=== PATIENT | female | born 1935 | race Caucasian/White ===

== ENCOUNTER → 2016-07-01 | Outpatient (CLI) | payer BC ==
[~2016-07-01] MED LIST: AMIT25TA19 PO; ASPI-232 PO; BIOTCAP2 PO; BNC20 PO; BUDESUS NAE; CLBCRM30 EXT; CYAN3INJ IM; DIAZ-165 PO; DPH/ PO; ERGO1CAP35 PO; HYDR1LIQ8 PO; MULT-614 PO; NITR1CAP32 PO
[2016-07-01 16:47] LABS: BASO % 0.4 %; BASO ABS # 0.03 K/uL (0-0.2); COMPLETE YES; EOS % 1.6 %; HEMATOCRIT 36.5 % (37-47); IG% 0.1 %; LYMPH % 22.1 %; LYMPH ABS # 1.49 K/uL (1.2-3.4); MEAN CELL VOLUME 95.1 fL (80-100); MEAN CORPUSCULAR HEMOGLOBIN 31.5 pg (25-34); MEAN CORPUSCULAR HGB CONC 33.2 g/dl (32-36); MEAN PLATELET VOLUME 10.3 fL (7.4-10.4); NEUT % 67.8 %; PLATELET COUNT 300 K/uL (130-400); RED BLOOD COUNT 3.84 M/uL (4.2-5.4); WHITE BLOOD COUNT 6.75 K/uL (4.8-10.8)
[2016-07-01 17:03] LABS: ALT/SGPT 23 U/L (12-78); AST/SGOT 13 U/L (15-37); BLOOD UREA NITROGEN 19 mg/dl (7-18); BUN/CREATININE RATIO 19.4 (10-20); CALCIUM 9.2 mg/dl (8.5-10.1); CARBON DIOXIDE 27 mmol/L (21-32); CHLORIDE 104 mmol/L (98-107); CHOLESTEROL 258 mg/dl (0-200); CREATININE 0.99 mg/dl (0.60-1.20); GLUCOSE 103 mg/dl (70-99); POTASSIUM 4.1 mmol/L (3.5-5.1); SODIUM 141 mmol/L (136-145)
[2016-07-01 17:14] LABS: ALB/GLOB RATIO 1.1 (0.9-2); ALKALINE PHOSPHATASE 89 U/L (45-117); CHOLESTEROL/HDL RATIO 2.4; HDL CHOLESTEROL 109 mg/dl; LDL CHOLESTEROL CALCULATED 131 mg/dl; TRIGLYCERIDES 91 mg/dl (0-150); VERY LOW DENSITY LIPOPROT CALC 18 mg/dl
[2016-07-02 06:14] LABS: ESTIMATED AVERAGE GLUCOSE 108 mg/dl; HA1C FLAG Normal (Normal)
== END | disposition home or self-care (01) ==
LOC: C.LABBC 15:16
PROVIDERS: ATTEND Internal Medicine
DX: E55.9 Vitamin D deficiency, unspecified (principal)

== ENCOUNTER → 2016-12-03 | Outpatient (CLI) | payer BC ==
--- NOTE | 2016-12-03 11:34 | DIAGNOSTIC IMAGING REPORT ---
DOUBLE CONTRAST UPPER GI SERIES CLINICAL HISTORY: Abdominal fullness. Upper abdominal pain. COMPARISON STUDY: No priors. TECHNIQUE: A standard air contrast upper GI series was performed. Spot images of the esophagus and stomach were obtained in multiple obliquities both upright and prone. FINDINGS: The patient swallowed barium without difficulty. The esophagus is structurally normal without evidence of intrinsic or extrinsic mass. The esophageal mucosal pattern is normal. No gastroesophageal reflux was elicited by having the patient perform the Valsalva maneuver. The gastroesophageal junction distends normally. The stomach is normal in configuration and demonstrates normal distensibility. No mass or ulceration is identified. There was no evidence of gastritis. The duodenal bulb and sweep are unremarkable. Fluoroscopy time: 1.8 minutes. Fluoroscopic images: 21 IMPRESSION: Unremarkable fluoroscopic upper GI assessment. Electronically signed by: Gunnar Parker M.D. 12/03/2016 11:33 AM Dictated Date/Time: 12/03/2016 11:32 AM
== END | disposition home or self-care (01) ==
LOC: C.RAD 10:19
PROVIDERS: ATTEND Internal Medicine
DX: R10.13 Epigastric pain (principal)

== ENCOUNTER → 2017-06-07 | Outpatient (CLI) | payer BC ==
[2017-06-07 16:49] LABS: BASO % 0.5 %; BASO ABS # 0.03 K/uL (0-0.2); EOS ABS # 0.06 K/uL (0-0.5); IG# 0.01 K/uL (0.00-0.02); LYMPH % 20.6 %; LYMPH ABS # 1.28 K/uL (1.2-3.4); MEAN CELL VOLUME 98.6 fL (80-100); MEAN CORPUSCULAR HEMOGLOBIN 32.9 pg (25-34); MEAN CORPUSCULAR HGB CONC 33.3 g/dl (32-36); MEAN PLATELET VOLUME 10.6 fL (7.4-10.4); MONO % 7.9 %; MONO ABS # 0.49 K/uL (0.11-0.59); NEUT % 69.8 %; NEUT ABS # 4.35 K/uL (1.4-6.5); PLATELET COUNT 290 K/uL (130-400); RED CELL DISTRIBUTION WIDTH CV 12.9 % (11.5-14.5); RED CELL DISTRIBUTION WIDTH SD 46.8 fL (36.4-46.3); WHITE BLOOD COUNT 6.22 K/uL (4.8-10.8)
[2017-06-07 17:20] LABS: ALBUMIN 4.1 gm/dl (3.4-5.0); ALT/SGPT 27 U/L (12-78); AST/SGOT 19 U/L (15-37); BLOOD UREA NITROGEN 22 mg/dl (7-18); CALCIUM 9.5 mg/dl (8.5-10.1); CARBON DIOXIDE 30 mmol/L (21-32); CHOLESTEROL 258 mg/dl (0-200); CREATININE 0.94 mg/dl (0.60-1.20); GLUCOSE 89 mg/dl (70-99); POTASSIUM 3.9 mmol/L (3.5-5.1); SODIUM 136 mmol/L (136-145)
[2017-06-07 17:30] LABS: ALKALINE PHOSPHATASE 80 U/L (45-117); LDL CHOLESTEROL CALCULATED 121 mg/dl; TOTAL PROTEIN 7.7 gm/dl (6.4-8.2)
[2017-06-08 07:09] LABS: HEMOGLOBIN A1C 5.3 % (4.5-5.6)
== END | disposition home or self-care (01) ==
LOC: C.LABBC 15:13
PROVIDERS: ATTEND Internal Medicine
DX: I10 Essential (primary) hypertension (principal); K58.9 Irritable bowel syndrome, unspecified; E78.5 Hyperlipidemia, unspecified; I65.29 Occlusion and stenosis of unspecified carotid artery; F41.9 Anxiety disorder, unspecified; R73.01 Impaired fasting glucose

== ENCOUNTER → 2017-12-16 | Outpatient (CLI) | payer BC | END | disposition home or self-care (01) | LOC: C.LABBC 15:13 | PROVIDERS: ATTEND Family Medicine Adult Medicine | DX: D51.0 Vitamin B12 deficiency anemia due to intrinsic factor deficiency (principal); E53.8 Deficiency of other specified B group vitamins ==

== ENCOUNTER 2019-04-09 10:48 | Inpatient (IN) ==
[2019-04-09] MEDS ORDERED: SODIUM CHLORIDE 0.9% 1000ML 500 ML IV ONE (11:40)
[2019-04-09] MEDS ORDERED: OLMESARTAN MEDOXOMIL 20 MG TAB PO SCH (11:45)
[2019-04-09] MEDS ORDERED: SODIUM CHLORIDE 0.9% 500 ML IV SCH (11:45)
[2019-04-09 12:02] LABS: Basophils # (auto) 0.02 K/uL (0-0.2); Basophils % (auto) 0.3 %; Eosinophils # (auto) 0.01 K/uL (0-0.5); Eosinophils % (auto) 0.2 %; Hematocrit (blood only) 39.4 % (37-47); Hemoglobin 14.1 g/dL (12.0-16.0); Immature Granulocytes # (auto) 0.01 K/uL (0.00-0.02); Immature Granulocytes % (auto) 0.2 %; Lymphocytes # (auto) 0.64 K/uL (1.2-3.4); Lymphocytes % (auto) 11.1 %; Mean Corpuscular Hemoglobin 33.1 pg (25-34); Mean Corpuscular Hgb Conc 35.8 g/dL (32-36); Mean Corpuscular Volume 92.5 fL (80-100); Mean Platelet Volume 10.4 fL (7.4-10.4); Monocytes # (auto) 0.53 K/uL (0.11-0.59); Monocytes % (auto) 9.2 %; Neutrophils # (auto) 4.56 K/uL (1.4-6.5); Platelet Count 390 K/uL (130-400); RDW Coefficient of Variation 11.8 % (11.5-14.5); RDW Standard Deviation 39.5 fL (36.4-46.3); Red Blood Count 4.26 M/uL (4.2-5.4); White Blood Count 5.77 K/uL (4.8-10.8)
[2019-04-09 12:16] LABS: Albumin Level 4.2 gm/dl (3.4-5.0); BUN Creatinine Ratio 18.9 (10-20); Calcium 9.4 mg/dl (8.5-10.1); Creatinine Clr Calc Pharmacy 30.9 ml/min; Est GFR (African American) 76.1; Est GFR (Non-African American) 65.7; Potassium 3.8 mmol/L (3.5-5.1)
[2019-04-09 12:18] LABS: Albumin Globulin Ratio 1.1 (0.9-2); Bilirubin,Total 0.9 mg/dl (0.2-1); Globulin 3.7 gm/dl (2.5-4.0); Total Protein 7.9 gm/dl (6.4-8.2)
--- NOTE | 2019-04-09 12:24 | XRay Report ---
XR chest 2V PA/lateral CLINICAL HISTORY: 83 years-old Female presenting with shortness of breath recent PNA. TECHNIQUE: PA and lateral views of the chest were obtained. COMPARISON: 04/05/2019. FINDINGS: Atherosclerosis of the aortic arch. Cardiac silhouette normal in size. Calcified bilateral breast imp lants noted. Lungs are hyperinflated. Minimal bibasilar opacity on lateral projection, stable to slig htly less prominent on the current exam. No new focal opacity. No pleural effusion or pneumothorax. D egenerative changes of the thoracic spine. Upper abdomen normal. IMPRESSION: 1. Minimal bibasilar opacity on lateral projection is stable to decreased from prior exam and may re present minimal scarring or atelectasis. 2. Emphysema. No focal infiltrate to suggest pneumonia. Electronically signed by: Cali Espinoaz M.D. 04/09/2019 12:22 PM
--- NOTE | 2019-04-09 15:46 | Emergency Department Note ---
Entered by Monica Ochoa acting as a scribe for History of Present Illness General Chief complaint: Diarrhea Time Seen by Provider: 04/09/19 11:07 Source: patient History of Present Illness Onset (ago): day(s) 4 Location: abdomen Pain Consistency: + constant Maximum Pain Intensity: 9 Quality: + other (diarrhea) Associated symptoms: + cough (with white sputum), + fever/chills, + headaches, + nausea/vomiting (-vomiting), + shortness of breath and + other (+fatigued) The patient is an 83 year old female, with past medical history of hypertension and anxiety, who presents to the Emergency Room with complaints of constant diarrhea over the past 4 days. The patient states she was seen in the ED 4 days ago when she was diagnosed with pneumonia and prescribed cefdinir. She states her diarrhea started after starting cefdinir. She also notes she has felt fatigued, increased shortness of breath, cough with white sputum, headache, and nausea. The patient reports she has been able to drink fine, but she states anything that she eats goes "right through" her. The patient notes her PCP referred her to the ED. She also reports of a fever that she states started once she started the antibiotics. She states her temperature has reached 103 over the past few days, and she states her temperature was just over 100 prior to arrival. Home Medications Home Medications Medication Instructions Recorded Confirmed Type acetaminophen 325 mg capsule 325 mg PO Q6H PRN 10/17/18 04/09/19 History aspirin 81 mg tablet,delayed 81 mg PO QAM tab 10/17/18 04/09/19 History release biotin 5 mg capsule 5 mg PO QAM cap 10/17/18 04/09/19 History diphenhydramine HCl 25 mg capsule 25 mg PO DAILY PRN cap 10/17/18 04/09/19 History diphenoxylate-atropine 2.5 2 tab PO QID PRN #180 tab 10/17/18 04/09/19 History mg-0.025 mg tablet ergocalciferol (vitamin D2) 50,000 50,000 units PO MONTHLY #3 cap 10/17/18 04/09/19 History unit capsule nitrofurantoin 100 mg PO UD #30 cap 12/05/18 04/09/19 History monohydrate/macrocrystals 100 mg capsule multivit with 1 tab PO QAM 11/03/19 12/09/19 History tjldlfve-eyfw-KM-lutein 8 mg iron-400 mcg-300 mcg tablet syringe with needle 3 mL 25 x 5/8" #6 ea 03/05/19 03/06/19 Rx amitriptyline 25 mg tablet 50 mg PO HS #60 tab 03/09/19 04/09/19 Rx diazepam 5 mg tablet 10 mg PO AC PRN #180 tab 03/12/19 04/09/19 Rx benzonatate 200 mg capsule 200 mg PO TID PRN #30 cap 04/02/19 04/09/19 Rx albuterol sulfate [Ventolin HFA] 1 puffs INH Q6H PRN #8 gm 04/05/19 04/09/19 Rx benzonatate [Tessalon Perles] 100 mg PO TID PRN #30 cap 04/05/19 04/09/19 Rx budesonide [Rhinocort Allergy] 2 spray INTRANASAL DAILY 04/05/19 04/09/19 History cefdinir 300 mg PO BID #28 cap 04/05/19 04/09/19 Rx cyanocobalamin (vitamin B-12) 1,000 mcg IM .EVERY 2 WEEKS 04/05/19 04/09/19 History olmesartan [Benicar] 20 mg PO QAM 04/09/19 04/09/19 History Allergies Allergy/AdvReac Type Severity Reaction Status Date / Time Penicillins Allergy Mild Verified 04/09/19 13:39 acetaminophen Allergy Verified 04/09/19 13:39 [From Tylenol-Codeine] aloe vera Allergy Verified 04/09/19 13:39 amlodipine [From Norvasc] Allergy Verified 04/09/19 13:39 ciprofloxacin Allergy Anaphylaxis Verified 04/09/19 13:39 codeine Allergy Verified 04/09/19 13:39 [From Tylenol-Codeine] meloxicam Allergy Verified 04/09/19 13:39 pseudoephedrine Allergy Verified 04/09/19 13:39 [From Sudafed] pantoprazole AdvReac Intermediate Gastrointestinal Verified 04/09/19 13:39 Upset Past Med/Surg History Medical History Anemia Anxiety disorder Generalized osteoarthritis of multiple sites (Acute) HTN (hypertension) (Acute) Hyperlipidemia (Acute) Impaired fasting glucose Irritable bowel syndrome Knee pain, bilateral Osteopenia Pernicious anemia Vitamin B12 deficiency Vitamin D deficiency Family History Father Congestive heart failure Aunt Breast cancer Atrial fibrillation Social History Preferred Language: Kazakh Communication Ability: Effective Visual Impairment: No Limitations Hearing Ability: Normal Machine Clipper Required: No Beliefs That Will Affect Care: None marital status: Current Living Situation: Spouse current occupational status: retired Other Information That Helps Us Care for You: No Feels Safe at Home: Yes Safety Concerns: Feels Safe At This Time Smoking Status: Former smoker Do You Dip or Chew Tobacco: No ; Second Hand Exposure: No ; Tobacco Cessation Education Requested by Patient: No Hx Alcohol Use: Yes Alcohol type: wine Alcohol Intake Frequency: Daily Hx Substance Use: No Childhood Exposure to Second-Hand Smoke: Yes Dental Care, Regularly: Yes Physical Activity Frequency: Does not Exercise Seatbelt Use: always Sunscreen Use: Yes Review of Systems See HPI for pertinent positives & negatives. and A total of 10 systems reviewed and were otherwise negative Physical Exam Vital Signs Vital Signs - 24 hr 04/09/19 10:57 04/09/19 10:59 04/09/19 11:00 Temperature Temperature Source Pulse Rate 101 H 96 H 99 H Pulse Rate [Apical] Pulse Rate from SpO2 Sensor 97 H 98 H Pulse Rhythm Pulse Strength Respiratory Rate 24 24 21 Respiratory Effort / Characteristics Respiratory Depth Respiratory Pattern Blood Pressure 198/110 H 190/106 H Blood Pressure [Left Arm] Blood Pressure Mean 144 126 Blood Pressure Mean [Left Arm] Blood Pressure Position Pulse Oximetry 98 98 Oxygen Delivery Method Sepsis Recent Fever Within 48 Hours Sepsis New/Unexplained Change in Mental Status Sepsis Action Taken by Nursing 04/09/19 11:01 04/09/19 11:10 04/09/19 11:20 Temperature 36.7 C Temperature Source Oral Pulse Rate 96 H 97 H 92 H Pulse Rate [Apical] Pulse Rate from SpO2 Sensor 97 H 91 H Pulse Rhythm Regular Pulse Strength Normal Respiratory Rate 22 19 23 Respiratory Effort / Characteristics Non-Labored Spontaneous Respiratory Depth Normal Respiratory Pattern Regular Blood Pressure 198/110 H Blood Pressure [Left Arm] Blood Pressure Mean 139 Blood Pressure Mean [Left Arm] Blood Pressure Position Sitting Pulse Oximetry 97 98 98 Oxygen Delivery Method Room Air Sepsis Recent Fever Within 48 Hours No Sepsis New/Unexplained Change in Mental Status No Sepsis Action Taken by Nursing No Action Required 04/09/19 11:30 04/09/19 11:31 04/09/19 11:40 Temperature Temperature Source Pulse Rate 101 H 98 H 87 Pulse Rate [Apical] Pulse Rate from SpO2 Sensor 101 H 98 H 89 Pulse Rhythm Pulse Strength Respiratory Rate 19 21 20 Respiratory Effort / Characteristics Respiratory Depth Respiratory Pattern Blood Pressure 168/101 H Blood Pressure [Left Arm] Blood Pressure Mean 120 Blood Pressure Mean [Left Arm] Blood Pressure Position Pulse Oximetry 98 97 97 Oxygen Delivery Method Sepsis Recent Fever Within 48 Hours Sepsis New/Unexplained Change in Mental Status Sepsis Action Taken by Nursing 04/09/19 11:50 04/09/19 12:00 04/09/19 12:10 Temperature Temperature Source Pulse Rate 102 H 94 H Pulse Rate [Apical] Pulse Rate from SpO2 Sensor 101 H 94 H Pulse Rhythm Pulse Strength Respiratory Rate 16 24 Respiratory Effort / Characteristics Respiratory Depth Respiratory Pattern Blood Pressure 181/94 H Blood Pressure [Left Arm] Blood Pressure Mean 113 Blood Pressure Mean [Left Arm] Blood Pressure Position Pulse Oximetry 98 93 Oxygen Delivery Method Sepsis Recent Fever Within 48 Hours Sepsis New/Unexplained Change in Mental Status Sepsis Action Taken by Nursing 04/09/19 12:20 04/09/19 12:21 04/09/19 12:30 Temperature Temperature Source Pulse Rate 92 H 92 H Pulse Rate [Apical] 96 H Pulse Rate from SpO2 Sensor 91 H 93 H Pulse Rhythm Pulse Strength Respiratory Rate 16 20 18 Respiratory Effort / Characteristics Respiratory Depth Respiratory Pattern Blood Pressure 189/105 H Blood Pressure [Left Arm] 181/94 H Blood Pressure Mean 150 Blood Pressure Mean [Left Arm] 123 Blood Pressure Position Pulse Oximetry 98 96 100 Oxygen Delivery Method Room Air Sepsis Recent Fever Within 48 Hours Sepsis New/Unexplained Change in Mental Status Sepsis Action Taken by Nursing 04/09/19 12:31 04/09/19 12:40 04/09/19 12:50 Temperature Temperature Source Pulse Rate 90 94 H 96 H Pulse Rate [Apical] Pulse Rate from SpO2 Sensor 90 94 H 94 H Pulse Rhythm Pulse Strength Respiratory Rate 19 17 18 Respiratory Effort / Characteristics Respiratory Depth Respiratory Pattern Blood Pressure Blood Pressure [Left Arm] Blood Pressure Mean Blood Pressure Mean [Left Arm] Blood Pressure Position Pulse Oximetry 98 98 98 Oxygen Delivery Method Sepsis Recent Fever Within 48 Hours Sepsis New/Unexplained Change in Mental Status Sepsis Action Taken by Nursing 04/09/19 13:02 04/09/19 13:04 04/09/19 13:10 Temperature Temperature Source Pulse Rate 120 H 108 H 98 H Pulse Rate [Apical] Pulse Rate from SpO2 Sensor 106 H 98 H Pulse Rhythm Pulse Strength Respiratory Rate 23 22 19 Respiratory Effort / Characteristics Respiratory Depth Respiratory Pattern Blood Pressure 202/130 H Blood Pressure [Left Arm] Blood Pressure Mean 142 Blood Pressure Mean [Left Arm] Blood Pressure Position Pulse Oximetry 96 97 Oxygen Delivery Method Sepsis Recent Fever Within 48 Hours Sepsis New/Unexplained Change in Mental Status Sepsis Action Taken by Nursing 04/09/19 13:20 04/09/19 13:30 04/09/19 13:31 Temperature Temperature Source Pulse Rate 97 H 101 H 101 H Pulse Rate [Apical] Pulse Rate from SpO2 Sensor 98 H 99 H 100 H Pulse Rhythm Pulse Strength Respiratory Rate 18 18 21 Respiratory Effort / Characteristics Respiratory Depth Respiratory Pattern Blood Pressure 185/112 H Blood Pressure [Left Arm] Blood Pressure Mean 157 Blood Pressure Mean [Left Arm] Blood Pressure Position Pulse Oximetry 98 97 97 Oxygen Delivery Method Sepsis Recent Fever Within 48 Hours Sepsis New/Unexplained Change in Mental Status Sepsis Action Taken by Nursing 04/09/19 13:40 04/09/19 13:50 04/09/19 14:00 Temperature Temperature Source Pulse Rate 98 H 89 95 H Pulse Rate [Apical] Pulse Rate from SpO2 Sensor 99 H 91 H 96 H Pulse Rhythm Pulse Strength Respiratory Rate 17 20 17 Respiratory Effort / Characteristics Respiratory Depth Respiratory Pattern Blood Pressure 183/113 H Blood Pressure [Left Arm] Blood Pressure Mean 155 Blood Pressure Mean [Left Arm] Blood Pressure Position Pulse Oximetry 97 97 97 Oxygen Delivery Method Sepsis Recent Fever Within 48 Hours Sepsis New/Unexplained Change in Mental Status Sepsis Action Taken by Nursing 04/09/19 14:01 04/09/19 14:10 04/09/19 14:31 Temperature Temperature Source Pulse Rate 95 H 90 103 H Pulse Rate [Apical] Pulse Rate from SpO2 Sensor 97 H 89 Pulse Rhythm Pulse Strength Respiratory Rate 19 29 H 18 Respiratory Effort / Characteristics Respiratory Depth Respiratory Pattern Blood Pressure Blood Pressure [Left Arm] Blood Pressure Mean Blood Pressure Mean [Left Arm] Blood Pressure Position Pulse Oximetry 97 97 Oxygen Delivery Method Sepsis Recent Fever Within 48 Hours Sepsis New/Unexplained Change in Mental Status Sepsis Action Taken by Nursing 04/09/19 14:33 04/09/19 14:40 04/09/19 14:50 Temperature Temperature Source Pulse Rate 100 H 101 H Pulse Rate [Apical] 100 H Pulse Rate from SpO2 Sensor 99 H 95 H Pulse Rhythm Pulse Strength Respiratory Rate 20 19 18 Respiratory Effort / Characteristics Respiratory Depth Respiratory Pattern Blood Pressure Blood Pressure [Left Arm] 179/89 H Blood Pressure Mean Blood Pressure Mean [Left Arm] 119 Blood Pressure Position Pulse Oximetry 99 98 98 Oxygen Delivery Method Room Air Sepsis Recent Fever Within 48 Hours Sepsis New/Unexplained Change in Mental Status Sepsis Action Taken by Nursing 04/09/19 15:00 04/09/19 15:01 04/09/19 15:20 Temperature Temperature Source Pulse Rate 101 H 103 H 113 H Pulse Rate [Apical] Pulse Rate from SpO2 Sensor 105 H 104 H Pulse Rhythm Pulse Strength Respiratory Rate 18 20 26 H Respiratory Effort / Characteristics Respiratory Depth Respiratory Pattern Blood Pressure 181/113 H Blood Pressure [Left Arm] Blood Pressure Mean 159 Blood Pressure Mean [Left Arm] Blood Pressure Position Pulse Oximetry 98 95 Oxygen Delivery Method Sepsis Recent Fever Within 48 Hours Sepsis New/Unexplained Change in Mental Status Sepsis Action Taken by Nursing 04/09/19 15:30 04/09/19 15:31 Temperature Temperature Source Pulse Rate 95 H 99 H Pulse Rate [Apical] Pulse Rate from SpO2 Sensor Pulse Rhythm Pulse Strength Respiratory Rate 24 21 Respiratory Effort / Characteristics Respiratory Depth Respiratory Pattern Blood Pressure 164/122 H Blood Pressure [Left Arm] Blood Pressure Mean 135 Blood Pressure Mean [Left Arm] Blood Pressure Position Pulse Oximetry Oxygen Delivery Method Sepsis Recent Fever Within 48 Hours Sepsis New/Unexplained Change in Mental Status Sepsis Action Taken by Nursing Vital signs reviewed. General: Well-appearing, elderly, in no significant distress. HEENT: No scleral icterus, PERRLA, neck supple. Dry mucus membranes. Atraumatic. Cardiovascular: Regular rate and rhythm, no extra sounds. Pulmonary: Clear to auscultation bilaterally, normal work of breathing. Abdomen: Soft, mild lower abdomen tenderness, nondistended, positive bowel sounds. Musculoskeletal: Atraumatic, no peripheral edema. Neurologic: Patient awake alert and oriented x 3. Skin: Warm, dry, no rash. Somewhat pale in appearance. Course Course 1115: Past medical records reviewed. The patient was evaluated in room C4 by Resident-Barry Betancur. A complete history and physical exam was performed. 1149: I evaluated the patient. A complete history and physical exam was performed. 1400: I reviewed the [facility]'s [facility] He will evaluate the patient for further management. Consultations Consultation #1: I reviewed the patient's [facility] He will evaluate the patient for further management. Time: 14:00 Administered Medications Al Hydrox/Mg Hydrox/Simethicone (Maalox) 15 ml PO Q4H PRN PRN Reason: Dyspepsia Stop: 05/09/19 17:01 Last Admin: 04/11/19 08:19 Dose: 15 ml Documented by: [id number] Admin: 04/10/19 21:25 Dose: 15 ml Documented by: [id number] Amitriptyline HCl (Elavil) 50 mg PO HS [facility] Stop: 05/09/19 20:59 Last Admin: 04/10/19 21:25 Dose: 50 mg Documented by: [id number] Admin: 04/09/19 20:17 Dose: 50 mg Documented by: [id number] Aspirin (Ecotrin Ectab) 81 mg PO QAM [facility] Stop: 05/10/19 08:59 Last Admin: 04/11/19 08:59 Dose: 81 mg Documented by: [id number] Admin: 04/10/19 08:26 Dose: 81 mg Documented by: [id number] Budesonide (Rhinocort Aq) 2 sprays NA DAILY [facility] Stop: 05/10/19 08:59 Last Admin: 04/11/19 09:00 Dose: 2 sprays Documented by: [id number] Admin: 04/10/19 08:26 Dose: 2 sprays Documented by: [id number] Diphenhydramine HCl (Benadryl Capsule) 25 mg PO DAILY PRN PRN Reason: PRN Stop: 05/09/19 16:58 Last Admin: 04/10/19 22:01 Dose: 25 mg Documented by: [id number] Heparin Sodium (Porcine) (Heparin Sodium (Porcine)) 5,000 units SQ Q12 [facility] Stop: 05/09/19 20:59 Last Admin: 04/11/19 09:01 Dose: 5,000 units Documented by: [id number] Cosigned by: [id number] Admin: 04/10/19 22:21 Dose: Not Given Documented by: [id number] Admin: 04/10/19 08:25 Dose: 5,000 units Documented by: [id number] Cosigned by: [id number] Admin: 04/09/19 20:17 Dose: 5,000 units Documented by: [id number] Cosigned by: [id number] Hydralazine HCl (Hydralazine Hcl) 10 mg IV Q4H PRN PRN Reason: Hypertension Stop: 05/10/19 04:09 Last Admin: 04/10/19 04:41 Dose: 10 mg Documented by: [id number] Sodium Chloride (Nss 1000ml) 1,000 mls @ 100 mls/hr IV .Q10H PRATEEK Stop: 05/09/19 19:29 Last Admin: 04/11/19 10:08 Dose: 100 mls/hr Documented by: [id number] Infusion: 04/11/19 10:08 Dose: 100 mls/hr Documented by: [id number] Admin: 04/10/19 23:32 Dose: 60 mls/hr Documented by: [id number] Infusion: 04/10/19 23:32 Dose: 60 mls/hr Documented by: [id number] Admin: 04/10/19 12:28 Dose: 60 mls/hr Documented by: [id number] Infusion: 04/10/19 12:28 Dose: 60 mls/hr Documented by: [id number] Admin: 04/09/19 20:13 Dose: 60 mls/hr Documented by: [id number] Ceftriaxone Sodium 1,000 mg/ (Dextrose) 60 mls @ 100 mls/hr IV Q24H PRATEEK; Protocol Stop: 04/11/19 19:59 Last Infusion: 04/10/19 22:03 Dose: 0 mls/hr Documented by: [id number] Admin: 04/10/19 21:25 Dose: 100 mls/hr Documented by: [id number] Infusion: 04/09/19 20:58 Dose: 0 mls/hr Documented by: [id number] Admin: 04/09/19 20:16 Dose: 100 mls/hr Documented by: [id number] Lactobacillus Acidophilus (Floranex Granules/Powder Packet) 1 gm PO TIDM [facility] Stop: 05/10/19 07:59 Last Admin: 04/11/19 13:20 Dose: 1 gm Documented by: [id number] Admin: 04/11/19 09:00 Dose: 1 gm Documented by: [id number] Admin: 04/10/19 17:39 Dose: 1 gm Documented by: [id number] Admin: 04/10/19 12:28 Dose: 1 gm Documented by: [id number] Admin: 04/10/19 08:25 Dose: 1 gm Documented by: [id number] Metoprolol Tartrate (Lopressor) 25 mg PO BID [facility] Stop: 05/09/19 20:59 Last Admin: 04/11/19 08:59 Dose: 25 mg Documented by: [id number] Admin: 04/10/19 21:25 Dose: 25 mg Documented by: [id number] Admin: 04/10/19 08:25 Dose: 25 mg Documented by: [id number] Admin: 04/09/19 21:05 Dose: 25 mg Documented by: [id number] Olmesartan (Benicar) 20 mg PO QAM [facility] Stop: 05/10/19 08:59 Last Admin: 04/11/19 09:00 Dose: 20 mg Documented by: [id number] Admin: 04/10/19 08:24 Dose: 20 mg Documented by: [id number] Sodium Chloride (Sodium Chloride) 1 gm PO DAILY [facility] Stop: 05/10/19 08:59 Last Admin: 04/11/19 08:59 Dose: 1 gm Documented by: [id number] Admin: 04/10/19 08:31 Dose: 1 gm Documented by: [id number] Zolpidem Tartrate (Ambien) 5 mg PO HS PRN PRN Reason: Sleep Stop: 05/09/19 17:01 Last Admin: 04/10/19 23:32 Dose: 5 mg Documented by: [id number] Discontinued Medications Acetaminophen (Tylenol) 325 mg PO Q6H PRN PRN Reason: pain/fever Stop: 05/07/19 16:58 Last Admin: 04/10/19 04:45 Dose: 325 mg Documented by: [id number] Acetaminophen (Tylenol) 1,000 mg PO ONE ONE Stop: 04/10/19 17:23 Last Admin: 04/10/19 17:40 Dose: 1,000 mg Documented by: [id number] Sodium Chloride (Nss 1000ml) 500 mls @ 999 mls/hr IV .Q31M ONE Stop: 04/09/19 12:10 Last Infusion: 04/09/19 12:56 Dose: 0 mls/hr Documented by: [id number] Admin: 04/09/19 11:43 Dose: 999 mls/hr Documented by: [id number] Sodium Chloride (Nss) 500 mls @ 80 mls/hr IV .Q6H15M [facility]EK Stop: 04/09/19 17:59 Last Infusion: 04/09/19 19:04 Dose: 0 mls/hr Documented by: [id number] Admin: 04/09/19 11:43 Dose: 80 mls/hr Documented by: [id number] Lidocaine/Epinephrine (Xylocaine/Epine 2% 1:100,000) 20 ml INFIL ONE ONE Stop: 04/10/19 16:45 Last Admin: 04/10/19 23:57 Dose: Not Given Documented by: [id number] Olmesartan (Benicar) 20 mg PO QAM [facility] Stop: 05/09/19 11:44 Last Admin: 04/09/19 12:20 Dose: 20 mg Documented by: [id number] Raspberry (Raspberry) 5 ml PO Q6 [facility] Stop: 04/23/19 19:59 Last Admin: 04/10/19 00:15 Dose: Not Given Documented by: [id number] Admin: 04/09/19 20:17 Dose: 5 ml Documented by: [id number] Vancomycin HCl (Vancomycin Hcl) 250 mg PO Q6 [facility] Stop: 04/19/19 19:59 Last Admin: 04/10/19 00:15 Dose: Not Given Documented by: [id number] Admin: 04/09/19 20:17 Dose: 250 mg Documented by: [id number] Medical Decision Making Differential Diagnosis Differential diagnoses include C. Diff colitis, GI bleed, viral illness, ischemic colitis, food borne pathogen, amongst others that were considered. Medical Records Attestation: I reviewed the patient's medical records. Home Medications Current Medication List: was personally reviewed by me Laboratory Data Attestation: I reviewed the patient's lab results. Result diagrams: 04/11/19 05:51 04/11/19 05:51 Lab Results 04/09/19 04/09/19 Range/Units 11:15 11:15 WBC 5.77 (4.8-10.8) K/uL RBC 4.26 (4.2-5.4) M/uL Hgb 14.1 (12.0-16.0) g/dL Hct 39.4 (37-47) % MCV 92.5 (80-100) fL MCH 33.1 (25-34) pg MCHC 35.8 (32-36) g/dL RDW Std Deviation 39.5 (36.4-46.3) fL RDW Coeff of Ramone 11.8 (11.5-14.5) % Plt Count 390 (130-400) K/uL MPV 10.4 (7.4-10.4) fL Immature Gran % (Auto) 0.2 % Neut % (Auto) 79.0 % Lymph % (Auto) 11.1 % Wilcox % (Auto) 9.2 % Eos % (Auto) 0.2 % Baso % (Auto) 0.3 % Immature Gran # (Auto) 0.01 (0.00-0.02) K/uL Neut # (Auto) 4.56 (1.4-6.5) K/uL Lymph # (Auto) 0.64 L (1.2-3.4) K/uL Wilcox # (Auto) 0.53 (0.11-0.59) K/uL Eos # (Auto) 0.01 (0-0.5) K/uL Baso # (Auto) 0.02 (0-0.2) K/uL Sodium 125 L (136-145) mmol/L Potassium 3.8 (3.5-5.1) mmol/L Chloride 87 L (98-107) mmol/L Carbon Dioxide 23 (21-32) mmol/L Anion Gap 15.0 H (3-11) BUN 16 (7-18) mg/dl Creatinine 0.83 (0.6-1.2) mg/dl Est Cr Clr Drug Dosing 30.9 ml/min Est GFR ( Amer) 76.1 Est GFR (Non-Af Amer) 65.7 BUN/Creatinine Ratio 18.9 (10-20) Glucose 80 (70-99) mg/dl Calcium 9.4 (8.5-10.1) mg/dl Total Bilirubin 0.9 (0.2-1) mg/dl AST 26 (15-37) U/L ALT 32 (12-78) U/L Alkaline Phosphatase 82 (45-117) U/L Total Protein 7.9 (6.4-8.2) gm/dl Albumin 4.2 (3.4-5.0) gm/dl Globulin 3.7 (2.5-4.0) gm/dl Albumin/Globulin Ratio 1.1 (0.9-2) Imaging Data Radiologist's Impression: Radiology results as stated below per my review and the radiologist's interpretation: XR chest 2V PA/lateral CLINICAL HISTORY: 83 years-old Female presenting with shortness of breath recent PNA. TECHNIQUE: PA and lateral views of the chest were obtained. COMPARISON: 04/05/2019. FINDINGS: Atherosclerosis of the aortic arch. Cardiac silhouette normal in size. Calcified bilateral breast implants noted. Lungs are hyperinflated. Minimal bibasilar opacity on lateral projection, stable to slightly less prominent on the current exam. No new focal opacity. No pleural effusion or pneumothorax. Degenerative changes of the thoracic spine. Upper abdomen normal. IMPRESSION: 1. Minimal bibasilar opacity on lateral projection is stable to decreased from prior exam and may represent minimal scarring or atelectasis. 2. Emphysema. No focal infiltrate to suggest pneumonia. Electronically signed by: Cali Espinoza M.D. 04/09/2019 12:22 PM ECG Data Attestation: I personally reviewed and interpreted this ECG as follows: Indication: + SOB/dyspnea Rate (beats per minute): 95 Rhythm: + normal sinus ECG Intervals/blocks: + Normal QT-c ECG ST segments: no ST depression and no ST elevation ECG Findings: no PACs and no PVCs Blood Pressure Blood Pressure Findings: Elevated blood pressure Blood Pressure Disposition: further management by hospitalist MDM Narrative This pt was evaluated and appeared to be in no distress. IV access was obtained and lab work was drawn. IVF were initiated. Pt is noted to be hyponatremic at 129. Pt was unable to provide a stool sample in the ED. Pt is feeling weak and will require IV fluid and sodium repletion. Pt was d/w the hospitalist service for further management. Impression & Plan Acute hyponatremia, Diarrhea Discharge Plan Visit Data *Final* Discharge Date/Time: 04/09/19 17:56 Chief Complaint: Diarrhea ED Provider: Chantelle Jackson Discharge Problem: Acute hyponatremia, Diarrhea Patient Disposition: Admitted As Inpatient Discharge Instructions Interventions: ED Discharge Assessment Last Done: 04/09/19 17:56 Discharge Problem: Diarrhea Qualifiers: Diarrhea type: presumed infectious Qualified Code(s): R19.7 - Diarrhea, unspecified The scribe's documentation has been prepared under my direction and personally reviewed by me in its entirety. I confirm that the note above accurately reflects all work, treatment, procedures, and medical decision making performed by me.
[2019-04-09] MEDS ORDERED: ALBUTEROL HFA 8 GM INHALER INH PRN (16:59)
[2019-04-09] MEDS ORDERED: diazePAM 5 MG TABLET PO PRN (16:59)
[2019-04-09] MEDS ORDERED: BENZONATATE 100 MG CAPSULE PO PRN ×2 (16:59)
[2019-04-09] MEDS ORDERED: ACETAMINOPHEN 325 MG TAB PO PRN (16:59)
[2019-04-09] MEDS ORDERED: MAGNESIUM HYDROXIDE SUSP 30 ML UDC PO PRN (17:02)
[2019-04-09] MEDS: SODIUM CHLORIDE 0.9% 1000ML 1,000 ML IV SCH (20:13)
[2019-04-09] MEDS: cefTRIAXone SODIUM 1,000 MG in DEXTROSE 5% 50 ML IV SCH (20:16)
[2019-04-09] MEDS: RASPBERRY SYRUP 5 ML UDP PO SCH (20:17)
[2019-04-09] MEDS: HEPARIN SOD 5,000 UNIT/0.5 ML VIAL SQ SCH (20:17)
[2019-04-09] MEDS: AMITRIPTYLINE HCL 25 MG TAB PO SCH (20:17)
[2019-04-09] MEDS: VANCOMYCIN HCL 250 MG/5 ML SOLN PO SCH (20:17)
--- NOTE | 2019-04-09 20:25 | History & Physical Report ---
Date of Service April 09, 2019 Assessment & Plan (1) Diarrhea associated with pseudomembranous colitis: In the setting of recent use of antibiotics, will order C. difficile Treat empirically for C. difficile with vancomycin 250 mg p.o. every 6 hours Ordered also stool culture Lactobacillus every 8 hours Further recommendation will follow (2) Pneumonia: Currently has been on cefdinir with improvement in her cough as per patient Continue ceftriaxone x3 more days with lactobacillus Then stop after 3 days all antibiotics for fear of C. difficile (3) Acute hyponatremia: Hypovolemic hyponatremia Continue normal saline infusion sodium level in a.m. (4) Vitamin B12 deficiency: On B12 injections every 2 weeks last was 2 days ago (5) HTN (hypertension): Currently elevated blood pressure with tachycardia Continue Benicar, add metoprolol 25 mg p.o. twice daily first dose now History of Present Illness Chief Complaint: Severe diarrhea Primary Care Provider: Cali Zuleta MD 83 years old female with past medical history of anxiety, osteoarthritis, essential hypertension, dyslipidemia, irritable bowel syndrome, pernicious anemia/B12 deficiency on B12 intramuscular injection every 2 weeks presented to the hospital on 04/05/2019 she was found to have suspected airspace consolidation in the posterior lung bases, she was giving cefdinir. Patient reported that her cough improved but 2 days ago she developed explosive diarrhea more than 12 times a day with severe decreased oral intake, presented to the hospital again and found to have acute hyponatremia and severe dehydration. Patient will be admitted for further evaluation and management. Allergies Allergy/AdvReac Type Severity Reaction Status Date / Time Penicillins Allergy Mild Verified 04/09/19 13:39 acetaminophen Allergy Verified 04/09/19 13:39 [From Tylenol-Codeine] aloe vera Allergy Verified 04/09/19 13:39 amlodipine [From Norvasc] Allergy Verified 04/09/19 13:39 ciprofloxacin Allergy Anaphylaxis Verified 04/09/19 13:39 codeine Allergy Verified 04/09/19 13:39 [From Tylenol-Codeine] meloxicam Allergy Verified 04/09/19 13:39 pseudoephedrine Allergy Verified 04/09/19 13:39 [From Sudafed] pantoprazole AdvReac Intermediate Gastrointestinal Verified 04/09/19 13:39 Upset Home Medications Home Medications Medication Instructions Recorded Confirmed Type acetaminophen 325 mg capsule 325 mg PO Q6H PRN 10/17/18 04/09/19 History aspirin 81 mg tablet,delayed 81 mg PO QAM tab 10/17/18 04/09/19 History release biotin 5 mg capsule 5 mg PO QAM cap 10/17/18 04/09/19 History diphenhydramine HCl 25 mg capsule 25 mg PO DAILY PRN cap 10/17/18 04/09/19 History diphenoxylate-atropine 2.5 2 tab PO QID PRN #180 tab 10/17/18 04/09/19 History mg-0.025 mg tablet ergocalciferol (vitamin D2) 50,000 50,000 units PO MONTHLY #3 cap 10/17/18 04/09/19 History unit capsule nitrofurantoin 100 mg PO UD #30 cap 12/05/18 04/09/19 History monohydrate/macrocrystals 100 mg capsule multivit with 1 tab PO QAM 03/04/19 04/09/19 History gpfoejbh-diog-OG-lutein 8 mg iron-400 mcg-300 mcg tablet syringe with needle 3 mL 25 x 5/8" #6 ea 03/05/19 03/06/19 Rx amitriptyline 25 mg tablet 50 mg PO HS #60 tab 03/09/19 04/09/19 Rx diazepam 5 mg tablet 10 mg PO AC PRN #180 tab 03/12/19 04/09/19 Rx benzonatate 200 mg capsule 200 mg PO TID PRN #30 cap 04/02/19 04/09/19 Rx albuterol sulfate [Ventolin HFA] 1 puffs INH Q6H PRN #8 gm 04/05/19 04/09/19 Rx benzonatate [Tessalon Perles] 100 mg PO TID PRN #30 cap 04/05/19 04/09/19 Rx budesonide [Rhinocort Allergy] 2 spray INTRANASAL DAILY 04/05/19 04/09/19 History cefdinir 300 mg PO BID #28 cap 04/05/19 04/09/19 Rx cyanocobalamin (vitamin B-12) 1,000 mcg IM .EVERY 2 WEEKS 04/05/19 04/09/19 History olmesartan [Benicar] 20 mg PO QAM 04/09/19 04/09/19 History Past Med/Surg History Medical History Anemia Anxiety disorder Generalized osteoarthritis of multiple sites (Acute) HTN (hypertension) (Acute) Hyperlipidemia (Acute) Impaired fasting glucose Irritable bowel syndrome Knee pain, bilateral Osteopenia Pernicious anemia Vitamin B12 deficiency Vitamin D deficiency Family History Father Congestive heart failure Aunt Breast cancer Atrial fibrillation Social History Preferred Language: [place] Communication Ability: Effective Visual Impairment: No Limitations Hearing Ability: Normal Wagon Driller Required: No Beliefs That Will Affect Care: None marital status: Current Living Situation: Spouse current occupational status: retired Other Information That Helps Us Care for You: No Feels Safe at Home: Yes Safety Concerns: Feels Safe At This Time Smoking Status: Former smoker Do You Dip or Chew Tobacco: No ; Second Hand Exposure: No ; Tobacco Cessation Education Requested by Patient: No Hx Alcohol Use: Yes Alcohol type: wine Alcohol Intake Frequency: Daily Hx Substance Use: No Childhood Exposure to Second-Hand Smoke: Yes Dental Care, Regularly: Yes Physical Activity Frequency: Does not Exercise Seatbelt Use: always Sunscreen Use: Yes Review of Systems Review of Systems: Review of system Constitutional: No fever /positive chills, generalized weakness and fatigue Eyes: no blurring of vision / no eye pain / no discharge / no redness ENT: no hearing loss / no epistaxis /no swallowing problems Respiratory: Mild cough / no wheezing / no SOB / no hemoptysis Cardiovascular: no Chest pain / no lower extremity edema / no palpitation Abdomen: Positive generalized pain and severe diarrhea/ no nausea / no vomiting / no constipation Musculoskeletal: no joint pain / no muscle pain / no joint swelling Genitourinary: no dysuria / no incontinence / no urinary retention Neurologic: no focal weakness / no numbness/tingling / no ataxia Psychiatric: no depression symptoms / no anxiety / no insomnia Endocrine: no excessive thirst / no excessive urination Hematologic: no abnormal bleeding / no bruising / no LN swelling Skin: No rash / no pallor Physical Exam Physical Exam: \\Physical examination General frail elderly female appears to be in moderate acute distress HEENT: Atraumatic , normocephalic /no jaundice /no pallor /anicteric /no dry mucous membrane /normal external ear inspection Neck: Supple /no swelling /central trach Heart: Tachycardia S1/S2 normal/regular rate and rhythm/no gallop /no rub /no murmur Lungs: Clear to auscultation bilaterally/normal chest with expansion/no rhonchi/no rales/no wheezing/no use of accessory muscles of respiration Abdomen: Soft/nontender/no guarding/no rebound/no organomegaly/no pulsatile mass Musculoskeletal: No swelling/no edema/no tenderness/normal range of motion Neuro exam: Awake alert oriented 3/cranial nerves II through XII appear to be intact/sensation intact/moves all extremities/no abnormal movements Psychiatric evaluation: No depressed mood/normal affect Skin: No rash on exposed skin area/no erythema Extremity: Normal pulse/no pitting edema/no clubbing or cyanosis Endocrine/lymphatic: No obvious lymphadenopathy /no lymphedema Results & Data Vital Signs (Past 12 Hours) Vital Signs Temp Pulse Pulse Resp BP BP Pulse Ox 04/09/19 19:19 36.6 C 120 H 18 164/105 H 96 04/09/19 17:49 90 18 178/91 H 95 04/09/19 15:31 99 H 21 04/09/19 15:30 95 H 24 164/122 H 04/09/19 15:20 113 H 26 H 04/09/19 15:01 103 H 20 95 04/09/19 15:00 101 H 18 181/113 H 98 04/09/19 14:50 101 H 18 98 04/09/19 14:40 100 H 19 98 04/09/19 14:33 100 H 20 179/89 H 99 04/09/19 14:31 103 H 18 04/09/19 14:10 90 29 H 97 04/09/19 14:01 95 H 19 97 04/09/19 14:00 95 H 17 183/113 H 97 04/09/19 13:50 89 20 97 04/09/19 13:40 98 H 17 97 04/09/19 13:31 101 H 21 97 04/09/19 13:30 101 H 18 185/112 H 97 04/09/19 13:20 97 H 18 98 04/09/19 13:10 98 H 19 97 04/09/19 13:04 108 H 22 202/130 H 96 04/09/19 13:02 120 H 23 04/09/19 12:50 96 H 18 98 04/09/19 12:40 94 H 17 98 04/09/19 12:31 90 19 98 04/09/19 12:30 92 H 18 189/105 H 100 04/09/19 12:21 96 H 20 181/94 H 96 04/09/19 12:20 92 H 16 98 04/09/19 12:10 94 H 24 93 04/09/19 12:00 181/94 H 04/09/19 11:50 102 H 16 98 04/09/19 11:40 87 20 97 04/09/19 11:31 98 H 21 97 04/09/19 11:30 101 H 19 168/101 H 98 04/09/19 11:20 92 H 23 98 04/09/19 11:10 36.7 C 97 H 19 198/110 H 98 04/09/19 11:01 96 H 22 97 04/09/19 11:00 99 H 21 190/106 H 98 04/09/19 10:59 96 H 24 98 04/09/19 10:57 101 H 24 198/110 H Code Status & VTE Plan VTE Prophylaxis Plan VTE Prophylaxis will be ordered: Yes PG Care Time/CCT Total # of Minutes Spent Total Time Spent with Patient: 35 minutes total time spent is greater than 50% in coordination of care (as documented) at patient's floor/unit and/or counseling patient/family discussion of care with nursing staff (1) Pneumonia Laterality: unspecified laterality Lung location: lower lobe of lung Pneumonia type: due to unspecified organism Qualified Code(s): J18.9 - Pneumonia, unspecified organism (2) HTN (hypertension) Hypertension type: essential hypertension Qualified Code(s): I10 - Essential (primary) hypertension
[2019-04-09] MEDS: METOPROLOL TARTRATE 25 MG TAB PO SCH (21:05)
[2019-04-10] MEDS: RASPBERRY SYRUP 5 ML UDP PO SCH (00:15)
[2019-04-10] MEDS: VANCOMYCIN HCL 250 MG/5 ML SOLN PO SCH (00:15)
[2019-04-10] MEDS ORDERED: HydrALAZINE HCL 20 MG/ML VIAL IV PRN (04:10)
[2019-04-10 06:05] LABS: Hematocrit (blood only) 35.3 % (37-47); Hemoglobin 12.5 g/dL (12.0-16.0); Mean Corpuscular Hemoglobin 32.6 pg (25-34); Mean Corpuscular Hgb Conc 35.4 g/dL (32-36); Mean Corpuscular Volume 91.9 fL (80-100); Mean Platelet Volume 9.6 fL (7.4-10.4); Platelet Count 357 K/uL (130-400); RDW Coefficient of Variation 11.9 % (11.5-14.5); RDW Standard Deviation 40.3 fL (36.4-46.3); Red Blood Count 3.84 M/uL (4.2-5.4); White Blood Count 5.72 K/uL (4.8-10.8)
[2019-04-10 06:40] LABS: Albumin Globulin Ratio 1.1 (0.9-2); Albumin Level 3.6 gm/dl (3.4-5.0); BUN Creatinine Ratio 19.6 (10-20); Bilirubin,Total 0.6 mg/dl (0.2-1); Calcium 8.8 mg/dl (8.5-10.1); Creatinine Clr Calc Pharmacy 39.3 ml/min; Est GFR (African American) 95.3; Est GFR (Non-African American) 82.3; Globulin 3.2 gm/dl (2.5-4.0); Magnesium 1.8 mg/dl (1.8-2.4); Potassium 3.6 mmol/L (3.5-5.1); Total Protein 6.8 gm/dl (6.4-8.2)
[2019-04-10] MEDS: OLMESARTAN MEDOXOMIL 20 MG TAB PO SCH (08:24)
[2019-04-10] MEDS: METOPROLOL TARTRATE 25 MG TAB PO SCH ×2 (08:25→21:25)
[2019-04-10] MEDS: HEPARIN SOD 5,000 UNIT/0.5 ML VIAL SQ SCH ×2 (08:25→22:21)
[2019-04-10] MEDS: LACTOBACILLUS ACIDOPHILUS 1 GM PACK PO SCH ×3 (08:25→17:39)
[2019-04-10] MEDS: ASPIRIN 81 MG ECTAB PO SCH (08:26)
[2019-04-10] MEDS: BUDESONIDE AQ (RHINOCORT AQ) NASAL SPRAY 32 MCG SCH (08:26)
[2019-04-10] MEDS: SODIUM CHLORIDE 1 GM TABLET PO SCH (08:31)
[2019-04-10] MEDS: SODIUM CHLORIDE 0.9% 1000ML 1,000 ML IV SCH ×2 (12:28→23:32)
--- NOTE | 2019-04-10 14:26 | Hospitalist Progress Note ---
Date of Service April 10, 2019 Assessment & Plan (1) Diarrhea associated with pseudomembranous colitis: C diff negative, will stop Vanco PO use Imodium, probiotics she says she gets diarrhea with antibiotic use increase IV fluids to 100cc/hr since she is not drinking enough (2) Pneumonia: was on cefdinir with improvement in her cough as per patient complete two more days of Rocephin WBC normal, no fever, lungs clear on exam (3) Acute hyponatremia: Hypovolemic hyponatremia continue NSS at 100cc/hr added sodium chloride 1gm daily Na up to 127, repeat in the AM (4) Vitamin B12 deficiency: On B12 injections every 2 weeks last was 3 days ago (5) HTN (hypertension): Continue Benicar and metoprolol 25 mg p.o. twice daily Subjective patient admits to feeling a little better, still with cough and some loose stools stools are slowing down, less volume discussed with her that C diff testing was negative she denies abdominal pain, vomiting, blood in stools her appetite is not great but she is trying to eat more cough is less productive, feels like she is breathing easier reviewed labs, Na up to 127, Cr and BUN stable, CBC stable HR 90-100s on monitor, sinus, will downgrade to medical floor Review of Systems Review of Systems: All systems reviewed & are unremarkable except as noted in HPI & below Constitutional: + fatigue and + weakness; no fever Respiratory: + cough and + dyspnea on exertion; no dyspnea and no wheezing Cardiovascular: no chest pain Gastrointestinal: + diarrhea/loose stools; no abdominal pain, no nausea, no vomiting, no constipation and no blood in stools Physical Exam Constitutional: WD/WN, vitals as above + thin Eyes: PERRL, conjunctivae normal, anicteric sclerae ENMT: external ear and nose normal, oropharynx normal Neck: trachea midline, no thyromegaly Respiratory: normal respiratory effort, lungs clear to auscultation Cardiovascular: Rate/Rhythm: regular rhythm and + tachycardic Heart Sounds: normal S1 and normal S2; no murmur Vessels: no JVD Extremities: normal capillary refill; no edema Gastrointestinal (Abdomen): Inspection/Auscultation: abdomen normal to inspection and normal bowel sounds; abdomen not distended Percussion/Palpation: abdomen soft; abdomen nontender, no guarding, abdomen not rigid, no hepatosplenomegaly and no ascites Musculoskeletal: no cyanosis or clubbing, extremities motor strength 5/5 Skin: no rashes, warm and dry Neurologic: patellar DTR's 2+ bilat, sensation intact and PERRL, EOMI, accommodation nl, no face palsy, no dysarthria Psychiatric: A+Ox3, euthymic affect Lymphatic: no cervical or axillary lymphadenopathy Results & Data Vital Signs (Past 12 Hours) Vital Signs Temp Pulse Pulse Resp BP Pulse Ox 04/10/19 11:03 37.0 C 93 H 18 148/80 H 96 04/10/19 07:08 36.9 C 104 H 17 161/80 H 97 04/10/19 05:45 152/83 H 04/10/19 04:08 75 190/92 H 04/10/19 03:57 36.5 C 86 19 181/95 H 96 Laboratory Results Laboratory Results - last 24 hr 04/09/19 04/10/19 04/10/19 18:17 05:51 05:51 WBC 5.72 RBC 3.84 L Hgb 12.5 Hct 35.3 L MCV 91.9 MCH 32.6 MCHC 35.4 RDW Std Deviation 40.3 RDW Coeff of Ramone 11.9 Plt Count 357 MPV 9.6 Sodium 127 L Potassium 3.6 Chloride 94 L Carbon Dioxide 19 L Anion Gap 14.0 H BUN 13 Creatinine 0.66 Est Cr Clr Drug Dosing 39.3 Est GFR ( Amer) 95.3 Est GFR (Non-Af Amer) 82.3 BUN/Creatinine Ratio 19.6 Glucose 77 Calcium 8.8 Magnesium 1.8 Total Bilirubin 0.6 AST 25 ALT 30 Alkaline Phosphatase 71 Total Protein 6.8 Albumin 3.6 Globulin 3.2 Albumin/Globulin Ratio 1.1 Stl C. diff Tox B Gene Negative Cdiff Gene Medications Administered Current Inpatient Medications Acetaminophen (Tylenol) 325 mg PO Q6H PRN PRN Reason: pain/fever Stop: 05/07/19 16:58 Last Admin: 04/10/19 04:45 Dose: 325 mg Documented by: Al Hydrox/Mg Hydrox/Simethicone (Maalox) 15 ml PO Q4H PRN PRN Reason: Dyspepsia Stop: 05/09/19 17:01 Albuterol (Ventolin Hfa) 1 puffs INH Q6H PRN PRN Reason: shortness of breath or wheezing Stop: 05/09/19 16:58 Amitriptyline HCl (Elavil) 50 mg PO HS [facility] Stop: 05/09/19 20:59 Last Admin: 04/09/19 20:17 Dose: 50 mg Documented by: Aspirin (Ecotrin Ectab) 81 mg PO QAM [facility] Stop: 05/10/19 08:59 Last Admin: 04/10/19 08:26 Dose: 81 mg Documented by: Benzonatate (Tessalon Perle) 100 mg PO TID PRN PRN Reason: cough Stop: 05/09/19 16:58 Budesonide (Rhinocort Aq) 2 sprays NA DAILY [facility] Stop: 05/10/19 08:59 Last Admin: 04/10/19 08:26 Dose: 2 sprays Documented by: Diazepam (Valium) 10 mg PO AC PRN PRN Reason: muscle spasm Stop: 05/09/19 16:58 Diphenhydramine HCl (Benadryl Capsule) 25 mg PO DAILY PRN PRN Reason: PRN Stop: 05/09/19 16:58 Heparin Sodium (Porcine) (Heparin Sodium (Porcine)) 5,000 units SQ Q12 [facility] Stop: 05/09/19 20:59 Last Admin: 04/10/19 08:25 Dose: 5,000 units Documented by: Hydralazine HCl (Hydralazine Hcl) 10 mg IV Q4H PRN PRN Reason: Hypertension Stop: 05/10/19 04:09 Last Admin: 04/10/19 04:41 Dose: 10 mg Documented by: Sodium Chloride (Nss 1000ml) 1,000 mls @ 100 mls/hr IV .Q10H [facility] Stop: 05/09/19 19:29 Last Admin: 04/10/19 12:28 Dose: 60 mls/hr Documented by: Ceftriaxone Sodium 1,000 mg/ (Dextrose) 60 mls @ 100 mls/hr IV Q24H [facility]; Protocol Stop: 04/11/19 19:59 Last Infusion: 04/09/19 20:58 Dose: Infused Documented by: Lactobacillus Acidophilus (Floranex Granules/Powder Packet) 1 gm PO TIDM [facility] Stop: 05/10/19 07:59 Last Admin: 04/10/19 12:28 Dose: 1 gm Documented by: Magnesium Hydroxide (Milk Of Magnesia) 30 ml PO Q12H PRN PRN Reason: Constipation Stop: 05/09/19 17:01 Metoprolol Tartrate (Lopressor) 25 mg PO BID [facility] Stop: 05/09/19 20:59 Last Admin: 04/10/19 08:25 Dose: 25 mg Documented by: Olmesartan (Benicar) 20 mg PO QAM [facility] Stop: 05/10/19 08:59 Last Admin: 04/10/19 08:24 Dose: 20 mg Documented by: Sodium Chloride (Sodium Chloride) 1 gm PO DAILY [facility] Stop: 05/10/19 08:59 Last Admin: 04/10/19 08:31 Dose: 1 gm Documented by: Zolpidem Tartrate (Ambien) 5 mg PO HS PRN PRN Reason: Sleep Stop: 05/09/19 17:01 PG Care Time/CCT Total # of Minutes Spent Total Time Spent with Patient: Total time spent is greater than 50% in coordination of care (as documented) at patient's floor/unit and/or counseling patient: (1) Pneumonia Laterality: unspecified laterality Lung location: lower lobe of lung Pneumonia type: due to unspecified organism Qualified Code(s): J18.9 - Pneumonia, unspecified organism (2) HTN (hypertension) Hypertension type: essential hypertension Qualified Code(s): I10 - Essential (primary) hypertension
[2019-04-10] MEDS ORDERED: LIDOCAINE/EPINE 2% 1:100,000 20ML INFIL ONE (16:44)
[2019-04-10] MEDS ORDERED: ACETAMINOPHEN 500 MG TAB PO ONE (17:22)
[2019-04-10] MEDS: ACETAMINOPHEN 325 MG TAB PO PRN (17:39)
--- NOTE | 2019-04-10 19:18 | Hospitalist Progress Note ---
Date of Service April 10, 2019 Subjective procedure note: contacted by dr camarillo in regards to repair of laceration above L eye. Dr Mccullough and myself inspected laceration - above L eye approx 2cm long, easily approximates; discussed risks/benefits of closure, offered consult for plastic surgery if desired since facial laceration, discussed scarring risks/spectrum of scarring/probabilities - pt consents to have Dr Mccullough repair laceration with my supervision -Dr Mccullough performed the procedure, I was present in the room the entire time until suturing complete -area cleaned with sterile irrigation -anesthesia achieved with approx 2cc total lidocaine with epi -wound approximated with 4 simple interrupted sutures of 5.0 vicryl -wound cleaned again, appeared well approximated -pt tolerated well Results & Data Vital Signs (Past 12 Hours) Vital Signs Temp Pulse Resp BP Pulse Ox 04/10/19 15:46 98.8 F 101 H 20 175/99 H 92 04/10/19 15:42 98.6 F 99 H 16 151/73 H 99 04/10/19 11:03 98.6 F 93 H 18 148/80 H 96 PG Care Time/CCT Total # of Minutes Spent Total Time Spent with Patient: Total time spent is greater than 50% in coordination of care (as documented) at patient's floor/unit and/or counseling patient:
[2019-04-10] MEDS: AMITRIPTYLINE HCL 25 MG TAB PO SCH (21:25)
[2019-04-10] MEDS: cefTRIAXone SODIUM 1,000 MG in DEXTROSE 5% 50 ML IV SCH (21:25)
[2019-04-10] MEDS: ALUMINUM/MAGNESIUM SUSP 30 ML UDC PO PRN (21:25)
[2019-04-10] MEDS: ZOLPIDEM TARTRATE 5 MG TAB PO PRN (23:32)
[2019-04-11 06:08] LABS: Hematocrit (blood only) 33.8 % (37-47); Mean Corpuscular Hemoglobin 32.7 pg (25-34); Mean Corpuscular Hgb Conc 35.5 g/dL (32-36); Mean Corpuscular Volume 92.1 fL (80-100); Mean Platelet Volume 9.5 fL (7.4-10.4); Platelet Count 325 K/uL (130-400); RDW Coefficient of Variation 11.9 % (11.5-14.5); RDW Standard Deviation 40.5 fL (36.4-46.3); Red Blood Count 3.67 M/uL (4.2-5.4); White Blood Count 6.79 K/uL (4.8-10.8)
[2019-04-11 06:40] LABS: BUN Creatinine Ratio 11.9 (10-20); Calcium 8.4 mg/dl (8.5-10.1); Creatinine Clr Calc Pharmacy 45.5 ml/min; Est GFR (African American) 100.1; Est GFR (Non-African American) 86.3; Potassium 3.5 mmol/L (3.5-5.1)
[2019-04-11] MEDS: ALUMINUM/MAGNESIUM SUSP 30 ML UDC PO PRN ×2 (08:19→15:33)
[2019-04-11] MEDS: METOPROLOL TARTRATE 25 MG TAB PO SCH ×2 (08:59→21:34)
[2019-04-11] MEDS: ASPIRIN 81 MG ECTAB PO SCH (08:59)
[2019-04-11] MEDS: SODIUM CHLORIDE 1 GM TABLET PO SCH (08:59)
[2019-04-11] MEDS: OLMESARTAN MEDOXOMIL 20 MG TAB PO SCH (09:00)
[2019-04-11] MEDS: BUDESONIDE AQ (RHINOCORT AQ) NASAL SPRAY 32 MCG SCH (09:00)
[2019-04-11] MEDS: LACTOBACILLUS ACIDOPHILUS 1 GM PACK PO SCH ×3 (09:00→17:06)
[2019-04-11] MEDS: HEPARIN SOD 5,000 UNIT/0.5 ML VIAL SQ SCH ×2 (09:01→21:34)
[2019-04-11] MEDS: SODIUM CHLORIDE 0.9% 1000ML 1,000 ML IV SCH (10:08)
--- NOTE | 2019-04-11 16:25 | Hospitalist Progress Note ---
Date of Service April 11, 2019 Assessment & Plan (1) Diarrhea associated with pseudomembranous colitis: C diff negative, will stop Vanco PO use Imodium, probiotics she says she gets diarrhea with antibiotic use stop fluids today as she is drinking more (2) Pneumonia: was on cefdinir with improvement in her cough as per patient complete one more dose of Rocephin this evening WBC normal, no fever, lungs clear on exam CXR on admission already showed some improvement in the infiltrate in left base (3) Acute hyponatremia: Hypovolemic hyponatremia stop fluids today continue sodium chloride 1gm daily Na up to 129, repeat in the AM (4) Vitamin B12 deficiency: On B12 injections every 2 weeks last was 4 days ago (5) HTN (hypertension): Continue Benicar and metoprolol 25 mg p.o. twice daily (6) Fall: patient lost her balance evening of 04/10, suffered laceration above left eye will consult PT/OT to evaluate her strength fall precautions (7) Laceration: sutured by resident on 04/10, well approximated, 4 sutures placed can be removed by PCP in 7-10 days Subjective patient feeling well this AM sutures placed in laceration over left eye, wound is well approximated some bruising over left eye this morning patient is trying to eat more, drinking a lot of water scant amount of diarrhea, no abdominal pain no cough, no dyspnea long discussed with her and her about plans for therapy, likely home on Tuesday if strong enough labs show Cr is stable, Na up to 129, can stop fluids today Review of Systems Review of Systems: All systems reviewed & are unremarkable except as noted in HPI & below Respiratory: no cough and no dyspnea Cardiovascular: no chest pain Gastrointestinal: + diarrhea/loose stools; no abdominal pain, no nausea, no vomiting and no constipation Physical Exam Constitutional: WD/WN, vitals as above + thin Eyes: PERRL, conjunctivae normal, anicteric sclerae (bruising around left eye) ENMT: external ear and nose normal, oropharynx normal Neck: trachea midline, no thyromegaly Respiratory: normal respiratory effort, lungs clear to auscultation Cardiovascular: Rate/Rhythm: regular rhythm and + tachycardic Heart Sounds: normal S1 and normal S2; no murmur Vessels: no JVD Extremities: normal capillary refill; no edema Gastrointestinal (Abdomen): Inspection/Auscultation: abdomen normal to inspection and normal bowel sounds; abdomen not distended Percussion/P alpation: abdomen soft; abdomen nontender, no guarding, abdomen not rigid, no hepatosplenomegaly and no ascites Musculoskeletal: no cyanosis or clubbing, extremities motor strength 5/5 Skin: no rashes, warm and dry + wound (laceration above left eye, well approximated with 4 sutures) Neurologic: patellar DTR's 2+ bilat, sensation intact and PERRL, EOMI, accommodation nl, no face palsy, no dysarthria Psychiatric: A+Ox3, euthymic affect Lymphatic: no cervical or axillary lymphadenopathy Results & Data Vital Signs (Past 12 Hours) Vital Signs Temp Pulse Resp BP Pulse Ox 04/11/19 07:07 37.0 C 82 18 171/81 H 96 Laboratory Results Laboratory Results - last 24 hr 04/11/19 04/11/19 05:51 05:51 WBC 6.79 RBC 3.67 L Hgb 12.0 Hct 33.8 L MCV 92.1 MCH 32.7 MCHC 35.5 RDW Std Deviation 40.5 RDW Coeff of Ramone 11.9 Plt Count 325 MPV 9.5 Sodium 129 L Potassium 3.5 Chloride 94 L Carbon Dioxide 26 Anion Gap 9.0 BUN 7 D Creatinine 0.57 L Est Cr Clr Drug Dosing 45.5 Est GFR ( Amer) 100.1 Est GFR (Non-Af Amer) 86.3 BUN/Creatinine Ratio 11.9 Glucose 82 Calcium 8.4 L Medications Administered Current Inpatient Medications Acetaminophen (Tylenol) 650 mg PO Q4H PRN PRN Reason: Pain Stop: 05/10/19 17:20 Al Hydrox/Mg Hydrox/Simethicone (Maalox) 15 ml PO Q4H PRN PRN Reason: Dyspepsia Stop: 05/09/19 17:01 Last Admin: 04/11/19 15:33 Dose: 15 ml Documented by: Albuterol (Ventolin Hfa) 1 puffs INH Q6H PRN PRN Reason: shortness of breath or wheezing Stop: 05/09/19 16:58 Amitriptyline HCl (Elavil) 50 mg PO HS [facility] Stop: 05/09/19 20:59 Last Admin: 04/10/19 21:25 Dose: 50 mg Documented by: Aspirin (Ecotrin Ectab) 81 mg PO QAM [facility] Stop: 05/10/19 08:59 Last Admin: 04/11/19 08:59 Dose: 81 mg Documented by: Benzonatate (Tessalon Perle) 100 mg PO TID PRN PRN Reason: cough Stop: 05/09/19 16:58 Budesonide (Rhinocort Aq) 2 sprays NA DAILY [facility] Stop: 05/10/19 08:59 Last Admin: 04/11/19 09:00 Dose: 2 sprays Documented by: Diazepam (Valium) 10 mg PO AC PRN PRN Reason: muscle spasm Stop: 05/09/19 16:58 Diphenhydramine HCl (Benadryl Capsule) 25 mg PO DAILY PRN PRN Reason: PRN Stop: 05/09/19 16:58 Last Admin: 04/10/19 22:01 Dose: 25 mg Documented by: Heparin Sodium (Porcine) (Heparin Sodium (Porcine)) 5,000 units SQ Q12 [facility] Stop: 05/09/19 20:59 Last Admin: 04/11/19 09:01 Dose: 5,000 units Documented by: Hydralazine HCl (Hydralazine Hcl) 10 mg IV Q4H PRN PRN Reason: Hypertension Stop: 05/10/19 04:09 Last Admin: 04/10/19 04:41 Dose: 10 mg Documented by: Ceftriaxone Sodium 1,000 mg/ (Dextrose) 60 mls @ 100 mls/hr IV Q24H [facility]; Protocol Stop: 04/11/19 19:59 Last Infusion: 04/10/19 22:03 Dose: Infused Documented by: Lactobacillus Acidophilus (Floranex Granules/Powder Packet) 1 gm PO TIDM [facility] Stop: 05/10/19 07:59 Last Admin: 04/11/19 13:20 Dose: 1 gm Documented by: Magnesium Hydroxide (Milk Of Magnesia) 30 ml PO Q12H PRN PRN Reason: Constipation Stop: 05/09/19 17:01 Metoprolol Tartrate (Lopressor) 25 mg PO BID [facility] Stop: 05/09/19 20:59 Last Admin: 04/11/19 08:59 Dose: 25 mg Documented by: Olmesartan (Benicar) 20 mg PO QAM [facility] Stop: 05/10/19 08:59 Last Admin: 04/11/19 09:00 Dose: 20 mg Documented by: Sodium Chloride (Sodium Chloride) 1 gm PO DAILY [facility] Stop: 05/10/19 08:59 Last Admin: 04/11/19 08:59 Dose: 1 gm Documented by: Zolpidem Tartrate (Ambien) 5 mg PO HS PRN PRN Reason: Sleep Stop: 05/09/19 17:01 Last Admin: 04/10/19 23:32 Dose: 5 mg Documented by: PG Care Time/CCT Total # of Minutes Spent Total Time Spent with Patient: Total time spent is greater than 50% in coordination of care (as documented) at patient's floor/unit and/or counseling patient: (1) HTN (hypertension) Hypertension type: essential hypertension Qualified Code(s): I10 - Essential (primary) hypertension (2) Pneumonia Laterality: unspecified laterality Lung location: lower lobe of lung Pneumonia type: due to unspecified organism Qualified Code(s): J18.9 - Pneumonia, unspecified organism
[2019-04-11] MEDS: AMITRIPTYLINE HCL 25 MG TAB PO SCH (21:34)
[2019-04-11] MEDS: ZOLPIDEM TARTRATE 5 MG TAB PO PRN (23:16)
[2019-04-12 06:38] LABS: BUN Creatinine Ratio 9.1 (10-20); Calcium 8.5 mg/dl (8.5-10.1); Creatinine Clr Calc Pharmacy 49.9 ml/min; Est GFR (African American) 103.1; Potassium 2.8 mmol/L (3.5-5.1)
--- NOTE | 2019-04-12 08:12 | Hospitalist Progress Note ---
Date of Service April 12, 2019 Assessment & Plan (1) Diarrhea associated with pseudomembranous colitis: C diff negative, will stop Vanco PO use Imodium, probiotics she says she gets diarrhea with antibiotic use continues to have liquid stools but less frequent will check a stool culture as there has been an outbreak of Salmonella locally (2) Pneumonia: was on cefdinir with improvement in her cough as per patient completed total of 7 days of antibiotics, 4 days of Cefdinir outpatient and 3 days of Rocephin while here WBC normal, no fever, lungs clear on exam CXR on admission already showed some improvement in the infiltrate in left base (3) Acute hyponatremia: Hypovolemic hyponatremia initially on fluids, stopped morning of 04/11 continue sodium chloride 1gm daily Na up to 130, repeat in the AM (4) Hypokalemia: low at 2.8 today, due to GI losses most likely added PO replacement today, repeat BMP in the AM (5) Vitamin B12 deficiency: On B12 injections every 2 weeks last was 5 days ago (6) HTN (hypertension): Continue Benicar and metoprolol 25 mg p.o. twice daily (7) Fall: patient lost her balance evening of 04/10, suffered laceration above left eye will consult PT/OT to evaluate her strength fall precautions will either go home with home health or will need rehab (8) Laceration: sutured by resident on 04/10, well approximated, 4 sutures placed can be removed by PCP in 7-10 days Subjective patient is doing better today, says she feels stronger she is looking forward to eating her breakfast no abdominal pain, no nausea, she did have a small loose BM around 430am reviewed labs, Na up to 130, K low at 2.8 no dyspnea, no cough, no chest pain, no fever/chills, no blood seen in stools discussed that we can try some imodium for the stools, will check a stool culture if she has another stool today encouraged her to do her best with PT/OT evaluations today again, stated that our plan was to go home tomorrow as long as she was strong enough with therapy Review of Systems Review of Systems: All systems reviewed & are unremarkable except as noted in HPI & below Gastrointestinal: + diarrhea/loose stools; no abdominal pain, no nausea, no vomiting, no constipation and no blood in stools Physical Exam Constitutional: WD/WN, vitals as above + thin Eyes: PERRL, conjunctivae normal, anicteric sclerae (bruising around left eye) ENMT: external ear and nose normal, oropharynx normal Neck: trachea midline, no thyromegaly Respiratory: normal respiratory effort, lungs clear to auscultation Cardiovascular: Rate/Rhythm: regular rhythm and + tachycardic Heart Sounds: normal S1 and normal S2; no murmur Vessels: no JVD Extremities: normal capillary refill; no edema Gastrointestinal (Abdomen): Inspection/Auscultation: abdomen normal to inspection and normal bowel sounds; abdomen not distended Percussion/Palpation: abdomen soft; abdomen nontender, no guarding, abdomen not rigid, no hepatosplenomegaly and no ascites Musculoskeletal: no cyanosis or clubbing, extremities motor strength 5/5 Skin: no rashes, warm and dry + wound (laceration above left eye, well approximated with 4 sutures) Neurologic: patellar DTR's 2+ bilat, sensation intact and PERRL, EOMI, accommodation nl, no face palsy, no dysarthria Psychiatric: A+Ox3, euthymic affect Lymphatic: no cervical or axillary lymphadenopathy Results & Data Vital Signs (Past 12 Hours) Vital Signs Temp Pulse Resp BP Pulse Ox 04/12/19 07:33 37 C 67 20 140/73 96 04/11/19 23:00 36.8 C 70 18 154/80 H 98 Laboratory Results Laboratory Results - last 24 hr 04/12/19 04:45 Sodium 130 L Potassium 2.8 L D Chloride 94 L Carbon Dioxide 27 Anion Gap 9.0 BUN 5 L Creatinine 0.52 L Est Cr Clr Drug Dosing 49.9 Est GFR ( Amer) 103.1 Est GFR (Non-Af Amer) 89.0 BUN/Creatinine Ratio 9.1 L Glucose 89 Calcium 8.5 Medications Administered Current Inpatient Medications Acetaminophen (Tylenol) 650 mg PO Q4H PRN PRN Reason: Pain Stop: 05/10/19 17:20 Al Hydrox/Mg Hydrox/Simethicone (Maalox) 15 ml PO Q4H PRN PRN Reason: Dyspepsia Stop: 05/09/19 17:01 Last Admin: 04/11/19 15:33 Dose: 15 ml Documented by: Albuterol (Ventolin Hfa) 1 puffs INH Q6H PRN PRN Reason: shortness of breath or wheezing Stop: 05/09/19 16:58 Amitriptyline HCl (Elavil) 50 mg PO HS [facility] Stop: 05/09/19 20:59 Last Admin: 04/11/19 21:34 Dose: 50 mg Documented by: Aspirin (Ecotrin Ectab) 81 mg PO QAM [facility] Stop: 05/10/19 08:59 Last Admin: 04/11/19 08:59 Dose: 81 mg Documented by: Benzonatate (Tessalon Perle) 100 mg PO TID PRN PRN Reason: cough Stop: 05/09/19 16:58 Budesonide (Rhinocort Aq) 2 sprays NA DAILY [facility] Stop: 05/10/19 08:59 Last Admin: 04/11/19 09:00 Dose: 2 sprays Documented by: Diazepam (Valium) 10 mg PO AC PRN PRN Reason: muscle spasm Stop: 05/09/19 16:58 Diphenhydramine HCl (Benadryl Capsule) 25 mg PO DAILY PRN PRN Reason: PRN Stop: 05/09/19 16:58 Last Admin: 04/11/19 21:34 Dose: 25 mg Documented by: Heparin Sodium (Porcine) (Heparin Sodium (Porcine)) 5,000 units SQ Q12 [facility] Stop: 05/09/19 20:59 Last Admin: 04/11/19 21:34 Dose: 5,000 units Documented by: Hydralazine HCl (Hydralazine Hcl) 10 mg IV Q4H PRN PRN Reason: Hypertension Stop: 05/10/19 04:09 Last Admin: 04/10/19 04:41 Dose: 10 mg Documented by: Lactobacillus Acidophilus (Floranex Granules/Powder Packet) 1 gm PO TIDM [facility] Stop: 05/10/19 07:59 Last Admin: 04/11/19 17:06 Dose: 1 gm Documented by: Loperamide HCl (Imodium) 2 mg PO Q6 PRN PRN Reason: Diarrhea Stop: 05/12/19 08:04 Magnesium Hydroxide (Milk Of Magnesia) 30 ml PO Q12H PRN PRN Reason: Constipation Stop: 05/09/19 17:01 Metoprolol Tartrate (Lopressor) 25 mg PO BID [facility] Stop: 05/09/19 20:59 Last Admin: 04/11/19 21:34 Dose: 25 mg Documented by: Olmesartan (Benicar) 20 mg PO QAM [facility] Stop: 05/10/19 08:59 Last Admin: 04/11/19 09:00 Dose: 20 mg Documented by: Potassium Chloride (Klor-Con M20) 20 meq PO TID [facility] Stop: 05/12/19 08:59 Sodium Chloride (Sodium Chloride) 1 gm PO DAILY [facility] Stop: 05/10/19 08:59 Last Admin: 04/11/19 08:59 Dose: 1 gm Documented by: Zolpidem Tartrate (Ambien) 5 mg PO HS PRN PRN Reason: Sleep Stop: 05/09/19 17:01 Last Admin: 04/11/19 23:16 Dose: 5 mg Documented by: PG Care Time/CCT Total # of Minutes Spent Total Time Spent with Patient: Total time spent is greater than 50% in coordination of care (as documented) at patient's floor/unit and/or counseling patient: (1) Pneumonia Laterality: unspecified laterality Lung location: lower lobe of lung Pneumonia type: due to unspecified organism Qualified Code(s): J18.9 - Pneumonia, unspecified organism (2) HTN (hypertension) Hypertension type: essential hypertension Qualified Code(s): I10 - Essential (primary) hypertension
[2019-04-12] MEDS: LACTOBACILLUS ACIDOPHILUS 1 GM PACK PO SCH ×3 (08:21→16:22)
[2019-04-12] MEDS: LOPERAMIDE HCL 2 MG CAP PO PRN ×3 (08:23→21:42)
[2019-04-12] MEDS: METOPROLOL TARTRATE 25 MG TAB PO SCH ×2 (08:24→20:17)
[2019-04-12] MEDS: ASPIRIN 81 MG ECTAB PO SCH (08:24)
[2019-04-12] MEDS: OLMESARTAN MEDOXOMIL 20 MG TAB PO SCH (08:24)
[2019-04-12] MEDS: BUDESONIDE AQ (RHINOCORT AQ) NASAL SPRAY 32 MCG SCH (08:24)
[2019-04-12] MEDS: SODIUM CHLORIDE 1 GM TABLET PO SCH (08:24)
[2019-04-12] MEDS: ALUMINUM/MAGNESIUM SUSP 30 ML UDC PO PRN ×2 (09:23→18:42)
[2019-04-12] MEDS: POTASSIUM CHLORIDE 20 MEQ TABCR PO SCH ×2 (09:23→09:59)
[2019-04-12] MEDS: HEPARIN SOD 5,000 UNIT/0.5 ML VIAL SQ SCH ×2 (09:46→20:19)
[2019-04-12] MEDS ORDERED: Nursing to Pharmacy Communication ONE (09:56)
[2019-04-12] MEDS: POTASSIUM CHLORIDE 20 MEQ/15 ML UDC PO SCH ×2 (14:43→20:18)
[2019-04-12] MEDS: ACETAMINOPHEN 325 MG TAB PO PRN (20:16)
[2019-04-12] MEDS: AMITRIPTYLINE HCL 25 MG TAB PO SCH (20:17)
[2019-04-12] MEDS: ZOLPIDEM TARTRATE 5 MG TAB PO PRN (20:17)
[2019-04-13 06:50] LABS: Basophils # (auto) 0.02 K/uL (0-0.2); Basophils % (auto) 0.5 %; Eosinophils # (auto) 0.07 K/uL (0-0.5); Eosinophils % (auto) 1.8 %; Hematocrit (blood only) 29.1 % (37-47); Hemoglobin 10.7 g/dL (12.0-16.0); Immature Granulocytes # (auto) 0.01 K/uL (0.00-0.02); Immature Granulocytes % (auto) 0.3 %; Lymphocytes % (auto) 25.1 %; Mean Corpuscular Hemoglobin 33.9 pg (25-34); Mean Corpuscular Hgb Conc 36.8 g/dL (32-36); Mean Corpuscular Volume 92.1 fL (80-100); Mean Platelet Volume 9.9 fL (7.4-10.4); Monocytes # (auto) 0.59 K/uL (0.11-0.59); Monocytes % (auto) 14.8 %; Neutrophils # (auto) 2.29 K/uL (1.4-6.5); Neutrophils % (auto) 57.5 %; Platelet Count 289 K/uL (130-400); RDW Coefficient of Variation 11.9 % (11.5-14.5); RDW Standard Deviation 40.3 fL (36.4-46.3); Red Blood Count 3.16 M/uL (4.2-5.4); White Blood Count 3.98 K/uL (4.8-10.8)
[2019-04-13 07:13] LABS: BUN Creatinine Ratio 12.7 (10-20); Calcium 8.6 mg/dl (8.5-10.1); Creatinine Clr Calc Pharmacy 41.9 ml/min; Est GFR (African American) 95.8; Est GFR (Non-African American) 82.7; Potassium 2.9 mmol/L (3.5-5.1)
[2019-04-13] MEDS: LOPERAMIDE HCL 2 MG CAP PO PRN (07:53)
[2019-04-13] MEDS: OLMESARTAN MEDOXOMIL 20 MG TAB PO SCH (08:59)
[2019-04-13] MEDS: METOPROLOL TARTRATE 25 MG TAB PO SCH (08:59)
[2019-04-13] MEDS: ASPIRIN 81 MG ECTAB PO SCH (08:59)
[2019-04-13] MEDS: SODIUM CHLORIDE 1 GM TABLET PO SCH (09:00)
[2019-04-13] MEDS: LACTOBACILLUS ACIDOPHILUS 1 GM PACK PO SCH (09:01)
[2019-04-13] MEDS: POTASSIUM CHLORIDE 20 MEQ/15 ML UDC PO SCH (09:05)
[2019-04-13] MEDS: BUDESONIDE AQ (RHINOCORT AQ) NASAL SPRAY 32 MCG SCH (09:07)
[2019-04-13] MEDS: HEPARIN SOD 5,000 UNIT/0.5 ML VIAL SQ SCH (09:09)
== END 2019-04-13 13:18 | disposition home or self-care (01) | DRG 371 ==
LOC: ED 10:48 → 2E 17:03 → SUATTDRO 17:03 → 2E 17:56 → 4W 04-10 15:53

== ENCOUNTER 2020-01-10 22:34 | Inpatient (IN) ==
[2020-01-10] MEDS ORDERED: SODIUM CHLORIDE 0.9% 1000ML 1,000 ML IV ONE (22:58)
[2020-01-10 23:30] LABS: Basophils # (auto) 0.01 K/uL (0-0.2); Basophils % (auto) 0.2 %; Eosinophils # (auto) 0.04 K/uL (0-0.5); Eosinophils % (auto) 0.7 %; Hematocrit (blood only) 36.8 % (37-47); Hemoglobin 12.9 g/dL (12.0-16.0); Immature Granulocytes # (auto) 0.01 K/uL (0.00-0.02); Immature Granulocytes % (auto) 0.2 %; Lymphocytes # (auto) 0.71 K/uL (1.2-3.4); Lymphocytes % (auto) 12.5 %; Mean Corpuscular Hemoglobin 33.1 pg (25-34); Mean Corpuscular Hgb Conc 35.1 g/dL (32-36); Mean Corpuscular Volume 94.4 fL (80-100); Mean Platelet Volume 9.7 fL (7.4-10.4); Monocytes # (auto) 0.42 K/uL (0.11-0.59); Monocytes % (auto) 7.4 %; Neutrophils # (auto) 4.51 K/uL (1.4-6.5); Platelet Count 311 K/uL (130-400); RDW Coefficient of Variation 12.1 % (11.5-14.5); RDW Standard Deviation 40.8 fL (36.4-46.3)
--- NOTE | 2020-01-10 23:30 | Emergency Department Note ---
History of Present Illness General Chief complaint: Weakness Stated complaint: WEAKNESS Time Seen by Provider: 01/10/20 22:41 Source: patient, family (), EMS, RN notes reviewed and old records reviewed Mode of arrival: EMS Limitations: no limitations History of Present Illness Provider complaint: Weakness Onset (ago): day(s) 2 Location: neck Radiation: extremity Severity: severe Pain Consistency: + intermittent Maximum Pain Intensity: 10 Current Pain Intensity: 10 Quality: + aching Relieved By: + medication (Tramadol) Exacerbated By: + movement Associated symptoms: + cough, + nausea/vomiting, + weakness and + other (diarrhea) Treatments prior to arrival: other (Tramadol) This is an 84-year-old female who presents emergency department complaining of severe weakness that has been ongoing for the past 2 days. The patient was so weak today that she could not get out of bed. Patient has a history of receiving vitamin B12 shots and the family suspects this is the reason she feels weak. She did start a new medication tramadol for neck pain. That is the only medication she has taken today. She has not taken any other medications including her blood pressure medication. She is also on Macrobid for long-term urinary tract infections. Home Medications Home Medications Medication Instructions Recorded Confirmed Type acetaminophen 325 mg capsule 325 mg PO Q6H PRN 10/17/18 01/10/20 History aspirin 81 mg tablet,delayed 81 mg PO QAM tab 10/17/18 01/10/20 History release biotin 5 mg capsule 5 mg PO QAM cap 10/17/18 01/10/20 History multivit with 1 tab PO QAM 03/04/19 01/10/20 History sdioolfd-wsvo-AD-lutein 8 mg iron-400 mcg-300 mcg tablet syringe with needle 3 mL 25 x 5/8" #6 ea 03/05/19 10/16/19 Rx albuterol sulfate [Ventolin HFA] 1 puffs INH Q6H PRN #8 gm 04/05/19 01/10/20 Rx cyanocobalamin (vitamin B-12) 1,000 mcg IM .EVERY 2 WEEKS 04/05/19 01/10/20 History olmesartan 20 mg tablet 20 mg PO QAM #90 tab 08/28/19 01/10/20 Rx amitriptyline 25 mg tablet 50 mg PO HS #180 tab 09/10/19 01/10/20 Rx diphenoxylate-atropine 2.5 2 tab PO QID PRN #180 tab 10/05/19 01/10/20 Rx mg-0.025 mg tablet ergocalciferol (vitamin D2) 1,250 50,000 units PO MONTHLY #3 cap 10/05/19 01/10/20 Rx mcg (50,000 unit) capsule nitrofurantoin macrocrystal 100 mg 200 mg PO .COMPLEX #30 cap 10/23/19 01/10/20 Rx capsule metoprolol tartrate 25 mg tablet 25 mg PO BID 30 Days #60 tab 11/13/19 01/10/20 Rx tramadol 50 mg tablet 50 mg PO Q6H PRN #20 tab 12/11/19 01/10/20 Rx diazepam 5 mg tablet 10 mg PO AC PRN #20 tab 12/19/19 01/10/20 Rx Allergies Allergy/AdvReac Type Severity Reaction Status Date / Time Penicillins Allergy Mild Unknown Verified 01/10/20 23:23 acetaminophen Allergy Unknown Verified 01/10/20 23:23 [From Tylenol-Codeine] aloe vera Allergy Unknown Verified 01/10/20 23:23 amlodipine [From Norvasc] Allergy Unknown Verified 01/10/20 23:23 ciprofloxacin Allergy Anaphylaxis Verified 01/10/20 23:23 codeine Allergy Unknown Verified 01/10/20 23:23 [From Tylenol-Codeine] meloxicam Allergy Unknown Verified 01/10/20 23:23 pseudoephedrine Allergy Unknown Verified 01/10/20 23:23 [From Sudafed] pantoprazole AdvReac Intermediate Gastrointestinal Verified 01/10/20 23:23 Upset Past Med/Surg History Medical History Acute hyponatremia Diarrhea associated with pseudomembranous colitis Fall Generalized osteoarthritis of multiple sites Hyperlipidemia Hypokalemia Hypotension Impaired fasting glucose Irritable bowel syndrome Knee pain, bilateral Osteopenia Pernicious anemia Vasovagal episode Vitamin B12 deficiency Vitamin D deficiency Surgical History H/O breast surgery breast enlargement history Hx of tonsillectomy Family History Father , age 78 of heart issues Congestive heart failure Aunt Breast cancer Atrial fibrillation Lung cancer Denies family history of Ovarian cancer Prostate cancer Colorectal cancer Social History Smoking Status: Former smoker Second Hand Exposure: Yes; Hx Alcohol Use: Yes Alcohol type: wine Hx Substance Use: No Preferred Language: [place] Communication Ability: Effective Visual Impairment: No Limitations Hearing Ability: Normal Audio Visual Aids Director Required: No Beliefs That Will Affect Care: None marital status: Current Living Situation: Spouse current occupational status: retired 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 Feels Safe at Home: Yes Childhood Exposure to Second-Hand Smoke: Yes Dental Care, Regularly: Yes Physical Activity Frequency: Does not Exercise Seatbelt Use: always Sunscreen Use: Yes Review of Systems A total of 10 systems reviewed and were otherwise negative Physical Exam Vital Signs Vital Signs - 24 hr 01/10/20 22:37 01/10/20 22:55 01/10/20 22:57 Temperature 37.1 C Temperature Source Oral Pulse Rate 94 H 98 H Pulse Rate from SpO2 Sensor 93 H Respiratory Rate 20 20 Respiratory Effort / Characteristics Non-Labored Spontaneous Respiratory Depth Normal Respiratory Pattern Regular Blood Pressure 207/112 H 207/112 H Blood Pressure Mean 155 143 Pulse Oximetry 97 98 Oxygen Delivery Method Room Air Room Air Sepsis Recent Fever Within 48 Hours No Sepsis New/Unexplained Change in Mental Status No Sepsis Action Taken by Nursing No Action Required 01/10/20 23:31 01/11/20 00:30 01/11/20 01:01 Temperature Temperature Source Pulse Rate 87 94 H 66 Pulse Rate from SpO2 Sensor 88 95 H 66 Respiratory Rate 19 19 18 Respiratory Effort / Characteristics Respiratory Depth Respiratory Pattern Blood Pressure 170/105 H 180/112 H 155/129 H Blood Pressure Mean 148 129 142 Pulse Oximetry 97 96 96 Oxygen Delivery Method Sepsis Recent Fever Within 48 Hours Sepsis New/Unexplained Change in Mental Status Sepsis Action Taken by Nursing VITAL SIGNS - Vital signs and nursing notes were reviewed. GENERAL - 84-year-old female appearing stated age who is cachectic in appearance. Communicates well with provider and answers questions appropriately. SKIN - Without rashes. HEAD - NC/AT. EYES - PERRL with EOMI bilaterally. Sclera anicteric. Palpebral conjunctiva pink and moist with no injection noted. EARS - No deformities of external structures noted on gross examination bilaterally. No pain elicited with palpation of the tragus bilaterally. External auditory canals without discharge or otorrhea. Tympanic membranes pearly solis without retraction or bulging. No fluid or purulent material visualized behind the TM. Handle of malleus, umbo, cone of light, pars tensa/flaccid all easily visualized. NOSE - Midline and without cyanosis. No epistaxis or purulent drainage noted. Septum midline without deviation or septal hematoma noted. MOUTH/OROPHARYNX - Without perioral cyanosis. Buccal mucosa pink and moist and without leukoplakia. Tongue midline with equal elevation of palate bilaterally. No tonsillar hypertrophy, erythema, or exudates noted. dentition noted. NECK - Neck with FROM. Supple to palpation. lymphadenopathy noted. No nuchal rigidity. LUNGS - Chest wall symmetric without accessory muscle use, intercostals retractions, or central cyanosis. Normal vesicular breath sounds CTA B/L. No wheezes, rales, or rhonchi appreciated. CARDIAC - RRR with S1/S2. No murmur, rubs, or gallops appreciated. ABDOMEN - Abdominal contour without pulsations or visible masses. BS normoactive all four quadrants. No tenderness, palpable masses, hepatosplenomegaly, or ascites noted. EXTREMITIES - No clubbing or peripheral cyanosis. No pretibial edema present. +3/5 radial, posterior tibial, and dorsalis pedis pulses palpated throughout. +5/5 strength noted in UE/LE bilaterally. NEUROLOGIC - Cranial nerves II through XII grossly intact. Sensory intact to light touch throughout. Patellar reflexes +2/4. PSYCH - A&Ox3 and cooperates fully with examiner. Pt is very pleasant and interacts well with examiner. Course Administered Medications Amitriptyline HCl (Amitriptyline Hcl 50 Mg Tab) 50 mg PO [facility] Stop: 02/10/20 20:59 Last Admin: 01/13/20 20:21 Dose: 50 mg Documented by: [id number] Admin: 01/12/20 20:14 Dose: 50 mg Documented by: [id number] Admin: 01/11/20 20:33 Dose: 50 mg Documented by: [id number] Aspirin (Aspirin 81 Mg Ectab) 81 mg PO [facility] Stop: 02/10/20 08:59 Last Admin: 01/13/20 07:56 Dose: 81 mg Documented by: [id number] Admin: 01/12/20 08:47 Dose: 81 mg Documented by: [id number] Admin: 01/11/20 08:32 Dose: 81 mg Documented by: [id number] Diazepam (Diazepam 5 Mg Tablet) 10 mg PO AC PRN PRN Reason: muscle spasm Stop: 02/10/20 02:49 Last Admin: 01/13/20 22:33 Dose: 10 mg Documented by: [id number] Diphenoxylate HCl/Atropine (Diphenoxylate/Atropine 2.5/0.025mg Tab) 2 tab PO QID PRN PRN Reason: Diarrhea Stop: 02/11/20 18:20 Last Admin: 01/12/20 20:15 Dose: 2 tab Documented by: [id number] Heparin Sodium (Porcine) (Heparin Sod 5,000 Unit/0.5 Ml Vial) 5,000 units SQ Q12 [facility] Stop: 02/11/20 08:59 Last Admin: 01/13/20 20:21 Dose: 5,000 units Documented by: [id number] Cosigned by: [id number] Admin: 01/13/20 07:56 Dose: 5,000 units Documented by: [id number] Cosigned by: [id number] Admin: 01/12/20 21:28 Dose: Not Given Documented by: [id number] Admin: 01/12/20 08:48 Dose: 5,000 units Documented by: [id number] Cosigned by: [id number] Metoprolol Tartrate (Metoprolol Tartrate 25 Mg Tab) 25 mg PO BID [facility] Stop: 02/10/20 08:59 Last Admin: 01/13/20 20:21 Dose: 25 mg Documented by: [id number] Admin: 01/13/20 07:55 Dose: 25 mg Documented by: [id number] Admin: 01/12/20 20:15 Dose: 25 mg Documented by: [id number] Admin: 01/12/20 07:28 Dose: 25 mg Documented by: [id number] Admin: 01/11/20 20:35 Dose: 25 mg Documented by: [id number] Admin: 01/11/20 07:22 Dose: 25 mg Documented by: [id number] Multivitamins/Minerals (Cerovite Adv Formula Tab) 1 tab PO QAM [facility] Stop: 02/11/20 08:59 Last Admin: 01/13/20 07:56 Dose: 1 tab Documented by: [id number] Admin: 01/12/20 08:47 Dose: 1 tab Documented by: [id number] Olmesartan (Olmesartan Medoxomil 40 Mg Tab) 40 mg PO QAM [facility] Stop: 02/12/20 08:59 Last Admin: 01/13/20 07:56 Dose: 40 mg Documented by: [id number] Ondansetron HCl (Ondansetron Inj 2 Mg/Ml 2 Ml Vial) 4 mg IV Q6H PRN PRN Reason: Nausea Stop: 02/10/20 02:49 Last Admin: 01/11/20 04:28 Dose: 4 mg Documented by: [id number] Discontinued Medications Cyanocobalamin (Cyanocobalamin 1000 Mcg/Ml Vial) 1,000 mcg IM ONE ONE Stop: 01/11/20 03:46 Last Admin: 01/11/20 06:21 Dose: 1,000 mcg Documented by: [id number] Gadobutrol (Gadobutrol 65ml Vial) 3.5 ml IV ONCE ONE Stop: 01/11/20 21:15 Last Admin: 01/11/20 21:14 Dose: 3.5 ml Documented by: [id number] Hydrocortisone Sodium Succinate (Hydrocortisone Sod Succinate 100 Mg/2 Ml Vial) 100 mg IV NOW STA Stop: 01/10/20 23:53 Last Admin: 01/11/20 00:51 Dose: 100 mg Documented by: [id number] Hydromorphone HCl (Hydromorphone Inj 0.5 Mg/0.5 Ml Syr) 0.25 mg IV Q15M PRN PRN Reason: Pain Stop: 01/25/20 00:31 Last Admin: 01/11/20 00:54 Dose: 0.25 mg Documented by: [id number] Sodium Chloride (Nss 1000ml) 1,000 mls @ 999 mls/hr IV .Q1H1M ONE Stop: 01/10/20 23:58 Last Infusion: 01/11/20 00:20 Dose: 0 mls/hr Documented by: [id number] Admin: 01/10/20 23:00 Dose: 999 mls/hr Documented by: [id number] Acetaminophen (Ofirmev) 1,000 mg in 100 mls @ 400 mls/hr IV NOW STA Stop: 01/11/20 00:46 Last Infusion: 01/11/20 01:07 Dose: 0 mls/hr Documented by: [id number] Admin: 01/11/20 00:54 Dose: 400 mls/hr Documented by: [id number] Sodium Chloride (Nss 1000ml) 1,000 mls @ 80 mls/hr IV .[id number] [facility] Stop: 01/11/20 15:19 Last Infusion: 01/11/20 16:58 Dose: 0 mls/hr Documented by: [id number] Admin: 01/11/20 04:27 Dose: 80 mls/hr Documented by: [id number] Magnesium Sulfate/Dextrose (Magnesium Sulfate / D5w) 1 gm in 100 mls @ 50 mls/hr IV TODAY@0915 [facility] Stop: 01/11/20 11:14 Last Infusion: 01/11/20 11:18 Dose: 0 mls/hr Documented by: [id number] Admin: 01/11/20 09:18 Dose: 50 mls/hr Documented by: [id number] Lorazepam (Ativan) 0.5 mg in 1 mls @ 1 mls/min IV ONE ONE Stop: 01/11/20 20:16 Last Admin: 01/11/20 20:35 Dose: 1 mls/min Documented by: [id number] Metoprolol Tartrate (Metoprolol Tartrate 25 Mg Tab) 25 mg PO NOW STA Stop: 01/10/20 23:36 Last Admin: 01/10/20 23:47 Dose: 25 mg Documented by: [id number] Olmesartan (Olmesartan Medoxomil 20 Mg Tab) 20 mg PO [facility] Stop: 02/10/20 08:59 Last Admin: 01/12/20 08:47 Dose: 20 mg Documented by: [id number] Admin: 01/11/20 08:32 Dose: 20 mg Documented by: [id number] Ondansetron HCl (Ondansetron Inj 2 Mg/Ml 2 Ml Vial) 4 mg IV NOW STA Stop: 01/11/20 00:33 Last Admin: 01/11/20 00:51 Dose: 4 mg Documented by: [id number] Sodium Chloride (Sodium Chloride 1 Gm Tablet) 1 gm PO ONE ONE Stop: 01/11/20 21:16 Last Admin: 01/11/20 21:49 Dose: 1 gm Documented by: [id number] Medical Decision Making Differential Diagnosis Infection, dehydration, metabolic abnormality, hypo/hyperglycemia, electrolyte disturbance, anemia, hypoxia, cardiac sources, intracerebral event, toxicologic, neurologic, as well as other pathologies. Medical Records Attestation: I reviewed the patient's medical records. Home Medications Current Medication List: was personally reviewed by me Laboratory Data Attestation: I reviewed the patient's lab results. Result diagrams: 01/13/20 07:23 01/13/20 07:23 Lab Results 01/10/20 01/10/20 01/10/20 Range/Units 23:15 23:15 23:15 WBC 5.70 (4.8-10.8) K/uL RBC 3.90 L (4.2-5.4) M/uL Hgb 12.9 (12.0-16.0) g/dL Hct 36.8 L (37-47) % MCV 94.4 (80-100) fL MCH 33.1 (25-34) pg MCHC 35.1 (32-36) g/dL RDW Std Deviation 40.8 (36.4-46.3) fL RDW Coeff of Ramone 12.1 (11.5-14.5) % Plt Count 311 (130-400) K/uL MPV 9.7 (7.4-10.4) fL Immature Gran % (Auto) 0.2 % Neut % (Auto) 79.0 % Lymph % (Auto) 12.5 % [place] % (Auto) 7.4 % Eos % (Auto) 0.7 % Baso % (Auto) 0.2 % Neut # (Auto) 4.51 (1.4-6.5) K/uL Lymph # (Auto) 0.71 L (1.2-3.4) K/uL [place] # (Auto) 0.42 (0.11-0.59) K/uL Eos # (Auto) 0.04 (0-0.5) K/uL Baso # (Auto) 0.01 (0-0.2) K/uL Immature Gran # (Auto) 0.01 (0.00-0.02) K/uL Sodium 129 L (136-145) mmol/L Potassium 4.1 (3.5-5.1) mmol/L Chloride 92 L (98-107) mmol/L Carbon Dioxide 26 (21-32) mmol/L Anion Gap 11.0 (3-11) BUN 10 (7-18) mg/dl Creatinine 0.67 (0.6-1.2) mg/dl Est Cr Clr Drug Dosing 41.1 ml/min Est GFR ( Amer) 94.2 Est GFR (Non-Af Amer) 81.3 BUN/Creatinine Ratio 15.3 (10-20) Glucose 115 H (70-99) mg/dl Calcium 9.9 (8.5-10.1) mg/dl Total Bilirubin 0.6 (0.2-1) mg/dl AST 21 (15-37) U/L ALT 78 (12-78) U/L Alkaline Phosphatase 101 (45-117) U/L Total Creatine Kinase 80 (26-192) U/L CK-MB (CK-2) 2.6 (0.5-3.6) ng/ml CK/CKMB % Calc 3.3 H (0-3.0) Troponin I < 0.015 (0-0.045) ng/ml Total Protein 7.5 (6.4-8.2) gm/dl Albumin 4.2 (3.4-5.0) gm/dl Globulin 3.3 (2.5-4.0) gm/dl Albumin/Globulin Ratio 1.3 (0.9-2) TSH 0.744 (0.300-4.500) uIu/ml Random Cortisol 32.62 mcg/dl Urine Color Urine Appearance (Clear) Urine pH (4.5-7.5) Ur Specific [place] (1.000-1.030) Urine Protein (Negative) Urine Glucose (UA) (Negative) Urine Ketones (Negative) Urine Blood (Negative) Urine Nitrite (Negative) Urine Bilirubin (Negative) Urine Urobilinogen (Negative) Ur Leukocyte Esterase (Negative) COVID-19 Eval Order COVID-19 PCR (Negative) 01/10/20 01/10/20 01/11/20 Range/Units 23:15 23:15 00:00 WBC (4.8-10.8) K/uL RBC (4.2-5.4) M/uL Hgb (12.0-16.0) g/dL Hct (37-47) % MCV (80-100) fL MCH (25-34) pg MCHC (32-36) g/dL RDW Std Deviation (36.4-46.3) fL RDW Coeff of Ramone (11.5-14.5) % Plt Count (130-400) K/uL MPV (7.4-10.4) fL Immature Gran % (Auto) % Neut % (Auto) % Lymph % (Auto) % [place] % (Auto) % Eos % (Auto) % Baso % (Auto) % Neut # (Auto) (1.4-6.5) K/uL Lymph # (Auto) (1.2-3.4) K/uL [place] # (Auto) (0.11-0.59) K/uL Eos # (Auto) (0-0.5) K/uL Baso # (Auto) (0-0.2) K/uL Immature Gran # (Auto) (0.00-0.02) K/uL Sodium (136-145) mmol/L Potassium (3.5-5.1) mmol/L Chloride (98-107) mmol/L Carbon Dioxide (21-32) mmol/L Anion Gap (3-11) BUN (7-18) mg/dl Creatinine (0.6-1.2) mg/dl Est Cr Clr Drug Dosing ml/min Est GFR ( Amer) Est GFR (Non-Af Amer) BUN/Creatinine Ratio (10-20) Glucose (70-99) mg/dl Calcium (8.5-10.1) mg/dl Total Bilirubin (0.2-1) mg/dl AST (15-37) U/L ALT (12-78) U/L Alkaline Phosphatase (45-117) U/L Total Creatine Kinase (26-192) U/L CK-MB (CK-2) (0.5-3.6) ng/ml CK/CKMB % Calc (0-3.0) Troponin I (0-0.045) ng/ml Total Protein (6.4-8.2) gm/dl Albumin (3.4-5.0) gm/dl Globulin (2.5-4.0) gm/dl Albumin/Globulin Ratio (0.9-2) TSH (0.300-4.500) uIu/ml Random Cortisol mcg/dl Urine Color Yellow Urine Appearance Clear (Clear) Urine pH 7.0 (4.5-7.5) Ur Specific [place] 1.012 (1.000-1.030) Urine Protein Negative (Negative) Urine Glucose (UA) Negative (Negative) Urine Ketones 2+ H (Negative) Urine Blood Negative (Negative) Urine Nitrite Negative (Negative) Urine Bilirubin Negative (Negative) Urine Urobilinogen Negative (Negative) Ur Leukocyte Esterase Negative (Negative) COVID-19 Eval Order Covid19 Done at [facility] COVID-19 PCR NEGATIVE (Negative) Imaging Data Radiologist's Impression: 1 view of the chest was interpreted by me shows bilateral breast implants no evidence of pneumonia congestion or pneumothorax. This is compared to previous x-rays and appears unchanged. ECG Data Attestation: I personally reviewed and interpreted this ECG as follows: Indication: + weakness Rate (beats per minute): 93 Rhythm: + normal sinus ECG Intervals/blocks: + Normal QT-c (447) ECG [place]: + Normal ECG ST segments: no ST depression and no ST elevation ECG Findings: + PACs and + LVH Comparison ECG Date: from (04/09/2019) Change: the following changes noted (PACs) MDM Narrative Patient was seen and evaluated as above in room C10. Review was performed of nursing notes and vital signs. I did review pertinent previous visits and patient history. After obtaining a thorough history and physical examination the above work up was performed. An order was placed for continuous cardiac monitoring. The monitor shows a rate of 66 with Normal SInus rhythm. This is an 84-year-old female who presents emergency department with complaint of generalized weakness. Patient has not left her bed all day and has not taken any of her medications. She also has been having diarrhea. She was found to be hyponatremic. She was given normal saline bolus here in the emergency department. Because of the patient's generalized weakness and her history of osteoarthritis she was given hydrocortisone. She was given Dilaudid for her pain. Repeat examination revealed improvement the patient's symptoms. She is negative for COVID. I did discuss the case with the hospitalist service who did agree to admit the patient. Patient and are in agreement with the treatment plan. The patient was evaluated during the global COVID-19 pandemic, and that diagnosis was suspected/considered upon their initial presentation. Their evaluation, treatment and testing was consistent with current guidelines for patients who present with complaints or symptoms that may be related to COVID- 19. Impression & Plan Weakness, HTN (hypertension), Acute hyponatremia Discharge Plan Visit Data Chief Complaint: Weakness Stated Complaint: WEAKNESS ED Provider: Haresh Scherer Discharge Problem: Weakness, HTN (hypertension), Acute hyponatremia Patient Disposition: Admitted As Inpatient Discharge Instructions Interventions: ED Discharge Assessment Last Done: 01/11/20 02:19 Discharge Problem: HTN (hypertension) Qualifiers: Hypertension type: unspecified Qualified Code(s): I10 - Essential (primary) hypertension
[2020-01-10] MEDS ORDERED: METOPROLOL TARTRATE 25 MG TAB PO STA (23:35)
[2020-01-10 23:49] LABS: Alanine Aminotransferase 78 U/L (12-78); Albumin Level 4.2 gm/dl (3.4-5.0); Aspartate Aminotransferase 21 U/L (15-37); BUN Creatinine Ratio 15.3 (10-20); Blood Urea Nitrogen 10 mg/dl (7-18); Calcium 9.9 mg/dl (8.5-10.1); Carbon Dioxide 26 mmol/L (21-32); Chloride 92 mmol/L (98-107); Creatinine Clr Calc Pharmacy 41.1 ml/min; Est GFR (African American) 94.2; Est GFR (Non-African American) 81.3; Glucose 115 mg/dl (70-99); Potassium 4.1 mmol/L (3.5-5.1); Sodium 129 mmol/L (136-145)
[2020-01-10] MEDS ORDERED: HYDROCORTISONE SOD SUCCINATE 100 MG/2 ML VIAL IV STA (23:52)
[2020-01-11] LABS: Albumin Globulin Ratio 1.3 (0.9-2); Alkaline Phosphatase 101 U/L (45-117); Bilirubin,Total 0.6 mg/dl (0.2-1); Creatine Kinase 80 U/L (26-192); Creatine Kinase MB 2.6 ng/ml (0.5-3.6); Globulin 3.3 gm/dl (2.5-4.0); Thyroid Stimulating Hormone 0.744 uIu/ml (0.300-4.500); Total Protein 7.5 gm/dl (6.4-8.2); Troponin I < 0.015 ng/ml (0-0.045)
[2020-01-11 00:18] LABS: Appearance Urine Clear (Clear); Bilirubin Urine Negative (Negative); Blood Urine Negative (Negative); Color Urine Yellow; Glucose Urine UA Negative (Negative); Ketones Urine 2+ (Negative); Leukocyte Esterase Urine Negative (Negative); Nitrite Urine Negative (Negative); Protein Urine Negative (Negative); Specific Gravity Urine 1.012 (1.000-1.030); Urobilinogen Urine Negative (Negative)
[2020-01-11] MEDS ORDERED: ONDANSETRON INJ 2 MG/ML 2 ML VIAL IV STA (00:32)
[2020-01-11] MEDS ORDERED: HYDROmorphone INJ 0.5 MG/0.5 ML SYR IV PRN (00:32)
[2020-01-11] MEDS ORDERED: ACETAMINOPHEN 1,000 MG/100 ML VIAL IV STA (00:32)
--- NOTE | 2020-01-11 01:17 | History & Physical Report ---
Date of Service January 11, 2020 Assessment & Plan (1) Weakness: Etiology uncertain at this time. Neurological exam is nonfocal. Patient does ambulate with an unsteady gait and states that she has been unable to get out of bed due to weakness and fatigue. -Check ESR, CRP -CK is within normal limits -PT/OT evaluation Present on Admission?: Yes (2) Acute hyponatremia: Rq=337. Range has been 125-138 over the last 8 months. Possibly contributing to patient's weakness? She appears dry on exam, ?volume loss due to diarrhea? -IVF with NSS -Repeat labs in AM Present on Admission?: Yes (3) Diarrhea: Patient reports diarrhea over the last 2 days, has history of c. diff -Check c. diff -Check stool culture -Continue to monitor Present on Admission?: Yes (4) HTN (hypertension): Markedly elevated BP in the ER. Patient did not take her medications today. Improved with Metoprolol -Continue home medications, Metoprolol, Olmesartan -Continue to monitor Present on Admission?: Yes (5) Vitamin B12 deficiency: Uncertain if B12 deficiency is contributing to patients dysesthesias. Level was normal in October. No macrocytosis -Administer B12 injection x 1 -Continue to monitor Present on Admission?: Yes (6) Anxiety disorder: Chronic. Patient receives Valium 10mg po AC PRN -Continue home Valium dosing -Patient may benefit from outpatient taper of this medication as tolerated F/E/N - NSS, monitor Na, check Mg and PO4, Heart Healthy diet as tolerated Ppx - continue ASA home dose, no additional ppx as patient with epistaxis on arrival Code - Full Dispo - Admit to medical floor Present on Admission?: Yes History of Present Illness Chief Complaint: weakness, unable to get out of bed Primary Care Provider: Cali Zuleta MD Elsa Felton is an 84yo female with history of HTN, HLP, Pernicious anemia presenting with 2 days of progressive diffuse weakness and fatigue. Patient states that she has been unable to get out of bed. She reports increased frequency of muscle spasms in her legs, arms and hands and the feeling of "feathers going up and down my legs". These sensations have been present since patient had a fall in November but have become more frequent over the last two days. She thinks they may be secondary to having a pinched nerve. Additionally she is complaining of 2-3 days of lower abdominal pain as well as frequent episodes of watery diarrhea. She had one episode of vomiting. She denies fever/chills/CP/SOB/cough/dysuria/urinary retention or incontinence. ER Course: Hydrocortisone, Metoprolol, NSS Allergies Allergy/AdvReac Type Severity Reaction Status Date / Time Penicillins Allergy Mild Unknown Verified 01/10/20 23:23 acetaminophen Allergy Unknown Verified 01/10/20 23:23 [From Tylenol-Codeine] aloe vera Allergy Unknown Verified 01/10/20 23:23 amlodipine [From Norvasc] Allergy Unknown Verified 01/10/20 23:23 ciprofloxacin Allergy Anaphylaxis Verified 01/10/20 23:23 codeine Allergy Unknown Verified 01/10/20 23:23 [From Tylenol-Codeine] meloxicam Allergy Unknown Verified 01/10/20 23:23 pseudoephedrine Allergy Unknown Verified 01/10/20 23:23 [From Sudafed] pantoprazole AdvReac Intermediate Gastrointestinal Verified 01/10/20 23:23 Upset Home Medications Home Medications Medication Instructions Recorded Confirmed Type acetaminophen 325 mg capsule 325 mg PO Q6H PRN 10/17/18 01/10/20 History aspirin 81 mg tablet,delayed 81 mg PO QAM tab 10/17/18 01/10/20 History release biotin 5 mg capsule 5 mg PO QAM cap 10/17/18 01/10/20 History multivit with 1 tab PO QAM 03/04/19 01/10/20 History qmkierdu-kggz-DW-lutein 8 mg iron-400 mcg-300 mcg tablet syringe with needle 3 mL 25 x 5/8" #6 ea 03/05/19 10/16/19 Rx albuterol sulfate [Ventolin HFA] 1 puffs INH Q6H PRN #8 gm 04/05/19 01/10/20 Rx cyanocobalamin (vitamin B-12) 1,000 mcg IM .EVERY 2 WEEKS 04/05/19 01/10/20 History olmesartan 20 mg tablet 20 mg PO QAM #90 tab 08/28/19 01/10/20 Rx amitriptyline 25 mg tablet 50 mg PO HS #180 tab 09/10/19 01/10/20 Rx diphenoxylate-atropine 2.5 2 tab PO QID PRN #180 tab 10/05/19 01/10/20 Rx mg-0.025 mg tablet ergocalciferol (vitamin D2) 1,250 50,000 units PO MONTHLY #3 cap 10/05/19 01/10/20 Rx mcg (50,000 unit) capsule nitrofurantoin macrocrystal 100 mg 200 mg PO .COMPLEX #30 cap 10/23/19 01/10/20 Rx capsule metoprolol tartrate 25 mg tablet 25 mg PO BID 30 Days #60 tab 11/13/19 01/10/20 Rx tramadol 50 mg tablet 50 mg PO Q6H PRN #20 tab 12/11/19 01/10/20 Rx diazepam 5 mg tablet 10 mg PO AC PRN #20 tab 12/19/19 01/10/20 Rx Past Med/Surg History Medical History Acute hyponatremia Diarrhea associated with pseudomembranous colitis Fall Generalized osteoarthritis of multiple sites Hyperlipidemia Hypokalemia Hypotension Impaired fasting glucose Irritable bowel syndrome Knee pain, bilateral Osteopenia Pernicious anemia Vasovagal episode Vitamin B12 deficiency Vitamin D deficiency Surgical History H/O breast surgery breast enlargement history Hx of tonsillectomy Family History Father Congestive heart failure Aunt Breast cancer Atrial fibrillation Lung cancer Denies family history of Ovarian cancer Prostate cancer Colorectal cancer Social History Smoking Status: Former smoker Second Hand Exposure: No; Hx Alcohol Use: Yes Alcohol type: wine Hx Substance Use: No Preferred Language: [place] Communication Ability: Effective Visual Impairment: No Limitations Hearing Ability: Normal Manager Travel Required: No Beliefs That Will Affect Care: None marital status: Current Living Situation: Spouse current occupational status: retired Feels Safe at Home: Yes Childhood Exposure to Second-Hand Smoke: Yes Dental Care, Regularly: Yes Physical Activity Frequency: Does not Exercise Seatbelt Use: always Sunscreen Use: Yes Review of Systems Review of Systems: All systems reviewed & are unremarkable except as noted in HPI & below Physical Exam Physical Exam: General: patient resting comfortably, NAD, non-toxic in appearance, answers questions appropriately Skin: warm, dry, intact, no rashes or lesions HEENT: NC/AT, PERRL, EOMI, anicteric sclera, conjunctiva without injection, external ear normal to inspection and nontender, nares patent, moist mucus membranes, no oropharyngeal lesions, neck supple, trachea midline, no LAD, no thyromegaly, no JVD, mild temporal tenderness Heart: +S1/S2, regular, no m/r/g Lungs: equal air entry bilaterally, no rales/rhonchi/wheezes Abd: +BS, soft, ND, mild tenderness with palpation of lower abdomen, no rebound/guarding/peritoneal signs, no masses/organomegaly/ascites Ext: warm, 2+ pulses in UE/LE bilaterally, no clubbing/cyanosis or edema Neuro: nonfocal, patient AA&O x 4, speech intact, no facial droop, moving all extremities on command with equal strength 5/5, ambulates with unsteady gait Results & Data Results & Data ([facility]) Vital Signs (Past 12 Hours) Vital Signs Temp Pulse Resp BP Pulse Ox 01/11/20 01:01 66 18 155/129 H 96 01/11/20 00:30 94 H 19 180/112 H 96 01/10/20 23:31 87 19 170/105 H 97 01/10/20 22:55 37.1 C 98 H 20 207/112 H 98 01/10/20 22:37 94 H 20 207/112 H 97 Laboratory Results Lab Results 01/10/20 01/10/20 01/10/20 Range/Units 23:15 23:15 23:15 WBC 5.70 (4.8-10.8) K/uL RBC 3.90 L (4.2-5.4) M/uL Hgb 12.9 (12.0-16.0) g/dL Hct 36.8 L (37-47) % MCV 94.4 (80-100) fL MCH 33.1 (25-34) pg MCHC 35.1 (32-36) g/dL RDW Std Deviation 40.8 (36.4-46.3) fL RDW Coeff of Ramone 12.1 (11.5-14.5) % Plt Count 311 (130-400) K/uL MPV 9.7 (7.4-10.4) fL Immature Gran % (Auto) 0.2 % Neut % (Auto) 79.0 % Lymph % (Auto) 12.5 % Morrill % (Auto) 7.4 % Eos % (Auto) 0.7 % Baso % (Auto) 0.2 % Neut # (Auto) 4.51 (1.4-6.5) K/uL Lymph # (Auto) 0.71 L (1.2-3.4) K/uL Morrill # (Auto) 0.42 (0.11-0.59) K/uL Eos # (Auto) 0.04 (0-0.5) K/uL Baso # (Auto) 0.01 (0-0.2) K/uL Immature Gran # (Auto) 0.01 (0.00-0.02) K/uL Sodium 129 L (136-145) mmol/L Potassium 4.1 (3.5-5.1) mmol/L Chloride 92 L (98-107) mmol/L Carbon Dioxide 26 (21-32) mmol/L Anion Gap 11.0 (3-11) BUN 10 (7-18) mg/dl Creatinine 0.67 (0.6-1.2) mg/dl Est Cr Clr Drug Dosing 41.1 ml/min Est GFR ( Amer) 94.2 Est GFR (Non-Af Amer) 81.3 BUN/Creatinine Ratio 15.3 (10-20) Glucose 115 H (70-99) mg/dl Calcium 9.9 (8.5-10.1) mg/dl Total Bilirubin 0.6 (0.2-1) mg/dl AST 21 (15-37) U/L ALT 78 (12-78) U/L Alkaline Phosphatase 101 (45-117) U/L Total Creatine Kinase 80 (26-192) U/L CK-MB (CK-2) 2.6 (0.5-3.6) ng/ml CK/CKMB % Calc 3.3 H (0-3.0) Troponin I < 0.015 (0-0.045) ng/ml Total Protein 7.5 (6.4-8.2) gm/dl Albumin 4.2 (3.4-5.0) gm/dl Globulin 3.3 (2.5-4.0) gm/dl Albumin/Globulin Ratio 1.3 (0.9-2) TSH 0.744 (0.300-4.500) uIu/ml Random Cortisol 32.62 mcg/dl Urine Color Urine Appearance (Clear) Urine pH (4.5-7.5) Ur Specific Haskell (1.000-1.030) Urine Protein (Negative) Urine Glucose (UA) (Negative) Urine Ketones (Negative) Urine Blood (Negative) Urine Nitrite (Negative) Urine Bilirubin (Negative) Urine Urobilinogen (Negative) Ur Leukocyte Esterase (Negative) COVID-19 Eval Order COVID-19 PCR (Negative) 01/10/20 01/10/20 01/11/20 Range/Units 23:15 23:15 00:00 WBC (4.8-10.8) K/uL RBC (4.2-5.4) M/uL Hgb (12.0-16.0) g/dL Hct (37-47) % MCV (80-100) fL MCH (25-34) pg MCHC (32-36) g/dL RDW Std Deviation (36.4-46.3) fL RDW Coeff of Ramone (11.5-14.5) % Plt Count (130-400) K/uL MPV (7.4-10.4) fL Immature Gran % (Auto) % Neut % (Auto) % Lymph % (Auto) % Morrill % (Auto) % Eos % (Auto) % Baso % (Auto) % Neut # (Auto) (1.4-6.5) K/uL Lymph # (Auto) (1.2-3.4) K/uL Morrill # (Auto) (0.11-0.59) K/uL Eos # (Auto) (0-0.5) K/uL Baso # (Auto) (0-0.2) K/uL Immature Gran # (Auto) (0.00-0.02) K/uL Sodium (136-145) mmol/L Potassium (3.5-5.1) mmol/L Chloride (98-107) mmol/L Carbon Dioxide (21-32) mmol/L Anion Gap (3-11) BUN (7-18) mg/dl Creatinine (0.6-1.2) mg/dl Est Cr Clr Drug Dosing ml/min Est GFR ( Amer) Est GFR (Non-Af Amer) BUN/Creatinine Ratio (10-20) Glucose (70-99) mg/dl Calcium (8.5-10.1) mg/dl Total Bilirubin (0.2-1) mg/dl AST (15-37) U/L ALT (12-78) U/L Alkaline Phosphatase (45-117) U/L Total Creatine Kinase (26-192) U/L CK-MB (CK-2) (0.5-3.6) ng/ml CK/CKMB % Calc (0-3.0) Troponin I (0-0.045) ng/ml Total Protein (6.4-8.2) gm/dl Albumin (3.4-5.0) gm/dl Globulin (2.5-4.0) gm/dl Albumin/Globulin Ratio (0.9-2) TSH (0.300-4.500) uIu/ml Random Cortisol mcg/dl Urine Color Yellow Urine Appearance Clear (Clear) Urine pH 7.0 (4.5-7.5) Ur Specific Haskell 1.012 (1.000-1.030) Urine Protein Negative (Negative) Urine Glucose (UA) Negative (Negative) Urine Ketones 2+ H (Negative) Urine Blood Negative (Negative) Urine Nitrite Negative (Negative) Urine Bilirubin Negative (Negative) Urine Urobilinogen Negative (Negative) Ur Leukocyte Esterase Negative (Negative) COVID-19 Eval Order Covid19 Done at [facility] COVID-19 PCR NEGATIVE (Negative) Diagnostic Findings CXR - by my interpretation, image shows midline trachea, normal cardiac silhouette, calcified breast implants, no evidence of pneumonia, pulmonary edema or pneumothorax Code Status & VTE Plan Code Status FULL PG Care Time/CCT Total # of Minutes Spent Total Time Spent with Patient: Total time spent is greater than 50% in coordination of care (as documented) at patient's floor/unit and/or counseling patient: Coding Level of Care Code 57084 Initial Inpt Care Lvl 3 Diagnoses Weakness R53.1 Acute hyponatremia E87.1 Diarrhea R19.7 Diarrhea type: unspecified type HTN (hypertension) I10 Hypertension type: unspecified Vitamin B12 deficiency E53.8 Anxiety disorder F41.9 Anxiety disorder type: unspecified anxiety disorder (1) Anxiety disorder Anxiety disorder type: unspecified anxiety disorder Qualified Code(s): F41.9 - Anxiety disorder, unspecified (2) HTN (hypertension) Hypertension type: unspecified Qualified Code(s): I10 - Essential (primary) hypertension (3) Diarrhea Diarrhea type: unspecified type Qualified Code(s): R19.7 - Diarrhea, unspecified
[2020-01-11] MEDS ORDERED: CYANOCOBALAMIN 1,000 MCG in SYRINGE 0.97 ML IM ONE (02:50)
[2020-01-11] MEDS ORDERED: ONDANSETRON INJ 2 MG/ML 2 ML VIAL IV PRN (02:50)
[2020-01-11] MEDS ORDERED: ACETAMINOPHEN 325 MG TAB PO PRN (02:50)
[2020-01-11] MEDS ORDERED: diazePAM 5 MG TABLET PO PRN (02:50)
[2020-01-11] MEDS ORDERED: ALBUTEROL HFA 8 GM INHALER INH PRN (02:50)
[2020-01-11] MEDS ORDERED: SODIUM CHLORIDE 0.9% 1000ML 1,000 ML IV SCH (02:50)
[2020-01-11] MEDS ORDERED: CYANOCOBALAMIN 1000 MCG/ML VIAL IM ONE (03:45)
--- NOTE | 2020-01-11 06:24 | XRay Report ---
XR chest 1V portable HISTORY: 84 years-old Female weakness acute weakness COMPARISON: Chest radiograph 6 04/09/2019 TECHNIQUE: Portable AP view of the chest FINDINGS: Cardiomediastinal and hilar silhouettes are within normal limits. No pneumothorax, pleural effusion, airspace consolidation or overt pulmonary edema. Calcified bilateral breast implants. Emphysema. Nipp le shadow projects over the left lung base. Degenerative changes of the shoulders and spine. Lumbar l evoscoliosis. IMPRESSION: No acute process. ACT 112: Negative or not required by law. The above report was generated using voice recognition software. It may contain grammatical, syntax o r spelling errors. Electronically signed by: Josué Godoy M.D. 01/11/2020 6:22 AM
[2020-01-11] MEDS: METOPROLOL TARTRATE 25 MG TAB PO SCH ×2 (07:22→20:35)
[2020-01-11 08:05] LABS: C Reactive Protein < 0.29 mg/dl (0-0.29); Magnesium 1.7 mg/dl (1.8-2.4); Phosphorus 3.5 mg/dl (2.5-4.9)
[2020-01-11] MEDS: OLMESARTAN MEDOXOMIL 20 MG TAB PO SCH (08:32)
[2020-01-11] MEDS: ASPIRIN 81 MG ECTAB PO SCH (08:32)
[2020-01-11] MEDS ORDERED: MAGNESIUM SULFATE / D5W 1 GM/100 ML BAG IV SCH (09:15)
[2020-01-11 09:37] LABS: BUN Creatinine Ratio 16.8 (10-20); Calcium 8.8 mg/dl (8.5-10.1); Creatinine Clr Calc Pharmacy 36.9 ml/min; Est GFR (African American) 89.8; Est GFR (Non-African American) 77.4; Potassium 3.9 mmol/L (3.5-5.1)
--- NOTE | 2020-01-11 12:40 | Electrocardiogram Report ---
Test Reason : Blood Pressure : / mmHG Vent. Rate : 093 BPM Atrial Rate : 093 BPM P-R Int : 192 ms QRS Dur : 072 ms QT Int : 360 ms P-R-T Axes : 032 055 050 degrees QTc Int : 447 ms Sinus rhythm with Premature atrial complexes Minimal voltage criteria for LVH, may be normal variant Borderline ECG When compared with ECG of 09-APR-2019 11:04, Premature atrial complexes are now Present Confirmed by Aditya Messina ([id number] on 01/11/2020 12:39:55 PM Referred By: Cali Zuleta Confirmed By:Darin Messina
[2020-01-11 18:21] LABS: Lyme Ab IgG w/WB Rflx Negative (Negative); Lyme Ab IgM w/WB Rflx Negative (Negative)
[2020-01-11] MEDS ORDERED: LORazepam 0.5 MG/1 ML VIAL IV ONE (20:15)
[2020-01-11] MEDS: AMITRIPTYLINE HCL 50 MG TAB PO SCH (20:33)
--- NOTE | 2020-01-11 20:57 | Hospitalist Progress Note ---
Date of Service January 11, 2020 Assessment & Plan (1) Acute hyponatremia: Ry=324 at presentation, and following IV hydration there was no change with repeat of 129. Range has been 125-138 over the last 8 months. Urine osm quite high, urine Na >100, and serum osm 269. 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 Will stop fluids. Give salt tab now. Repeat BMP in am. I do not believe the low sodium is the reason she has been feeling poorly for the last month. I believe the sodium issue is secondary or perhaps a marker of the underlying process (occult cancer? other?). (2) Weakness: Etiology uncertain. Thus far ESR, CRP, TSH, cortisol, CPK, CBC, CXR, u/a, Lyme Ab's -- all normal/negative. B12 level in October was >1000. COVID-19 PCR negative. I added on anaplasmosis DNA test. I ordered 2 sets of blood cultures. Due to confusion, unsteady gait, weakness - ordered MRI brain - r/o NPH. Consider myasthenia gravis ab's. If above labs and MRI are negative -- consider CT chest/abd/pelvis to r/o occult cancer. Could she have a paraneoplastic syndrome causing her symptoms?? Pt/Ot evaluations requested. Lastly, I spoke with Dr. Valdez from neurology who will consult in am for additional recommendations. Consider [place]TE and aldolase testing. (3) Diarrhea: Patient reported diarrhea to the admitting MD but she has had no diarrhea since admission. has h/o IBS. if she produces stool send for cdiff testing and stool cx. (4) HTN (hypertension): BPs quite high since admission. Remains on Metoprolol, Olmesartan. These may need adjusting. If still high tomorrow then titrate meds. (5) Vitamin B12 deficiency: level in October >1000 h/o pernicious anemia (6) Anxiety disorder: Chronic. Patient receives Valium 10mg po AC PRN (7) Severe protein-calorie malnutrition: 7+ pounds of weight loss x 1 month add MVI add boost BID looking for underlying cause (8) Hypomagnesemia: replace repeat level am (9) DVT prophylaxis: will add heparin 5000 BID updated by phone today extensively Admission and Anticipated Discharge Date Admission Date: January 11, 2020 Subjective patient with numerous complaints. states that for at least 1 month her appetite has been poor and she has lost at least 7 pounds maybe more. she has always been thin/petite all of her life but now she weighs in the 80s. she has had extreme weakness and fatigue. wakes up tired, and has been napping frequently during the day. she has felt confused with cognitive impairment, often trying to remember certain things but simply unable to remember them. c/o muscle "spasms" in the thighs b/l. no true fasciculations but she can feel the thighs "spasm up." her arms and legs feel weak - especially the legs - and it is difficult to get up from the bed or a chair. she does feel achy on a general level but the spasms are the worst. has b/l knee pain - saw ortho for this - advanced OA present. no fevers but has had sweats. some chills. no dyspnea or cough. no chest pain. no abdominal pain (but mentioned this to the admitting MD last night). ?diarrhea as well. no travel. no sick contacts. Review of Systems Constitutional: + chills, + body aches, + fatigue, + malaise, + weakness, + anorexia, + weight loss and + daytime sleepiness; no fever Ear, Nose, Mouth, Throat: no sore throat and no dysphagia Respiratory: no dyspnea Cardiovascular: no chest pain Gastrointestinal: as per Subjective / HPI; no vomiting Integumentary: no rash Physical Exam Constitutional: + thin, + altered mental status and + frail appearing; no acute distress ENMT: external ear and nose normal, oropharynx normal Respiratory: normal respiratory effort, lungs clear to auscultation Cardiovascular: Rate/Rhythm: regular rate and regular rhythm Heart Sounds: normal S1 and normal S2; no murmur Vessels: posterior tibial pulses present and dorsalis pedis pulses present; no JVD Extremities: no edema Gastrointestinal (Abdomen): normal bowel sounds, soft, nontender, no hepatosplenomegaly Musculoskeletal: severe OA changes b/l knees Skin: no rashes, warm and dry Neurologic: no proximal muscle weakness of arms or legs. strength upper/lower limbs 5/5. no fasciculations noted during the exam. reflexes brisk throughout. minimal muscle atrophy b/l thighs. no facial droop. Psychiatric: Orientation: alert, oriented x 3, oriented to person, oriented to place and oriented to time Results & Data Results & Data ([facility]) Vital Signs (Past 12 Hours) Vital Signs Temp Pulse Resp BP Pulse Ox 01/11/20 15:14 37.4 C 68 18 162/66 H 98 Laboratory Results Laboratory Results - last 24 hr 01/10/20 01/10/20 01/10/20 23:15 23:15 23:15 WBC 5.70 RBC 3.90 L Hgb 12.9 Hct 36.8 L MCV 94.4 MCH 33.1 MCHC 35.1 RDW Std Deviation 40.8 RDW Coeff of Ramone 12.1 Plt Count 311 MPV 9.7 Immature Gran % (Auto) 0.2 Neut % (Auto) 79.0 Lymph % (Auto) 12.5 Tyrrell % (Auto) 7.4 Eos % (Auto) 0.7 Baso % (Auto) 0.2 Neut # (Auto) 4.51 Lymph # (Auto) 0.71 L Tyrrell # (Auto) 0.42 Eos # (Auto) 0.04 Baso # (Auto) 0.01 Immature Gran # (Auto) 0.01 ESR Sodium 129 L Potassium 4.1 Chloride 92 L Carbon Dioxide 26 Anion Gap 11.0 BUN 10 Creatinine 0.67 Est Cr Clr Drug Dosing 41.1 Est GFR ( Amer) 94.2 Est GFR (Non-Af Amer) 81.3 BUN/Creatinine Ratio 15.3 Glucose 115 H Osmolality Calcium 9.9 Phosphorus Magnesium Total Bilirubin 0.6 AST 21 ALT 78 Alkaline Phosphatase 101 Total Creatine Kinase 80 CK-MB (CK-2) 2.6 CK/CKMB % Calc 3.3 H Troponin I < 0.015 C-Reactive Protein Total Protein 7.5 Albumin 4.2 Globulin 3.3 Albumin/Globulin Ratio 1.3 TSH 0.744 Random Cortisol 32.62 Urine Color Urine Appearance Urine pH Ur Specific [place] Urine Protein Urine Glucose (UA) Urine Ketones Urine Blood Urine Nitrite Urine Bilirubin Urine Urobilinogen Ur Leukocyte Esterase Urine Osmolality Ur Random Sodium A. phagocytophilum DNA Lyme Disease IgG Ab Lyme Disease IgM Ab COVID-19 Eval Order COVID-19 PCR 01/10/20 01/10/20 01/11/20 23:15 23:15 00:00 WBC RBC Hgb Hct MCV MCH MCHC RDW Std Deviation RDW Coeff of Ramone Plt Count MPV Immature Gran % (Auto) Neut % (Auto) Lymph % (Auto) Tyrrell % (Auto) Eos % (Auto) Baso % (Auto) Neut # (Auto) Lymph # (Auto) Tyrrell # (Auto) Eos # (Auto) Baso # (Auto) Immature Gran # (Auto) ESR Sodium Potassium Chloride Carbon Dioxide Anion Gap BUN Creatinine Est Cr Clr Drug Dosing Est GFR ( Amer) Est GFR (Non-Af Amer) BUN/Creatinine Ratio Glucose Osmolality Calcium Phosphorus Magnesium Total Bilirubin AST ALT Alkaline Phosphatase Total Creatine Kinase CK-MB (CK-2) CK/CKMB % Calc Troponin I C-Reactive Protein Total Protein Albumin Globulin Albumin/Globulin Ratio TSH Random Cortisol Urine Color Yellow Urine Appearance Clear Urine pH 7.0 Ur Specific [place] 1.012 Urine Protein Negative Urine Glucose (UA) Negative Urine Ketones 2+ H Urine Blood Negative Urine Nitrite Negative Urine Bilirubin Negative Urine Urobilinogen Negative Ur Leukocyte Esterase Negative Urine Osmolality Ur Random Sodium A. phagocytophilum DNA Lyme Disease IgG Ab Lyme Disease IgM Ab COVID-19 Eval Order Covid19 Done at [facility] COVID-19 PCR NEGATIVE 01/11/20 01/11/20 01/11/20 07:15 07:15 09:00 WBC RBC Hgb Hct MCV MCH MCHC RDW Std Deviation RDW Coeff of Ramone Plt Count MPV Immature Gran % (Auto) Neut % (Auto) Lymph % (Auto) Tyrrell % (Auto) Eos % (Auto) Baso % (Auto) Neut # (Auto) Lymph # (Auto) Tyrrell # (Auto) Eos # (Auto) Baso # (Auto) Immature Gran # (Auto) ESR 2 Sodium 129 L Potassium 3.9 Chloride 94 L Carbon Dioxide 25 Anion Gap 10.0 BUN 12 Creatinine 0.72 Est Cr Clr Drug Dosing 36.9 Est GFR ( Amer) 89.8 Est GFR (Non-Af Amer) 77.4 BUN/Creatinine Ratio 16.8 Glucose 191 H Osmolality Calcium 8.8 Phosphorus 3.5 Magnesium 1.7 L Total Bilirubin AST ALT Alkaline Phosphatase Total Creatine Kinase CK-MB (CK-2) CK/CKMB % Calc Troponin I C-Reactive Protein < 0.29 Total Protein Albumin Globulin Albumin/Globulin Ratio TSH Random Cortisol Urine Color Urine Appearance Urine pH Ur Specific [place] Urine Protein Urine Glucose (UA) Urine Ketones Urine Blood Urine Nitrite Urine Bilirubin Urine Urobilinogen Ur Leukocyte Esterase Urine Osmolality Ur Random Sodium A. phagocytophilum DNA Lyme Disease IgG Ab Lyme Disease IgM Ab COVID-19 Eval Order COVID-19 PCR 01/11/20 01/11/20 01/11/20 14:33 14:33 14:33 WBC RBC Hgb Hct MCV MCH MCHC RDW Std Deviation RDW Coeff of Ramone Plt Count MPV Immature Gran % (Auto) Neut % (Auto) Lymph % (Auto) Tyrrell % (Auto) Eos % (Auto) Baso % (Auto) Neut # (Auto) Lymph # (Auto) Tyrrell # (Auto) Eos # (Auto) Baso # (Auto) Immature Gran # (Auto) ESR Sodium Potassium Chloride Carbon Dioxide Anion Gap BUN Creatinine Est Cr Clr Drug Dosing Est GFR ( Amer) Est GFR (Non-Af Amer) BUN/Creatinine Ratio Glucose Osmolality 269 L Calcium Phosphorus Magnesium Total Bilirubin AST ALT Alkaline Phosphatase Total Creatine Kinase CK-MB (CK-2) CK/CKMB % Calc Troponin I C-Reactive Protein Total Protein Albumin Globulin Albumin/Globulin Ratio TSH Random Cortisol Urine Color Urine Appearance Urine pH Ur Specific [place] Urine Protein Urine Glucose (UA) Urine Ketones Urine Blood Urine Nitrite Urine Bilirubin Urine Urobilinogen Ur Leukocyte Esterase Urine Osmolality Ur Random Sodium A. phagocytophilum DNA Pending Lyme Disease IgG Ab Negative Lyme Disease IgM Ab Negative COVID-19 Eval Order COVID-19 PCR 01/11/20 01/11/20 Unknown Unknown WBC RBC Hgb Hct MCV MCH MCHC RDW Std Deviation RDW Coeff of Ramone Plt Count MPV Immature Gran % (Auto) Neut % (Auto) Lymph % (Auto) Tyrrell % (Auto) Eos % (Auto) Baso % (Auto) Neut # (Auto) Lymph # (Auto) Tyrrell # (Auto) Eos # (Auto) Baso # (Auto) Immature Gran # (Auto) ESR Sodium Potassium Chloride Carbon Dioxide Anion Gap BUN Creatinine Est Cr Clr Drug Dosing Est GFR ( Amer) Est GFR (Non-Af Amer) BUN/Creatinine Ratio Glucose Osmolality Calcium Phosphorus Magnesium Total Bilirubin AST ALT Alkaline Phosphatase Total Creatine Kinase CK-MB (CK-2) CK/CKMB % Calc Troponin I C-Reactive Protein Total Protein Albumin Globulin Albumin/Globulin Ratio TSH Random Cortisol Urine Color Urine Appearance Urine pH Ur Specific [place] Urine Protein Urine Glucose (UA) Urine Ketones Urine Blood Urine Nitrite Urine Bilirubin Urine Urobilinogen Ur Leukocyte Esterase Urine Osmolality 524 Ur Random Sodium 122 A. phagocytophilum DNA Lyme Disease IgG Ab Lyme Disease IgM Ab COVID-19 Eval Order COVID-19 PCR PG Care Time/CCT Total # of Minutes Spent Total Time Spent with Patient: Total time spent is greater than 50% in coordination of care (as documented) at patient's floor/unit and/or counseling patient: Coding Level of Care Code 31584 Subseq Hosp Care Lvl 3 Diagnoses Acute hyponatremia E87.1 Weakness R53.1 Diarrhea R19.7 Diarrhea type: unspecified type HTN (hypertension) I10 Hypertension type: unspecified Vitamin B12 deficiency E53.8 Anxiety disorder F41.9 Anxiety disorder type: unspecified anxiety disorder Severe protein-calorie malnutrition E43 Hypomagnesemia E83.42 DVT prophylaxis Z29.9 (1) Anxiety disorder Anxiety disorder type: unspecified anxiety disorder Qualified Code(s): F41.9 - Anxiety disorder, unspecified (2) Diarrhea Diarrhea type: unspecified type Qualified Code(s): R19.7 - Diarrhea, unspecified (3) HTN (hypertension) Hypertension type: unspecified Qualified Code(s): I10 - Essential (primary) hypertension
[2020-01-11] MEDS ORDERED: GADOBUTROL 65ML VIAL IV ONE (21:14)
[2020-01-11] MEDS ORDERED: SODIUM CHLORIDE 1 GM TABLET PO ONE (21:15)
--- NOTE | 2020-01-12 07:24 | Magnetic Resonance Report ---
MRI OF THE BRAIN WITHOUT AND WITH IV CONTRAST CLINICAL HISTORY: b/l leg weakness, mental status changes COMPARISON STUDY: No previous studies for comparison. TECHNIQUE: Utilizing a 1.5 [place] magnet and dedicated coil, multiplanar, multiecho imaging of the br ain was performed pre and postcontrast administration. IV administration of 3.5 mL of Gadavist contr ast was uneventful. FINDINGS: There are no foci of restricted diffusion to suggest acute infarct. No acute intracranial h emorrhage, midline shift or mass effect is present. There is moderate atrophy. Ventricular system is unremarkable. There is no intracranial mass or pathologic enhancement. White matter T2 hyperintense f oci suggest mild small vessel disease. Calvarial signal is normal. Orbits are unremarkable. IMPRESSION: 1. No acute intracranial findings. 2. No intracranial mass or pathologic enhancement. 3. Moderate atrophy and mild small vessel disease. ACT 112: Negative or not required by law. Electronically signed by: Alberto Alexander M.D. 01/12/2020 7:23 AM
[2020-01-12] MEDS: METOPROLOL TARTRATE 25 MG TAB PO SCH ×2 (07:28→20:15)
[2020-01-12] MEDS: ASPIRIN 81 MG ECTAB PO SCH (08:47)
[2020-01-12] MEDS: OLMESARTAN MEDOXOMIL 20 MG TAB PO SCH (08:47)
[2020-01-12] MEDS: CEROVITE ADV FORMULA TAB PO SCH (08:47)
[2020-01-12 08:48] LABS: BUN Creatinine Ratio 17.3 (10-20); Calcium 8.5 mg/dl (8.5-10.1); Creatinine Clr Calc Pharmacy 43.5 ml/min; Est GFR (African American) 97.2; Est GFR (Non-African American) 83.8; Magnesium 1.9 mg/dl (1.8-2.4); Potassium 3.5 mmol/L (3.5-5.1)
[2020-01-12] MEDS: HEPARIN SOD 5,000 UNIT/0.5 ML VIAL SQ SCH ×2 (08:48→21:28)
[2020-01-12 08:53] LABS: Ferritin 276.4 ng/ml (8-388)
--- NOTE | 2020-01-12 09:44 | Neurology Consultation ---
Date of Consultation January 12, 2020 Assessment & Plan (1) Weakness: (2) Cognitive impairment: (3) Gait disturbance: (4) HTN (hypertension): (5) Weight loss: patient has a subacute course ( about 9 months) of cognitive impairment and generalized sense of weakness. Overall her cognitive impairment is fairly mild and she can converse well and is still fairly functional. She does have a history of anxiety and depression and I wonder if anxiety contributes to her perception that she is not remembering well. She does not have any focal neurologic deficits on exam as far as weakness, sensory, or reflexes. Her general sense of weakness is more when she gets up and tries to walk. Her back hurts and she has bad osteoarthritis of the knees. This contributes to her gait disturbance also. She has lost considerable weight and has no appetite. Laboratory tests have not shown any evidence of inflammatory disease or active myopathy. MRI of the brain shows no acute stroke and some aging changes with atrophy and old small vessel ischemic disease. She is on 81 milligram aspirin She may be having some nonspecific myoclonic jerks her restlessness but there are no other neurologic deficits seen on exam, meningeal signs, or encephalopathy. Recommendations: 1. Agree with physical therapy for gait and limb strengthening. 2. this patient will likely need a walker to avoid falling. 3. Consider EMG and nerve conduction studies of the legs and right upper extremity as an outpatient. I will evaluate for polyneuropathy, distal mono neuropathy in the right arm, and radiculopathy. 4. Continue 81 milligram aspirin tablet daily. She does have risk factors for stroke including hypertension, dyslipidemia, and impaired glucose tolerance. She is a former smoker. 5. she may benefit from neuropsychological testing formally as an outpatient to evaluate for dementia versus pseudodementia. I see no need for initiating any medication for memory at this time. Overall, I spent a total of 100 minutes with this case including review of records, review of MRI films, direct evaluation the patient at bedside, and discussion of the case with the patient and RN at bedside, and Dr. Arndt, including differential diagnosis and treatment options. History of Present Illness Reason for Consultation: patient is an 84-year-old, who I was asked to see at the request of Dr. Rizzo, for neurologic consultation regarding weakness and other issues. Requesting Physician: Dr. Rizzo Attending Physician: Juan Carlos Arndt MD History of Present Illness patient has a longstanding history of osteoarthritis and a history of hypertension. She has had pernicious anemia with vitamin B12 deficiency and vitamin-D in the past. There is a history of impaired glucose tolerance but she does not have diabetes or heart disease. She has never had a stroke. She has been on 81 milligram aspirin tablet daily. Apparently there is a long history of anxiety and depression as well. The patient believes her problem started at the end of 2018. she was hospitalized in April for an infection and she ended up having acute hyponatremia, severe dehydration, and a pneumonia. she stated that she fell towards the end of that hospitalization slipping on a wet floor and striking her left orbit. She required stitches. Following this She was given metoprolol for blood pressure and it gave her fatigue, night sweats, and memory loss. She has trouble with word finding and coming up with names. This was discontinued. There is a note from August of [address] Zuleta, her primary care physician, who states that she has had memory problems as well as fatigue and balance issues. She has bilateral advanced arthritic knees. She claims that she fell twice this summer losing her balance. She did not hit her head. Tramadol given for pain gave her confusion and she stopped this. She was admitted to the emergency room on January 09 for weakness. Blood pressure was 207/112, temperature 37.1, pulse 94, respiratory rate 20, and O2 saturation 97 percent. She was described as having a normal neurologic examination. Laboratory studies since admission are largely unremarkable. Her sodium was 129 and glucose 115 but the rest of the chemistry profile was normal. CK was 80, sed rate 2, CBC unremarkable, TSH 0.7, random cortisol 32, and Lyme antibody titer negative. Urinalysis and Covid-19 test were negative and a chest x-ray was unremarkable. Magnesium was normal at 1.9 The patient had an MRI of the brain which showed [id number] atrophy consistent with age and mild nonspecific old small vessel ischemic changes, again consistent with age. There is no stroke. I reviewed these films. In discussing with the patient her history and what is really bothering her now, she feels that she has a sense of weakness in general but particularly in the legs. Each leg is about the same but there is no numbness or pain in the legs. She has no incontinence of urine. She does have some low back pain and feels that her balance is poor. Her appetite has been decreased and she has lost weight as much as 20 pounds this year. She has twitching and movements of the legs randomly but no cramps. Her arms have good strength she feels and there are no cramps or twitching in the arms. She has no neck pain. She does have some numbness in the 4th and 5th digits of the right hand. She is quite concerned with her mom memory is far as word-finding difficulties and remembering names. Allergies Allergy/AdvReac Type Severity Reaction Status Date / Time Penicillins Allergy Mild Unknown Verified 01/10/20 23:23 acetaminophen Allergy Unknown Verified 01/10/20 23:23 [From Tylenol-Codeine] aloe vera Allergy Unknown Verified 01/10/20 23:23 amlodipine [From Norvasc] Allergy Unknown Verified 01/10/20 23:23 ciprofloxacin Allergy Anaphylaxis Verified 01/10/20 23:23 codeine Allergy Unknown Verified 01/10/20 23:23 [From Tylenol-Codeine] meloxicam Allergy Unknown Verified 01/10/20 23:23 pseudoephedrine Allergy Unknown Verified 01/10/20 23:23 [From Sudafed] pantoprazole AdvReac Intermediate Gastrointestinal Verified 01/10/20 23:23 Upset Home Medications Home Medications Medication Instructions Recorded Confirmed Type acetaminophen 325 mg capsule 325 mg PO Q6H PRN 10/17/18 01/10/20 History aspirin 81 mg tablet,delayed 81 mg PO QAM tab 10/17/18 01/10/20 History release biotin 5 mg capsule 5 mg PO QAM cap 10/17/18 01/10/20 History multivit with 1 tab PO QAM 03/04/19 01/10/20 History mtdjbrgj-ipfs-TZ-lutein 8 mg iron-400 mcg-300 mcg tablet syringe with needle 3 mL 25 x 5/8" #6 ea 03/05/19 10/16/19 Rx albuterol sulfate [Ventolin HFA] 1 puffs INH Q6H PRN #8 gm 04/05/19 01/10/20 Rx cyanocobalamin (vitamin B-12) 1,000 mcg IM .EVERY 2 WEEKS 04/05/19 01/10/20 History olmesartan 20 mg tablet 20 mg PO QAM #90 tab 08/28/19 01/10/20 Rx amitriptyline 25 mg tablet 50 mg PO HS #180 tab 09/10/19 01/10/20 Rx diphenoxylate-atropine 2.5 2 tab PO QID PRN #180 tab 10/05/19 01/10/20 Rx mg-0.025 mg tablet ergocalciferol (vitamin D2) 1,250 50,000 units PO MONTHLY #3 cap 10/05/19 01/10/20 Rx mcg (50,000 unit) capsule nitrofurantoin macrocrystal 100 mg 200 mg PO .COMPLEX #30 cap 10/23/19 01/10/20 Rx capsule metoprolol tartrate 25 mg tablet 25 mg PO BID 30 Days #60 tab 11/13/19 01/10/20 Rx tramadol 50 mg tablet 50 mg PO Q6H PRN #20 tab 12/11/19 01/10/20 Rx diazepam 5 mg tablet 10 mg PO AC PRN #20 tab 12/19/19 01/10/20 Rx Patient History Medical History Acute hyponatremia Diarrhea associated with pseudomembranous colitis Fall Generalized osteoarthritis of multiple sites Hyperlipidemia Hypokalemia Hypotension Impaired fasting glucose Irritable bowel syndrome Knee pain, bilateral Osteopenia Pernicious anemia Vasovagal episode Vitamin B12 deficiency Vitamin D deficiency Surgical History H/O breast surgery breast enlargement history Hx of tonsillectomy Family History Father , age 78 of heart issues Congestive heart failure Aunt Breast cancer Atrial fibrillation Lung cancer Denies family history of Ovarian cancer Prostate cancer Colorectal cancer Social History Smoking Status: Former smoker Second Hand Exposure: Yes; Hx Alcohol Use: Yes Alcohol type: wine Hx Substance Use: No Preferred Language: Mauritian Communication Ability: Effective Visual Impairment: No Limitations Hearing Ability: Normal Cytogenetic Technologist Required: No Beliefs That Will Affect Care: None marital status: Current Living Situation: Spouse current occupational status: retired 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 Feels Safe at Home: Yes Childhood Exposure to Second-Hand Smoke: Yes Dental Care, Regularly: Yes Physical Activity Frequency: Does not Exercise Seatbelt Use: always Sunscreen Use: Yes Review of Systems Constitutional: + fatigue, + weakness and + weight loss; no fever Eyes: + worsening vision; no diplopia and no eye pain Ear, Nose, Mouth, Throat: no ear pain, no tinnitus, no hearing loss, no dizziness, no hoarseness and no dysphagia Respiratory: no cough and no dyspnea Cardiovascular: no chest pain, no palpitations and no lightheadedness Gastrointestinal: no abdominal pain, no nausea and no vomiting Genitourinary: no dysuria, no urinary frequency and no urinary incontinence Musculoskeletal: + back pain; no neck pain, no radicular pain, no joint pain and no myalgia Integumentary: no rash and no lesions Neurologic: + generalized weakness, + numbness, + abnormal movements and + memory loss; no gait abnormality, no localized weakness, no tingling, no tremor(s), no headache(s), no abnormal speech and no confusion Psychiatric: + depression, + anxiety and + difficulty concentrating; no irritability, no confusion and no hallucinations Endocrine: + fatigue; no flushing Hematologic / Lymphatic: no easy bleeding and no easy bruising Allergy / Immunological: no urticaria and no problem reported Exam (Neuro) Physical Exam: The patient is right-handed. The patient is awake, alert, and attentive. Speech is normal without any aphasia or dysarthria. She can name objects, repeat phrases, and has normal spontaneous speech. Mentation and thought processes are reasonable to conversation, with orientation to person, place and time, and normal fund of knowledge. Attention and concentration are normal. Mood and affect are normal and appropriate. General appearance and grooming are normal. Short term memory is hesitant at times but very reasonable to conversation. Long-term memory seems fairly intact. The discs are sharp with positive venous pulsations bilaterally. There are no exudates, hemorrhages, or blood vessel changes seen. Pupils are 4 mm bilaterally and reactive to light. Extraocular eye muscles are intact without nystagmus. Visual acuity and visual treadwell seem normal grossly to confrontation. There are no deficits to sensation in the face in all 3 distributions of the fifth cranial nerve bilaterally. Corneal reflexes are positive bilaterally. Facial strength and symmetry was normal bilaterally. Hearing seems normal to whisper and finger rub bilaterally. Palate moves well without asymmetry. There is normal sternocleidomastoid and trapezius (shoulder shrug) strength bilaterally. Tongue is midline with good strength bilaterally. Neck has a full range of motion without discomfort. There are no cervical bruits bilaterally. There are no cranial or ocular bruits. Heart is without murmur. There is a regular rhythm and rate. Cervical, thoracic, and lumbar spine are nontender to palpation. Gait is narrow based, With arm swing but is very unstable and cautious. She needs the assistance of 1. stance with feet together is unstable as well. She has significant bilateral knee deformity and complains of knee and back pain when she tries to walk stating that her legs are weak. With outstretched arms there is no drift. There are no resting, postural, or action tremors. There is no ataxia with finger to nose testing. There is good facility in the hands. I do note some occasional myoclonic leg jerks of her trunk and legs. It is more restlessness at times. Motor strength is 5/5 diffusely in the arms bilaterally including deltoids, biceps, triceps, brachioradialis, wrist flexors and extensors, cement railroad car loader, and intrinsic hand muscles. Motor strength is 5/5 diffusely in the legs bilaterally including hip flexors, quadriceps, hamstrings, gastrocnemius, tibialis anterior, tibialis posterior, and Peroneii muscles. Toe extensors are normal and there is good bulk in the extensor digitorum brevis muscles bilaterally. I do not note any specific muscle weakness. The limbs have good tone without rigidity or spasticity. She is quite thin in all of her musculature throughout particularly distally. She has no muscle tenderness to palpation Sensory examination is intact to touch and pin throughout all 4 limbs diffusely. Reflexes are 2/4 in the biceps, triceps, brachioradialis, and quadriceps tendons bilaterally. Achilles tendon reflexes are 1/4 bilaterally. There is no clonus bilaterally. Toes are downgoing with plantar stimulation bilaterally. Peripheral pulses are present and of normal quality distally in all 4 limbs. There is no peripheral edema noted in the limbs. Results & Data ([facility]) Vital Signs (Past 12 Hours) Vital Signs Temp Pulse Resp BP BP Pulse Ox 01/12/20 07:48 36.9 C 65 20 173/79 H 98 01/11/20 23:15 36.7 C 85 20 166/90 H 97 Diagnostic Findings MRI OF THE BRAIN WITHOUT AND WITH IV CONTRAST CLINICAL HISTORY: b/l leg weakness, mental status changes COMPARISON STUDY: No previous studies for comparison. TECHNIQUE: Utilizing a 1.5 [place] magnet and dedicated coil, multiplanar, multiecho imaging of the brain was performed pre and postcontrast administration. IV administration of 3.5 mL of Gadavist contrast was uneventful. FINDINGS: There are no foci of restricted diffusion to suggest acute infarct. No acute intracranial hemorrhage, midline shift or mass effect is present. There is moderate atrophy. Ventricular system is unremarkable. There is no intracranial mass or pathologic enhancement. White matter T2 hyperintense foci suggest mild small vessel disease. Calvarial signal is normal. Orbits are unremarkable. IMPRESSION: 1. No acute intracranial findings. 2. No intracranial mass or pathologic enhancement. 3. Moderate atrophy and mild small vessel disease. ACT 112: Negative or not required by law. Electronically signed by: Alberto Alexander M.D. 01/12/2020 7:23 AM PG Care Time/CCT Total # of Minutes Spent Total Time Spent with Patient: Total time spent is greater than 50% in co ordination of care (as documented) at patient's floor/unit and/or counseling patient: Coding Level of Care Code 86576 Initial Inpt Care Lvl 3 Diagnoses Weakness R53.1 Cognitive impairment R41.89 Gait disturbance R26.9 HTN (hypertension) I10 Hypertension type: unspecified Weight loss R63.4 Time Spent (min) 100 Comment Add [id number] to the [id number] (1) HTN (hypertension) Hypertension type: unspecified Qualified Code(s): I10 - Essential (primary) hypertension
--- NOTE | 2020-01-12 13:50 | Hospitalist Progress Note ---
Date of Service January 12, 2020 Assessment & Plan (1) Weakness: Etiology uncertain. Thus far ESR, CRP, TSH, cortisol, CPK, CBC, CXR, u/a, Lyme Ab's -- all normal/negative. B12 level in October 2019 was >1000. COVID-19 PCR negative. MRI brain on 01/10 with only small vessel changes. - Anaplasmosis DNA test & blood cultures pending. - Discussed with Dr. Valdez on 01/11; no focal weakness on exam. Will do EMG as outpatient, but no indication of neurologic process. - PT/OT/CM for possible rehab. (2) Acute hyponatremia: Dy=885 at presentation, and following IV hydration there was no change with repeat of 129. Range has been 125-138 over the last 8 months. - Urine osm quite high, urine Na >100, and serum osm 269 pointing toward SIADH. - Will recheck tomorrow to try to confirm. (3) Diarrhea: Patient reported diarrhea to the admitting MD but she has had no diarrhea since admission. Has h/o IBS. - Monitor (4) HTN (hypertension): BPs quite high since admission. - Continue metoprolol & olmesartan. - Increase olmesartan to 40 mg PO daily (5) Vitamin B12 deficiency: Level in October >1000. H/o pernicious anemia. (6) Anxiety disorder: Chronic. - Continue home Valium 10mg PO AC PRN (7) Severe protein-calorie malnutrition: 7+ pounds of weight loss x 1 month. - Added MVI, Boost BID - Looking for underlying cause as above (8) DVT prophylaxis: Heparin 5000 units SQ Q12h Admission and Anticipated Discharge Date Admission Date: January 11, 2020 Subjective Tired today after the sedative for the MRI. However, wakes up easily without issue. Reports no fevers/chills, chest pain, shortness of breath, abdominal pain, nausea, or vomiting. Physical Exam Constitutional: WD/WN, vitals as above Eyes: EOM intact bilaterally; no conjunctival abnormality ENMT: external ear and nose normal, oropharynx normal Neck: trachea midline, no thyromegaly normal visual inspection Respiratory: normal respiratory effort, lungs clear to auscultation no respiratory distress Cardiovascular: RRR, no murmur, no edema Gastrointestinal (Abdomen): Inspection/Auscultation: abdomen normal to inspection; abdomen not distended Musculoskeletal: no cyanosis or clubbing, extremities motor strength 5/5 Skin: no rashes, warm and dry Neurologic: moves all extremities and awake Psychiatric: Orientation: alert, oriented to person and cooperative Results & Data Results & Data ([facility]) Vital Signs (Past 12 Hours) Vital Signs Temp Pulse Resp BP Pulse Ox 01/12/20 07:48 36.9 C 65 20 173/79 H 98 PG Care Time/CCT Total # of Minutes Spent Total Time Spent with Patient: Total time spent is greater than 50% in coordination of care (as documented) at patient's floor/unit and/or counseling patient: Coding Level of Care Code 64444 Subseq Hosp Care Lvl 3 Diagnoses Weakness R53.1 Acute hyponatremia E87.1 Diarrhea R19.7 Diarrhea type: unspecified type HTN (hypertension) I10 Hypertension type: unspecified Vitamin B12 deficiency E53.8 Anxiety disorder F41.9 Anxiety disorder type: unspecified anxiety disorder Severe protein-calorie malnutrition E43 DVT prophylaxis Z29.9 (1) Diarrhea Diarrhea type: unspecified type Qualified Code(s): R19.7 - Diarrhea, unspecified (2) HTN (hypertension) Hypertension type: unspecified Qualified Code(s): I10 - Essential (primary) hypertension (3) Anxiety disorder Anxiety disorder type: unspecified anxiety disorder Qualified Code(s): F41.9 - Anxiety disorder, unspecified
--- NOTE | 2020-01-12 17:17 | CT Scan Report ---
CT chest wo con CLINICAL HISTORY: SIADH. Possible occult malignancy COMPARISON STUDY: Chest x-ray dated 01/10/2020 CT DOSE: 396.99 mGy.cm TECHNIQUE: CT of the thorax was performed from the thoracic inlet to the lung bases. Images are revi ewed in the axial, sagittal, and coronal planes. IV contrast was not administered for this examinatio n. A dose lowering technique was utilized adhering to the principles of ALARA. FINDINGS: Thyroid: Imaged portions of the thyroid gland are normal in appearance. Thoracic aorta: There is ectasia of the ascending thoracic aorta which measures 36 mm. Heart: There is a trace pericardial effusion. There are coronary artery calcifications. Lungs and pleural spaces: There is pulmonary emphysema. There is basilar atelectasis. There are no ar eas of parenchymal consolidation to indicate a pneumonia. There is a 4 mm right middle lobe perifissu ral nodule. This is a very low suspicion Mediastinum: There is no evidence of pathologic mediastinal lymphadenopathy Shabnam: There is no evidence of pathologic hilar adenopathy given the limitations of a noncontrast stud y. Axilla: There are hyperdense right axillary lymph nodes, possibly secondary to silicon breast implant rupture Upper abdomen: Partially visualized upper abdominal viscera is within normal limits. Skeletal structures: No destructive skeletal lesions are visualized. There are bilateral calcified si kris breast implants. There is suspected right-sided implant rupture. On the right there is a 3 cm a xillary mass which may represent extravasated silicon. On the left there is a implant bulge/rupture. IMPRESSION: 1. Pulmonary emphysema 2. 4 mm very low suspicion right middle lobe perifissural nodule. In a low-risk patient, no further f ollow-up is recommended. 3. Suspected right breast implant rupture. There is a 3 cm axillary mass which may represent extravas ated silicon. There are hyperdense right axillary lymph nodes, possibly related to implant rupture. 4. Left breast implant bulge/rupture. ACT 112: Negative or not required by law. Electronically signed by: Gary Solorio M.D. 01/12/2020 5:16 PM
--- NOTE | 2020-01-12 17:29 | CT Scan Report ---
CT abd pelvis oral con only CLINICAL HISTORY: SIADH. Possible pulmonary malignancy COMPARISON STUDY: No previous studies for comparison. FINDINGS: The patient was scanned following administration of dilute oral contrast. No intravenous co ntrast was administered. A dose reduction technique was utilized according to the principles of ALARA . Images of the lung bases reveal bilateral calcified breast implants with a possible implant bulge/rup ture on the left and a possible implant rupture on the right There are basilar atelectatic changes. There is a small pericardial effusion. No hepatic masses are visualized in this noncontrast study. No gallbladder abnormalities are visualized. No splenic masses are visualized. No pancreatic masses are delineated. Left renal hypodensities likely represent cysts. There is no hydronephrosis. No ureteral calculi are visualized. There are no transition zones indicate bowel obstruction. There is colonic diverticulosis. There is n o evidence of acute diverticulitis. There are no findings to indicate acute appendicitis. There is mi ld bowel wall thickening involving the descending colon and proximal sigmoid. There is no evidence of abdominal aortic aneurysm. There is no free intraperitoneal air. There is no ascites. There is no evidence of pathologic adenopathy. There are no abnormal pelvic masses. No destructive skeletal lesions are visualized. Is a scoliosis. Arthritic changes are present within the hips. IMPRESSION: 1. No evidence of occult malignancy given the limitations of a noncontrast study 2. Bilateral breast implant rupture/bulge. 3. No evidence of bowel obstruction. No evidence of free air 4. Mild bowel wall thickening involving the descending colon and proximal sigmoid suggestive of a non specific colitis. ACT 112: Negative or not required by law. Electronically signed by: Gary Solorio M.D. 01/12/2020 5:27 PM
[2020-01-12] MEDS ORDERED: DIPHENOXYLATE/ATROPINE 2.5/0.025MG TAB PO PRN (18:21)
[2020-01-12] MEDS: AMITRIPTYLINE HCL 50 MG TAB PO SCH (20:14)
[2020-01-13 07:49] LABS: Hematocrit (blood only) 34.3 % (37-47); Hemoglobin 11.4 g/dL (12.0-16.0); Mean Corpuscular Hemoglobin 31.1 pg (25-34); Mean Corpuscular Hgb Conc 33.2 g/dL (32-36); Mean Corpuscular Volume 93.5 fL (80-100); Mean Platelet Volume 9.7 fL (7.4-10.4); Platelet Count 319 K/uL (130-400); RDW Standard Deviation 40.8 fL (36.4-46.3); Red Blood Count 3.67 M/uL (4.2-5.4); White Blood Count 4.91 K/uL (4.8-10.8)
[2020-01-13] MEDS: METOPROLOL TARTRATE 25 MG TAB PO SCH ×2 (07:55→20:21)
[2020-01-13] MEDS: CEROVITE ADV FORMULA TAB PO SCH (07:56)
[2020-01-13] MEDS: OLMESARTAN MEDOXOMIL 40 MG TAB PO SCH (07:56)
[2020-01-13] MEDS: HEPARIN SOD 5,000 UNIT/0.5 ML VIAL SQ SCH ×2 (07:56→20:21)
[2020-01-13] MEDS: ASPIRIN 81 MG ECTAB PO SCH (07:56)
[2020-01-13 08:20] LABS: Albumin Level 3.5 gm/dl (3.4-5.0); BUN Creatinine Ratio 11.2 (10-20); Calcium 9.3 mg/dl (8.5-10.1); Creatinine Clr Calc Pharmacy 37.9 ml/min; Est GFR (African American) 92.9; Est GFR (Non-African American) 80.1; Potassium 3.3 mmol/L (3.5-5.1)
[2020-01-13 08:30] LABS: Albumin Globulin Ratio 1.2 (0.9-2); Bilirubin,Total 0.7 mg/dl (0.2-1); Globulin 2.9 gm/dl (2.5-4.0); Phosphorus 2.8 mg/dl (2.5-4.9); Total Protein 6.4 gm/dl (6.4-8.2)
--- NOTE | 2020-01-13 16:08 | Hospitalist Progress Note ---
Date of Service January 13, 2020 Assessment & Plan (1) Weakness: Etiology uncertain. Thus far ESR, CRP, TSH, cortisol, CPK, CBC, CXR, u/a, Lyme Ab's -- all normal/negative. B12 level in October 2019 was >1000. COVID-19 PCR negative. MRI brain on 01/10 with only small vessel changes. - Anaplasmosis DNA test & blood cultures pending. - Discussed with Dr. Valdez on 01/11; no focal weakness on exam. Will do EMG as outpatient, but no indication of neurologic process. - PT/OT/CM for possible rehab. Stable today. Does not want to do rehab. Will work with home PT/OT. (2) Acute hyponatremia: Zs=238 at presentation, and following IV hydration there was no change with repeat of 129. Range has been 125-138 over the last 8 months. - Urine osm quite high, urine Na >100, and serum osm 269 pointing toward SIADH; however, urine osms on 01/12 were appropriately low. - More likely low solute ("tea and toast") hyponatremia. Encourage good oral intake. (3) Diarrhea: Patient reported diarrhea to the admitting MD but she has had no diarrhea since admission. Has h/o IBS. - Monitor (4) HTN (hypertension): BPs quite high since admission. Better today at 160/75 after increasing olmesartan. - Continue metoprolol & olmesartan. - Increase olmesartan to 40 mg PO daily (5) Vitamin B12 deficiency: Level in October >1000. H/o pernicious anemia. (6) Anxiety disorder: Chronic. - Continue home Valium 10mg PO AC PRN (7) Severe protein-calorie malnutrition: 7+ pounds of weight loss x 1 month. - Added MVI, Boost BID - Looking for underlying cause as above (8) DVT prophylaxis: Heparin 5000 units SQ Q12h Admission and Anticipated Discharge Date Admission Date: January 11, 2020 Subjective Reports concern about inner arm burning pain overnight. Otherwise, also feels the left side of her body is more cramping today. Reports no fevers/chills, chest pain, shortness of breath, abdominal pain, nausea, or vomiting. Physical Exam Constitutional: WD/WN, vitals as above Eyes: EOM intact bilaterally; no conjunctival abnormality ENMT: external ear and nose normal, oropharynx normal Neck: trachea midline, no thyromegaly normal visual inspection Respiratory: normal respiratory effort, lungs clear to auscultation no respiratory distress Cardiovascular: RRR, no murmur, no edema Gastrointestinal (Abdomen): Inspection/Auscultation: abdomen normal to inspection; abdomen not distended Musculoskeletal: no cyanosis or clubbing, extremities motor strength 5/5 Skin: no rashes, warm and dry Neurologic: moves all extremities and awake Psychiatric: Orientation: alert, oriented to person and cooperative Results & Data Results & Data ([facility]) Vital Signs (Past 12 Hours) Vital Signs Temp Pulse Resp BP BP Pulse Ox 01/13/20 15:14 37.0 C 75 18 161/76 H 98 01/13/20 07:28 36.8 C 71 20 140/83 96 PG Care Time/CCT Total # of Minutes Spent Total Time Spent with Patient: Total time spent is greater than 50% in coordination of care (as documented) at patient's floor/unit and/or counseling patient: Coding Level of Care Code 08817 Subseq Hosp Care Lvl 2 Diagnoses Weakness R53.1 Acute hyponatremia E87.1 Diarrhea R19.7 Diarrhea type: unspecified type HTN (hypertension) I10 Hypertension type: unspecified Vitamin B12 deficiency E53.8 Anxiety disorder F41.9 Anxiety disorder type: unspecified anxiety disorder Severe protein-calorie malnutrition E43 DVT prophylaxis Z29.9 (1) Diarrhea Diarrhea type: unspecified type Qualified Code(s): R19.7 - Diarrhea, unspecified (2) HTN (hypertension) Hypertension type: unspecified Qualified Code(s): I10 - Essential (primary) hypertension (3) Anxiety disorder Anxiety disorder type: unspecified anxiety disorder Qualified Code(s): F41.9 - Anxiety disorder, unspecified
[2020-01-13] MEDS: AMITRIPTYLINE HCL 50 MG TAB PO SCH (20:21)
[2020-01-14 07:39] LABS: BUN Creatinine Ratio 12.3 (10-20); Calcium 8.6 mg/dl (8.5-10.1); Creatinine Clr Calc Pharmacy 36.9 ml/min; Est GFR (African American) 89.8; Est GFR (Non-African American) 77.4; Potassium 3.4 mmol/L (3.5-5.1)
[2020-01-14] MEDS: METOPROLOL TARTRATE 25 MG TAB PO SCH (08:16)
[2020-01-14] MEDS: OLMESARTAN MEDOXOMIL 40 MG TAB PO SCH (08:16)
[2020-01-14] MEDS: CEROVITE ADV FORMULA TAB PO SCH (08:16)
[2020-01-14] MEDS: ASPIRIN 81 MG ECTAB PO SCH (08:16)
[2020-01-14] MEDS: HEPARIN SOD 5,000 UNIT/0.5 ML VIAL SQ SCH (08:17)
--- NOTE | 2020-01-14 18:23 | Discharge Summary ---
Date of Service January 14, 2020 Admission HPI Per Admitting Provider Elsa Felton is an 84yo female with history of HTN, HLP, Pernicious anemia presenting with 2 days of progressive diffuse weakness and fatigue. Patient states that she has been unable to get out of bed. She reports increased frequency of muscle spasms in her legs, arms and hands and the feeling of "feathers going up and down my legs". These sensations have been present since patient had a fall in November but have become more frequent over the last two days. She thinks they may be secondary to having a pinched nerve. Additionally she is complaining of 2-3 days of lower abdominal pain as well as frequent episodes of watery diarrhea. She had one episode of vomiting. She denies fever/chills/CP/SOB/cough/dysuria/urinary retention or incontinence. ER Course: Hydrocortisone, Metoprolol, NSS Principal Diagnosis General weakness NOS Discharge Exam Constitutional WD/WN, vitals as above Eyes EOM intact bilaterally; no conjunctival abnormality ENMT external ear and nose normal, oropharynx normal Neck trachea midline, no thyromegaly normal visual inspection Respiratory normal respiratory effort, lungs clear to auscultation no respiratory distress Cardiovascular RRR, no murmur, no edema Gastrointestinal (Abdomen) Inspection/Auscultation: abdomen normal to inspection; abdomen not distended Musculoskeletal no cyanosis or clubbing, extremities motor strength 5/5 Skin no rashes, warm and dry Neurologic moves all extremities and awake Psychiatric Orientation: alert, oriented to person and cooperative Discharge Data Allergies Allergy/AdvReac Type Severity Reaction Status Date / Time Penicillins Allergy Mild Unknown Verified 01/10/20 23:23 acetaminophen Allergy Unknown Verified 01/10/20 23:23 [From Tylenol-Codeine] aloe vera Allergy Unknown Verified 01/10/20 23:23 amlodipine [From Norvasc] Allergy Unknown Verified 01/10/20 23:23 ciprofloxacin Allergy Anaphylaxis Verified 01/10/20 23:23 codeine Allergy Unknown Verified 01/10/20 23:23 [From Tylenol-Codeine] meloxicam Allergy Unknown Verified 01/10/20 23:23 pseudoephedrine Allergy Unknown Verified 01/10/20 23:23 [From Sudafed] pantoprazole AdvReac Intermediate Gastrointestinal Verified 01/10/20 23:23 Upset Consultations 01/10/20 23:52 ED Decision to Admit Stat 01/11/20 18:47 Consult Neurology Routine Ordered Studies 01/11/20 18:40 MR brain wo/w con Routine 01/12/20 14:01 CT chest wo con Routine 01/12/20 14:04 CT abd pelvis oral con only Routine Hospital Course (1) Weakness: Etiology uncertain. Thus far ESR, CRP, TSH, cortisol, CPK, CBC, CXR, u/a, Lyme Ab's -- all normal/negative. B12 level in October 2019 was >1000. COVID-19 PCR negative. MRI brain on 01/10 with only small vessel changes. - Anaplasmosis DNA test & blood cultures pending. - Discussed with Dr. Valdez on 01/11; no focal weakness on exam. Will do EMG as outpatient, but no indication of acute neurologic process. - PT/OT/CM to set up home PT. Will see Dr. Valdez in clinic. (2) Acute hyponatremia: Ut=409 at presentation, and following IV hydration there was no change with repeat of 129. Range has been 125-138 over the last [address] c/a/p looking for any sign of cancer was negative. - Urine osm quite high, urine Na >100, and serum osm 269 pointing toward SIADH; however, urine osms on 01/12 were appropriately low. - More likely low solute ("tea and toast") hyponatremia. Encourage good oral intake. - Improved by discharge to 137. Encourage Boost shakes. (3) Diarrhea: Patient reported diarrhea to the admitting MD but she has had no diarrhea since admission. Has h/o IBS. - C. diff negative. Used Lomotil with good effect. (4) HTN (hypertension): BPs quite high since admission. - Continue metoprolol & olmesartan. (5) Vitamin B12 deficiency: Level in October >1000. H/o pernicious anemia. (6) Anxiety disorder: Chronic. - She was on Valium for years, but was weaned off. Requested further diazepam on discharge, but I did discuss with PCP and we are in agreement that avoiding benzodiazepine in an 84 yo is preferable. (7) Severe protein-calorie malnutrition: 7+ pounds of weight loss x 1 month. - Added MVI, Boost BID - No underlying cause noted. (8) DVT prophylaxis: Heparin 5000 units SQ Q12h Total Time Total Time Spent Total Time Spent (In Minutes): 35 Discharge Plan Discharge Items Patient Disposition: Home - Home Health Services Reason For Visit: WEAKNESS Discharge Diagnosis: Weakness Activity: Resume your previous activity Non-emergency contact: Primary Care Provider and Neurologist Call non-emergency contact if: your symptoms worsen Follow-up/Referrals: Cali Zuleta MD [Primary Care Provider] - 01/17/20 3:15 pm (You have an appt with Iris De Souza, 01/16 at 3:15pm. Please arrive 15 minutes prior to your appt time. It is important that you keep this appt, if it does not fit your schedule please call [phone] to reschedule. ) Manpreet Valdez MD [Physician] - 02/19/20 1:00 pm (You are schedule for EEG in Dr. Valdez's office 02/18 at 1pm. If this appt does not fit your schedule please call [phone] to reschedule. ) Diet: Regular Addtl Attending Provider Instructions: Ms. Felton, You were admitted to the hospital for weakness and neurologic concerns. Fortunately, Dr. Valdez was able to see you and did not find anything wrong with you in terms of a stroke or major neurologic issue. He has some further testing to try to do in the clinic (a test called an EMG). Dr. Zuleta may also send you for some further cognitive testing that can be done at [facility] called neuro-cognitive testing. You were feeling better on discharge, so this is worth discussing with him to see if you feel it is still necessary. I discussed your question about Valium (diazepam) with Dr. Zuleta. We both feel this is not a great medication for you to take on a regular basis. It can actually cause memory issues, trouble with train of thought, and even things like falls. Please follow up with Dr. Zuleta in the next week or two and then you can schedule your follow up with Dr. Valdez soon after. Pending Studies at Discharge: No Stand-Alone Forms: My [facility], Smoking Cessation Medications and DC Order Prescriptions: Continued (DME) BD Luer-French Syringe 3 mL 25 x 5/8" syringe See Dose Instructions .ROUTE .MEDSUPPLY Qty: 6 RF: 3 olmesartan [Benicar] 20 mg tablet 20 mg PO QAM Qty: 90 RF: 3 amitriptyline 25 mg tablet 50 mg PO HS Qty: 180 RF: 3 ergocalciferol (vitamin D2) 1,250 mcg (50,000 unit) capsule 50,000 units PO MONTHLY Qty: 3 RF: 3 diphenoxylate-atropine [Lomotil] 2.5-0.025 mg tablet 2 tab PO QID PRN (Reason: diarrhea) Qty: 180 RF: 5 nitrofurantoin macrocrystal 100 mg capsule 200 mg PO .COMPLEX Qty: 30 RF: 0 metoprolol tartrate 25 mg tablet 25 mg PO BID 30 Days Qty: 60 RF: 5 diazepam 5 mg tablet 10 mg PO AC PRN (Reason: muscle spasm) Qty: 20 RF: 0 Centrum Silver Women 8 mg iron-400 mcg-300 mcg tablet 1 tab PO QAM RF: 0 biotin 5 mg capsule 5 mg PO QAM RF: 0 aspirin 81 mg tablet,delayed release (DR/EC) 81 mg PO QAM RF: 0 acetaminophen [Tylenol] 325 mg capsule 325 mg PO Q6H PRN (Reason: pain/fever) RF: 0 cyanocobalamin (vitamin B-12) 1,000 mcg/mL kit 1,000 mcg IM .EVERY 2 WEEKS RF: 0 albuterol sulfate [Ventolin HFA] 90 mcg/actuation HFA aerosol inhaler 1 puffs INH Q6H PRN (Reason: shortness of breath or wheezing) Qty: 8 RF: 0 Discontinued tramadol 50 mg tablet 50 mg PO Q6H PRN (Reason: pain) Qty: 20 RF: 0 Discharge Orders: Discharge Order (Routine); Ordered 01/14/20 Ordered By: Juan Carlos Arndt Admission Data Admit Date/Time: 01/11/20 01:13 Attending Provider: Juan Carlos Arndt Admit Provider: Keren Choi Primary Care Provider: Cali Zuleta Other Providers: Manpreet Valdez ; Juan Carlos Arndt Other Interventions: Discharge Summary Assessment (RN) Last Done: 01/14/20 14:20 Coding Level of Care Code D/C Day Management >30 mins Diagnoses Weakness R53.1 Acute hyponatremia E87.1 Diarrhea R19.7 Diarrhea type: unspecified type HTN (hypertension) I10 Hypertension type: unspecified Vitamin B12 deficiency E53.8 Anxiety disorder F41.9 Anxiety disorder type: unspecified anxiety disorder Severe protein-calorie malnutrition E43 DVT prophylaxis Z29.9
== END 2020-01-14 15:00 | disposition home health service (06) | DRG 643 ==
LOC: ED 22:34 → 2W 01-11 01:13 → SUATTDRO 01-11 01:13 → 2W 01-11 02:19

== ENCOUNTER 2024-01-14 11:03 | Inpatient (IN) ==
--- NOTE | 2024-01-14 11:24 | Emergency Department Note ---
Impression & Plan Acute CVA (cerebrovascular accident), HTN (hypertension), Acute hyponatremia ED Provider Note NAME: THAD MINA AGE: 88 SEX: F : 1935 ARRIVES VIA: Walk-In INFORMANT: Patient ED PROVIDER(S): Matias Freire DO CHIEF COMPLAINT: Left-sided weakness HPI: Patient is an 88-year-old female with a past medical history of hypertension, anemia, anxiety, IBS, depression and fatigue who presents to the ER for left-sided weakness. She notes this started last night's around 6:00. She notes that since then she has been having trouble moving around. She notes trouble with more fine motor skills. She feels unsteady with her gait even with a walker. She denies any headache or change in vision. No chest pain or shortness of breath. No nausea, vomiting, or diarrhea. notes that she has been sleeping more than usual. ADDITIONAL HISTORY OBTAINED: Per HPI Chronic Medical/Social Conditions Affecting Care: Per HPI PAST MEDICAL HISTORY:See Below PAST SURGICAL HISTORY:See Below FAMILY HISTORY:See Below SOCIAL HISTORY:See Below HOME MEDICATIONS:See Below ALLERGIES:See Below VITALS:See Below PHYSICAL EXAMINATION: GENERAL: Sitting up in bed, alert, well appearing, well nourished, no distress, non-toxic EYE EXAM: normal conjunctiva. PERRL and EOM's grossly intact. OROPHARYNX: no exudate, no erythema, lips, buccal mucosa, and tongue normal and mucous membranes are moist NECK: supple, no nuchal rigidity, no adenopathy, non-tender LUNGS: Clear to auscultation. Normal chest wall mechanics HEART: no murmurs, S1 normal and S2 normal ABDOMEN: abdomen soft, non-tender, normo-active bowel sounds, no masses, no rebound or guarding. BACK: Back is symmetrical on inspection and there is no deformity, no midline tenderness, no CVA tenderness. SKIN: no rashes and no bruising UPPER EXTREMITIES: upper extremities are grossly normal. LOWER EXTREMITIES: No pitting edema. NEURO EXAM: Normal sensorium, cranial nerves II-XII intact, normal speech, subtle weakness of the left upper and left lower extremity.. No drift. Gross sensation intact. Difficult with [id number] using the left lower extremity. Slight trouble with fine motor with left upper. MEDICAL DECISION MAKING: Patient is an 88-year-old female who presents ER for above-stated complaint. IV was established blood work is obtained. Labs show no significant leukocytosis. Mild anemia 11.7. INR unremarkable. BMP with mild hyponatremia at 132. LFTs bilirubin was unremarkable. Troponin was negative. On exam patient had subtle left-sided weakness. Has been present for under 24 hours and consequently stroke alert was obtained. She taken emergently to CT. CVA was visualized on the right thalamic region. Patient was given aspirin. She is updated bedside. Discussed case with the hospitalist admitted for further workup. Consults/Care Managements Discussions: Per [facility] Triage Nursing notes reviewed. Limited review of prior medical records performed Vital Signs: reviewed and remarkable for HTN Differential diagnosis: Differential Diagnosis includes but is not limited to ischemic Stroke, hemorrhagic stroke, bells palsy, mass, neoplasm, migraine headache, seizure, subarachnoid hemorrhage, TIA, and transient global amnesia. ER treatment provided: See below Diagnostics interpreted by me include EKG and cardiac monitoring as listed below: -Cardiac Monitoring: An order was placed for continuous cardiac monitoring. The monitor shows a rate of 80 with sinus rhythm. -ECG: Sinus rhythm rate 81 Normal axis No PVCs QTc 453 -Laboratory studies:Interpreted by me as stated above in MDM and shown below. Imaging studies: Xrays: As interpreted by me: Portable AP upright 1 view of the chest shows no focal infiltrate CTs show: CT angios of the head and neck shows CVA Procedures:none Critical Care: None Past Med/Surg History Problem List (Updated 01/14/24 @ 17:18 by Matias Freire DO) Acute hyponatremia (Acute) HTN (hypertension) (Acute) Acute CVA (cerebrovascular accident) (Acute) Hematoma of right upper extremity Acute CVA (cerebrovascular accident) Persistent dry cough Cervical spondylosis with myelopathy Effusion, left knee HTN (hypertension) (Chronic) Hyperlipidemia (Chronic) Generalized osteoarthritis of multiple sites (Chronic) Anemia (Chronic) Anxiety disorder (Chronic) Impaired fasting glucose (Chronic) Irritable bowel syndrome (Chronic) Knee pain, bilateral (Chronic) Osteopenia (Chronic) Pernicious anemia (Chronic) Vitamin B12 deficiency (Chronic) Vitamin D deficiency (Chronic) Depression (Chronic) Benzodiazepine dependence (Chronic) 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 Weakness (Acute) Acute hyponatremia (Acute) Diarrhea Severe protein-calorie malnutrition Hypomagnesemia DVT prophylaxis Gait disturbance Cognitive impairment Weight loss Idiopathic polyneuropathy Muscle spasm Lumbosacral radiculopathy Lumbar spinal stenosis Left shoulder pain Cervical radiculopathy Cervical spinal stenosis Cognitive complaints Allergic rhinitis Fatigue Irritable bowel syndrome with diarrhea Chronic diarrhea Medical History Hypokalemia Fall Diarrhea associated with pseudomembranous colitis Acute hyponatremia Vasovagal episode Hypotension Surgical History H/O breast surgery Hx of tonsillectomy Family History Father Congestive heart failure Myocardial infarction Aunt Breast cancer Atrial fibrillation Lung cancer Denies family history of Ovarian cancer Prostate cancer Diabetes Colorectal cancer Stroke Social History Smoking Status: Never smoker Second Hand Exposure: Yes; Do You Dip or Chew Tobacco: No; Hx Alcohol Use: Yes Alcohol type: wine Alcohol Intake Frequency: 4 or More x per/Week Hx Substance Use: No Preferred Language: Georgian Communication Ability: Effective Visual Impairment: Limited Hearing Ability: Normal [employer] Required: No Beliefs That Will Affect Care: None marital status: Current Living Situation: Spouse current occupational status: retired 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, 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 How many Children do You have: 2 Feels Safe at Home: Yes Childhood Exposure to Second-Hand Smoke: Yes caffeine: Yes Dental Care, Regularly: Yes Physical Activity Frequency: Does not Exercise Seatbelt Use: always Sunscreen Use: Yes Assistive Devices: None Allergies Allergies Allergy/AdvReac Type Severity Reaction Status Date / Time Penicillins Allergy Severe Unknown Verified 09/30/23 12:52 acetaminophen Allergy Unknown Verified 09/30/23 12:52 [From Tylenol-Codeine] aloe vera Allergy Unknown Verified 09/30/23 12:52 amlodipine [From Norvasc] Allergy Unknown Verified 09/30/23 12:52 ciprofloxacin Allergy Anaphylaxis Verified 09/30/23 12:52 codeine Allergy Unknown Verified 09/30/23 12:52 [From Tylenol-Codeine] meloxicam Allergy Unknown Verified 09/30/23 12:52 pseudoephedrine Allergy Unknown Verified 09/30/23 12:52 [From Sudafed] pantoprazole AdvReac Intermediate Gastrointestinal Verified 09/30/23 12:52 Upset Home Meds Home Medications Medication Instructions Recorded Confirmed aspirin 81 mg tablet,delayed 81 mg PO QAM 10/17/18 01/14/24 release biotin 5 mg capsule 5 mg PO QAM 10/17/18 01/14/24 [id number] 8 mg-folic 400 1 tab PO QAM 03/04/19 01/14/24 mcg-K 50 mcg-lutein 300 mcg tablet (Centrum Silver Women) ibuprofen 200 mg tablet (Advil) 400 mg PO Q4H PRN pain 03/18/20 01/14/24 cholecalciferol (vitamin D3) 10 2,000 unit PO DAILY 09/16/20 01/14/24 mcg (400 unit) capsule benzonatate 200 mg capsule 200 mg PO UD PRN cough 01/14/24 01/14/24 budesonide 32 mcg/actuation nasal 2 spray intranasal DAILY 01/14/24 01/14/24 spray cyanocobalamin (vitamin B-12) 1,000 mcg IM .[id number] 01/14/24 01/14/24 1,000 mcg/mL injection solution diazepam 5 mg tablet 2.5 - 5 mg PO UD PRN anxiety / 01/14/24 01/14/24 muscle spasm diphenoxylate-atropine 2.5 2 tab PO UD PRN diarrhea 01/14/24 01/14/24 mg-0.025 mg tablet (Lomotil) donepezil 5 mg tablet 5 mg PO HS 01/14/24 01/14/24 Previous Rx's Medication Instructions Recorded syringe with needle 3 mL 25 x 5/8" #6 ea 10/11/22 (BD Luer-French Syringe) olmesartan 20 mg tablet 20 mg PO DAILY #90 tabs 02/18/23 nitrofurantoin macrocrystal 100 mg 100 mg PO DAILY #90 caps 05/19/23 capsule lamotrigine 100 mg tablet 100 mg PO BID 90 days #180 tabs 09/12/23 buspirone 5 mg tablet 5 mg PO DAILY PRN anxiety #90 tabs 09/30/23 amitriptyline 25 mg tablet 50 mg (2 x 25 mg) PO HS #180 tabs 01/13/24 Results & Data (ED) Vital Signs Vital Signs - 24 hr 01/14/24 11:07 01/14/24 11:41 01/14/24 11:41 Temperature 36.4 C L Temperature Source Temporal Artery Scan Pulse Rate 81 Pulse Rate [Apical] 79 Pulse Rate from SpO2 Sensor Respiratory Rate 19 18 Respiratory Effort / Characteristics Non-Labored Spontaneous Non-Labored Spontaneous Respiratory Depth Normal Normal Respiratory Pattern Regular Blood Pressure 172/74 H 211/92 H Blood Pressure [Right Arm] 211/92 H Blood Pressure Mean 106 137 Blood Pressure Mean [Right Arm] 131 Blood Pressure Position [Right Arm] Lying Pulse Oximetry 94 95 Oxygen Delivery Method Room Air Room Air Sepsis Recent Fever Within 48 Hours No Sepsis New/Unexplained Change in Mental Status No Sepsis Action Taken by Nursing No Action Required 01/14/24 11:42 01/14/24 11:45 01/14/24 11:51 Temperature Temperature Source Pulse Rate 75 73 Pulse Rate [Apical] Pulse Rate from SpO2 Sensor 75 72 Respiratory Rate 16 14 Respiratory Effort / Characteristics Respiratory Depth Respiratory Pattern Blood Pressure 205/104 H Blood Pressure [Right Arm] Blood Pressure Mean 163 Blood Pressure Mean [Right Arm] Blood Pressure Position [Right Arm] Pulse Oximetry 95 98 Oxygen Delivery Method Sepsis Recent Fever Within 48 Hours Sepsis New/Unexplained Change in Mental Status Sepsis Action Taken by Nursing 01/14/24 12:00 01/14/24 12:00 01/14/24 12:18 Temperature Temperature Source Pulse Rate 74 76 Pulse Rate [Apical] Pulse Rate from SpO2 Sensor 76 75 Respiratory Rate 20 24 Respiratory Effort / Characteristics Respiratory Depth Respiratory Pattern Blood Pressure 203/95 H Blood Pressure [Right Arm] Blood Pressure Mean 131 Blood Pressure Mean [Right Arm] Blood Pressure Position [Right Arm] Pulse Oximetry 99 98 Oxygen Delivery Method Sepsis Recent Fever Within 48 Hours Sepsis New/Unexplained Change in Mental Status Sepsis Action Taken by Nursing 01/14/24 12:26 01/14/24 12:35 01/14/24 12:39 Temperature Temperature Source Pulse Rate 75 Pulse Rate [Apical] Pulse Rate from SpO2 Sensor Respiratory Rate Respiratory Effort / Characteristics Respiratory Depth Respiratory Pattern Blood Pressure 236/95 H 235/97 H Blood Pressure [Right Arm] Blood Pressure Mean 144 124 Blood Pressure Mean [Right Arm] Blood Pressure Position [Right Arm] Pulse Oximetry Oxygen Delivery Method Sepsis Recent Fever Within 48 Hours Sepsis New/Unexplained Change in Mental Status Sepsis Action Taken by Nursing 01/14/24 12:45 01/14/24 12:48 01/14/24 12:48 Temperature Temperature Source Pulse Rate 75 Pulse Rate [Apical] 65 Pulse Rate from SpO2 Sensor 78 Respiratory Rate 23 18 Respiratory Effort / Characteristics Non-Labored Spontaneous Respiratory Depth Normal Respiratory Pattern Regular Blood Pressure 227/131 H Blood Pressure [Right Arm] 227/131 H Blood Pressure Mean 190 Blood Pressure Mean [Right Arm] 163 Blood Pressure Position [Right Arm] Lying Pulse Oximetry 94 Oxygen Delivery Method Sepsis Recent Fever Within 48 Hours Sepsis New/Unexplained Change in Mental Status Sepsis Action Taken by Nursing 01/14/24 12:57 01/14/24 12:57 01/14/24 13:03 Temperature Temperature Source Pulse Rate 60 76 Pulse Rate [Apical] Pulse Rate from SpO2 Sensor Respiratory Rate 19 15 Respiratory Effort / Characteristics Respiratory Depth Respiratory Pattern Blood Pressure 181/120 H Blood Pressure [Right Arm] Blood Pressure Mean 132 Blood Pressure Mean [Right Arm] Blood Pressure Position [Right Arm] Pulse Oximetry Oxygen Delivery Method Sepsis Recent Fever Within 48 Hours Sepsis New/Unexplained Change in Mental Status Sepsis Action Taken by Nursing 01/14/24 13:09 01/14/24 13:09 01/14/24 13:10 Temperature Temperature Source Pulse Rate 65 59 L Pulse Rate [Apical] Pulse Rate from SpO2 Sensor Respiratory Rate 18 Respiratory Effort / Characteristics Respiratory Depth Respiratory Pattern Blood Pressure 227/131 H 188/84 H Blood Pressure [Right Arm] Blood Pressure Mean 152 Blood Pressure Mean [Right Arm] Blood Pressure Position [Right Arm] Pulse Oximetry Oxygen Delivery Method Sepsis Recent Fever Within 48 Hours Sepsis New/Unexplained Change in Mental Status Sepsis Action Taken by Nursing Laboratory Data 01/14/24 11:25 01/14/24 11:25 Lab Results 01/14/24 01/14/24 Range/Units 11:25 11:54 WBC 8.00 (4.8-10.8) K/ul RBC 3.65 L (4.20-5.40) M/uL Hgb 11.7 L (12.0-16.0) g/dl Hct 35.0 L (37.0-47.0) % MCV 95.9 (80.0-100.0) fL MCH 32.1 (25.0-34.0) pg MCHC 33.4 (32.0-36.0) g/dL RDW Std Deviation 41.5 (36.4-46.3) fL RDW Coeff of Ramone 11.9 (11.5-14.5) % Plt Count 288 (130-400) K/uL MPV 9.4 (9.4-12.4) fL Immature Gran % (Auto) 0.5 % Neut % (Auto) 73.3 % Lymph % (Auto) 13.5 % [place] % (Auto) 9.0 % Eos % (Auto) 3.1 % Baso % (Auto) 0.6 % Neut # (Auto) 5.86 (1.40-6.50) K/uL Lymph # (Auto) 1.08 L (1.20-3.40) K/uL [place] # (Auto) 0.72 H (0.11-0.59) K/uL Eos # (Auto) 0.25 (0.00-0.50) K/uL Baso # (Auto) 0.05 (0.00-0.20) K/uL Immature Gran # (Auto) 0.04 (0.01-0.20) K/uL PT 10.7 (9.0-12.0) Seconds INR 1.0 (0.9-1.1) APTT 28 (21-31) Seconds PTT Ratio 1.0 Sodium 132 L (136-145) mmol/L Potassium 3.9 (3.5-5.1) mmol/L Chloride 96 L (98-107) mmol/L Carbon Dioxide 29 (21-32) mmol/L Anion Gap 7 (3-11) BUN 12 (6-23) mg/dl Creatinine 0.89 (0.6-1.2) mg/dl Est Cr Clr Drug Dosing 26.5 ml/min Est GFR ( Amer) 67.5 ml/min Est GFR (Non-Af Amer) 58.3 ml/min BUN/Creatinine Ratio 13.5 (10-20) Glucose 101 H (70-99(Fasting)) mg/dl Calcium 9.4 (8.6-10.3) mg/dl Magnesium 1.7 (1.7-2.4) mg/dl Total Bilirubin 0.5 (0.2-1.0) mg/dl AST 37 (13-39) U/L ALT 34 (7-52) U/L Alkaline Phosphatase 86 (34-104) U/L Troponin I High Sens 7.3 (0-14) pg/ml Total Protein 6.6 (6.0-8.3) gm/dl Albumin 4.3 (3.4-5.0) gm/dl Globulin 2.3 L (2.5-4.0) gm/dl Albumin/Globulin Ratio 1.9 (0.9-2) Blood Type B Positive Antibody Screen NEGATIVE Administered Medications Benzonatate (Benzonatate 100 Mg Capsule) 200 mg PO BID PRN PRN Reason: cough Stop: 02/13/24 15:24 Last Admin: 01/14/24 16:59 Dose: 200 mg Documented By: JACK Discontinued Medications Aspirin (Aspirin Chew 324 Mg) 324 mg PO NOW STA Stop: 01/14/24 12:28 Last Admin: 01/14/24 12:36 Dose: 234 mg Documented By: CHELLE Ioversol (Optiray 320 125ml) 112 ml IV ONCE ONE Stop: 01/14/24 11:28 Last Admin: 01/14/24 11:27 Dose: 112 ml Documented By: ALBERTO Labetalol HCl (Labetalol Hcl Iv 5 Mg/Ml 20ml) 5 mg IV NOW STA Stop: 01/14/24 12:39 Last Admin: 01/14/24 13:09 Dose: 5 mg Documented By: CHELLE Imaging Data Radiologist's Impression: Head CT 01/14/24 11:20 CT angio neck with con, CT angio head w con, CT head/brain wo con CLINICAL HISTORY: neuro deficit, acute stroke suspected TECHNIQUE: Contiguous axial CT images of the head were acquired from the base of the skull to the vertex without intravenous contrast administration. CT angiography of the head and neck was performed following intravenous administration of iodinated contrast. Coronal and sagittal MIPS were obtained from the axial data set and were submitted for review. Automated dose lowering techniques and/or adjustment according to patient size were utilized for this examination. All measurements were calculated based on NASCET criteria. CT DOSE: 1020.55 mGy.cm Comparison: Comparison is made to MRI brain on 03/21/2020 FINDINGS: CT head: Areas of decreased attenuation are present in the periventricular and subcortical white matter bilaterally consistent with small vessel ischemic disease. Generalized cerebral atrophy with commensurate enlargement of the ventricles, sulci, and cisterns is also present. There is a focal hypodensity in the right thalamus which may possibly represent a lacunar infarct. Lungs and soft tissues are unremarkable. CTA Neck: A 3 vessel aortic arch is shown. There is no significant atherosclerotic plaque in the aortic arch or the origins of the innominate, left common carotid, and left subclavian arteries. There is mild calcified atherosclerotic plaque at the bifurcation of the bilateral common carotid arteries without hemodynamically significant flow stenosis. There is no dissection present. The left vertebral artery is dominant. CTA Head: The anterior and posterior cerebral circulations are patent. There is likely nonhemodynamically significant narrowing of the bilateral posterior cerebral arteries. IMPRESSION: 1. Findings compatible with a right thalamic lacunar strokes in this patient with left-sided weakness. 2. No occlusion, hemodynamically significant stenosis, or dissection in the major cervical arteries. 3. No occlusion, hemodynamically significant stenosis, aneurysm, dissection, or arteriovenous malformation in the major intracranial arteries. Assessment of stenosis of the internal carotid arteries is based on NASCET criteria. ACT 112: Negative or not required by law. Electronically signed by: Josh Santamaria M.D. 01/14/2024 11:46 AM Head CTA 01/14/24 11:20 CT angio neck with con, CT angio head w con, CT head/brain wo con CLINICAL HISTORY: neuro deficit, acute stroke suspected TECHNIQUE: Contiguous axial CT images of the head were acquired from the base of the skull to the vertex without intravenous contrast administration. CT angiography of the head and neck was performed following intravenous administration of iodinated contrast. Coronal and sagittal MIPS were obtained from the axial data set and were submitted for review. Automated dose lowering techniques and/or adjustment according to patient size were utilized for this examination. All measurements were calculated based on NASCET criteria. CT DOSE: 1020.55 mGy.cm Comparison: Comparison is made to MRI brain on 03/21/2020 FINDINGS: CT head: Areas of decreased attenuation are present in the periventricular and subcortical white matter bilaterally consistent with small vessel ischemic disease. Generalized cerebral atrophy with commensurate enlargement of the ventricles, sulci, and cisterns is also present. There is a focal hypodensity in the right thalamus which may possibly represent a lacunar infarct. Lungs and soft tissues are unremarkable. CTA Neck: A 3 vessel aortic arch is shown. There is no significant atherosclerotic plaque in the aortic arch or the origins of the innominate, left common carotid, and left subclavian arteries. There is mild calcified atherosclerotic plaque at the bifurcation of the bilateral common carotid arteries without hemodynamically significant flow stenosis. There is no dissection present. The left vertebral artery is dominant. CTA Head: The anterior and posterior cerebral circulations are patent. There is likely nonhemodynamically significant narrowing of the bilateral posterior cerebral arteries. IMPRESSION: 1. Findings compatible with a right thalamic lacunar strokes in this patient with left-sided weakness. 2. No occlusion, hemodynamically significant stenosis, or dissection in the major cervical arteries. 3. No occlusion, hemodynamically significant stenosis, aneurysm, dissection, or arteriovenous malformation in the major intracranial arteries. Assessment of stenosis of the internal carotid arteries is based on NASCET criteria. ACT 112: Negative or not required by law. Electronically signed by: Josh Santamaria M.D. 01/14/2024 11:46 AM Neck CTA 01/14/24 11:20 CT angio neck with con, CT angio head w con, CT head/brain wo con CLINICAL HISTORY: neuro deficit, acute stroke suspected TECHNIQUE: Contiguous axial CT images of the head were acquired from the base of the skull to the vertex without intravenous contrast administration. CT angiography of the head and neck was performed following intravenous administration of iodinated contrast. Coronal and sagittal MIPS were obtained from the axial data set and were submitted for review. Automated dose lowering techniques and/or adjustment according to patient size were utilized for this examination. All measurements were calculated based on NASCET criteria. CT DOSE: 1020.55 mGy.cm Comparison: Comparison is made to MRI brain on 03/21/2020 FINDINGS: CT head: Areas of decreased attenuation are present in the periventricular and subcortical white matter bilaterally consistent with small vessel ischemic disease. Generalized cerebral atrophy with commensurate enlargement of the ventricles, sulci, and cisterns is also present. There is a focal hypodensity in the right thalamus which may possibly represent a lacunar infarct. Lungs and soft tissues are unremarkable. CTA Neck: A 3 vessel aortic arch is shown. There is no significant atherosclerotic plaque in the aortic arch or the origins of the innominate, left common carotid, and left subclavian arteries. There is mild calcified atherosclerotic plaque at the bifurcation of the bilateral common carotid arteries without hemodynamically significant flow stenosis. There is no dissection present. The left vertebral artery is dominant. CTA Head: The anterior and posterior cerebral circulations are patent. There is likely nonhemodynamically significant narrowing of the bilateral posterior cerebral arteries. IMPRESSION: 1. Findings compatible with a right thalamic lacunar strokes in this patient with left-sided weakness. 2. No occlusion, hemodynamically significant stenosis, or dissection in the major cervical arteries. 3. No occlusion, hemodynamically significant stenosis, aneurysm, dissection, or arteriovenous malformation in the major intracranial arteries. Assessment of stenosis of the internal carotid arteries is based on NASCET criteria. ACT 112: Negative or not required by law. Electronically signed by: Josh Santamaria M.D. 01/14/2024 11:46 AM Chest X-Ray 01/14/24 11:48 XR chest 1V portable CLINICAL HISTORY: cva TECHNIQUE: Single frontal radiograph of the chest was obtained. Comparison: Comparison is made to chest radiographs 09/30/2023 FINDINGS: No lines and tubes are seen. Cardiomegaly is noted. Incidental note is made of breast implants with calcifications. The lungs are clear. No evidence of pleural effusion or pneumothorax. IMPRESSION: No acute chest disease. ACT 112: Negative or not required by law. Electronically signed by: Josh Santamaria M.D. 01/14/2024 12:16 PM Discharge Plan Visit Data Chief Complaint: TIA Symptoms Stated Complaint: TIA SYMPTOMS ED Provider: Matias Freire Discharge Problem: Acute CVA (cerebrovascular accident), HTN (hypertension), Acute hyponatremia Discharge Instructions Interventions: ED Discharge Assessment Last Done: 01/14/24 15:26 Discharge Problem: HTN (hypertension) Qualifiers: Hypertension type: unspecified Qualified Code(s): I10 - Essential (primary) hypertension
[2024-01-14] MEDS: OPTIRAY 320 125ml IV ONE (11:27)
[2024-01-14 11:38] LABS: Basophils # (auto) 0.05 K/uL (0.00-0.20); Basophils % (auto) 0.6 %; Eosinophils # (auto) 0.25 K/uL (0.00-0.50); Eosinophils % (auto) 3.1 %; Hemoglobin 11.7 g/dl (12.0-16.0); Immature Granulocytes # (auto) 0.04 K/uL (0.01-0.20); Immature Granulocytes % (auto) 0.5 %; Lymphocytes # (auto) 1.08 K/uL (1.20-3.40); Lymphocytes % (auto) 13.5 %; Mean Corpuscular Hemoglobin 32.1 pg (25.0-34.0); Mean Corpuscular Hgb Conc 33.4 g/dL (32.0-36.0); Mean Corpuscular Volume 95.9 fL (80.0-100.0); Mean Platelet Volume 9.4 fL (9.4-12.4); Monocytes # (auto) 0.72 K/uL (0.11-0.59); Neutrophils # (auto) 5.86 K/uL (1.40-6.50); Neutrophils % (auto) 73.3 %; Platelet Count 288 K/uL (130-400); RDW Coefficient of Variation 11.9 % (11.5-14.5); RDW Standard Deviation 41.5 fL (36.4-46.3); Red Blood Count 3.65 M/uL (4.20-5.40)
--- NOTE | 2024-01-14 11:48 | CT Scan Report ---
CT angio neck with con, CT angio head w con, CT head/brain wo con CLINICAL HISTORY: neuro deficit, acute stroke suspected TECHNIQUE: Contiguous axial CT images of the head were acquired from the base of the skull to the keara parminder without intravenous contrast administration. CT angiography of the head and neck was performed f ollowing intravenous administration of iodinated contrast. Coronal and sagittal MIPS were obtained fr om the axial data set and were submitted for review. Automated dose lowering techniques and/or adjus tment according to patient size were utilized for this examination. All measurements were calculated based on NASCET criteria. CT DOSE: 1020.55 mGy.cm Comparison: Comparison is made to MRI brain on 03/21/2020 FINDINGS: CT head: Areas of decreased attenuation are present in the periventricular and subcortical white henri er bilaterally consistent with small vessel ischemic disease. Generalized cerebral atrophy with comme nsurate enlargement of the ventricles, sulci, and cisterns is also present. There is a focal hypodens ity in the right thalamus which may possibly represent a lacunar infarct. Lungs and soft tissues are unremarkable. CTA Neck: A 3 vessel aortic arch is shown. There is no significant atherosclerotic plaque in the aor tic arch or the origins of the innominate, left common carotid, and left subclavian arteries. There is mild calcified atherosclerotic plaque at the bifurcation of the bilateral common carotid arteries without hemodynamically significant flow stenosis. There is no dissection present. The left vertebral artery is dominant. CTA Head: The anterior and posterior cerebral circulations are patent. There is likely nonhemodynami clifton significant narrowing of the bilateral posterior cerebral arteries. IMPRESSION: 1. 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 2. No occlusion, hemodynamically significant stenosis, or dissection in the major cervical arteries. 3. No occlusion, hemodynamically significant stenosis, aneurysm, dissection, or arteriovenous malfor mation in the major intracranial arteries. Assessment of stenosis of the internal carotid arteries is based on NASCET criteria. ACT 112: Negative or not required by law. Electronically signed by: Josh Santamaria M.D. 01/14/2024 11:46 AM
[2024-01-14 11:56] LABS: Albumin Globulin Ratio 1.9 (0.9-2); Albumin Level 4.3 gm/dl (3.4-5.0); BUN Creatinine Ratio 13.5 (10-20); Bilirubin,Total 0.5 mg/dl (0.2-1.0); Calcium 9.4 mg/dl (8.6-10.3); Creatinine Clr Calc Pharmacy 26.5 ml/min; Est GFR (African American) 67.5 ml/min; Est GFR (Non-African American) 58.3 ml/min; Globulin 2.3 gm/dl (2.5-4.0); Magnesium 1.7 mg/dl (1.7-2.4); Potassium 3.9 mmol/L (3.5-5.1); Total Protein 6.6 gm/dl (6.0-8.3)
[2024-01-14 12:02] LABS: Troponin I High Sensitivity 7.3 pg/ml (0-14)
[2024-01-14 12:03] LABS: Partial Thromboplastin Time 28 Seconds (21-31); Prothrombin Time 10.7 Seconds (9.0-12.0)
--- NOTE | 2024-01-14 12:17 | XRay Report ---
XR chest 1V portable CLINICAL HISTORY: cva TECHNIQUE: Single frontal radiograph of the chest was obtained. Comparison: Comparison is made to chest radiographs 09/30/2023 FINDINGS: No lines and tubes are seen. Cardiomegaly is noted. Incidental note is made of breast implants with c alcifications. The lungs are clear. No evidence of pleural effusion or pneumothorax. IMPRESSION: No acute chest disease. ACT 112: Negative or not required by law. Electronically signed by: Josh Santamaria M.D. 01/14/2024 12:16 PM
--- NOTE | 2024-01-14 12:25 | History & Physical Report ---
Date of Service January 14, 2024 Assessment & Plan (1) Acute CVA (cerebrovascular accident): Plan: Acute onset of left UE/LE deficits around 6 PM on the evening of 01/12 Based on symptoms, patient was outside the window of [facility] Head CT was compatible with a right thalamic lacunar stroke Brain MRI ordered, pending Echocardiogram with bubble study ordered, pending Aspirin 324 mg p.o. given in the ED Neurochecks q4h No BP, labs, or IV in the LUE Aspirin 81 mg p.o. daily Start Plavix 75 mg p.o. daily for DAPT Speech therapy consulted for difficulty swallowing PT/OT evaluations appreciated Neurology consult appreciated A.m. CBC, BMP, A1c, fasting lipid panel (2) HTN (hypertension): Plan: Given timeline of symptoms and lacunar stroke, do not feel full permissive HTN is necessary; labetalol 5mg IV as needed for SBP >200, DBP >120 Hold olmesartan (CrCl <30) (3) Hematoma of right upper extremity: Plan: Patient reports she did sustain a fall on 01/11 Lateral right forearm with significant hematoma US soft tissue limited of the right upper extremity ordered, pending (4) Persistent dry cough: Plan: Tesmagalis Carmona Plan Disposition: Admit to PCU telemetry Full code N.p.o. for now, then advance diet once patient passes dysphagia screen VTE PPx: Hold chemical DVT PPx pending brain MRI; ASA + Plavix; TEDs History of Present Illness Chief Complaint: TIA symptoms Primary Care Provider: Tricia Haney MD Elsa is a pleasant 88-year-old female with PMH of cervical radiculopathy, idiopathic polyneuropathy, DJD, proteincalorie malnutrition, depression, benzodiazepine dependence, pernicious anemia, IBS, HTN, and anxiety. She p resented on 01/13 as a stroke alert in the ED. The evening prior, she was eating dinner and said something felt "wrong" she then slumped over in her chair and lost urinary continence. Patient's (Edinson) is present at bedside and provides additional history. He reports that she was awake (no LOC), but was not coherent and and became nonverbal. She then had a loss of urinary continence (which is new for her). No slurred speech or facial droop. No numbness/tingling in the face. Patient reports left upper extremity weakness and loss of proprioception when she would go to touch her face. No deficits in the left lower extremity. Patient did have a recent fall in the bathroom 2 days ago where she hit her head and right lateral forearm on the shower. Patient says she is feeling better today, but is still feeling weak. No prior history of strokes. She does have prior history of falls and ambulates with a walker/cane at home. She has history of sightlessness in this in her left eye but this is chronic and not new for her. No changes in vision in the right eye. Patient took her aspirin and olmesartan this morning; no other medications. No recent change in medications. She reports good compliance with taking her aspirin daily. Patient denies smoking or tobacco use. Patient is hypertensive at 227/131 at time admission; vitals otherwise stable. ED course: Aspirin 324 mg p.o. ROS: Patient endorses dry cough, loss of urinary continence, and LUE weakness/deficits. Patient denies fever, chills, night-sweats, headaches, blurry vision/loss of vision with right eye, facial droop, slurred speech, LLE deficits, chest pain, chest palpitations, pleuritic CP, SOB, abdominal pain, N/V/D, burning with urination, dysuria, blood in the urine or stool, or numbness or tingling in the arms/face/legs. Allergies Allergy/AdvReac Type Severity Reaction Status Date / Time Penicillins Allergy Severe Unknown Verified 09/30/23 12:52 acetaminophen Allergy Unknown Verified 09/30/23 12:52 [From Tylenol-Codeine] aloe vera Allergy Unknown Verified 09/30/23 12:52 amlodipine [From Norvasc] Allergy Unknown Verified 09/30/23 12:52 ciprofloxacin Allergy Anaphylaxis Verified 09/30/23 12:52 codeine Allergy Unknown Verified 09/30/23 12:52 [From Tylenol-Codeine] meloxicam Allergy Unknown Verified 09/30/23 12:52 pseudoephedrine Allergy Unknown Verified 09/30/23 12:52 [From Sudafed] pantoprazole AdvReac Intermediate Gastrointestinal Verified 09/30/23 12:52 Upset Home Medications Medication Instructions Recorded Confirmed Type aspirin 81 mg tablet,delayed 81 mg PO QAM 10/17/18 01/14/24 History release biotin 5 mg capsule 5 mg PO QAM 10/17/18 01/14/24 History uzkorocy-owfd-khyy 8 mg-folic 400 1 tab PO QAM 03/04/19 01/14/24 History mcg-K 50 mcg-lutein 300 mcg tablet (Centrum Silver Women) ibuprofen 200 mg tablet (Advil) 400 mg PO Q4H PRN pain 03/18/20 01/14/24 History cholecalciferol (vitamin D3) 10 2,000 unit PO DAILY 09/16/20 01/14/24 History mcg (400 unit) capsule syringe with needle 3 mL 25 x 5/8" #6 ea 10/11/22 09/30/23 Rx (BD Luer-French Syringe) olmesartan 20 mg tablet 20 mg PO DAILY #90 tabs 02/18/23 01/14/24 Rx nitrofurantoin macrocrystal 100 mg 100 mg PO DAILY #90 caps 05/19/23 01/14/24 Rx capsule lamotrigine 100 mg tablet 100 mg PO BID 90 days #180 tabs 09/12/23 01/14/24 Rx buspirone 5 mg tablet 5 mg PO DAILY PRN anxiety #90 tabs 09/30/23 01/14/24 Rx amitriptyline 25 mg tablet 50 mg (2 x 25 mg) PO HS #180 tabs 01/13/24 01/14/24 Rx benzonatate 200 mg capsule 200 mg PO UD PRN cough 01/14/24 01/14/24 History budesonide 32 mcg/actuation nasal 2 spray intranasal DAILY 01/14/24 01/14/24 History spray cyanocobalamin (vitamin B-12) 1,000 mcg IM .[id number] 01/14/24 01/14/24 History 1,000 mcg/mL injection solution diazepam 5 mg tablet 2.5 - 5 mg PO UD PRN anxiety / 01/14/24 01/14/24 History muscle spasm diphenoxylate-atropine 2.5 2 tab PO UD PRN diarrhea 01/14/24 01/14/24 History mg-0.025 mg tablet (Lomotil) donepezil 5 mg tablet 5 mg PO HS 01/14/24 01/14/24 History Past Med/Surg History Problem List (Updated 01/14/24 @ 17:18 by Matias Freire DO) Acute hyponatremia (Acute) HTN (hypertension) (Acute) Acute CVA (cerebrovascular accident) (Acute) Hematoma of right upper extremity Acute CVA (cerebrovascular accident) Persistent dry cough Cervical spondylosis with myelopathy Effusion, left knee HTN (hypertension) (Chronic) Hyperlipidemia (Chronic) Generalized osteoarthritis of multiple sites (Chronic) Anemia (Chronic) Anxiety disorder (Chronic) Impaired fasting glucose (Chronic) Irritable bowel syndrome (Chronic) Knee pain, bilateral (Chronic) Osteopenia (Chronic) Pernicious anemia (Chronic) Vitamin B12 deficiency (Chronic) Vitamin D deficiency (Chronic) Depression (Chronic) Benzodiazepine dependence (Chronic) 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 Weakness (Acute) Acute hyponatremia (Acute) Diarrhea Severe protein-calorie malnutrition Hypomagnesemia DVT prophylaxis Gait disturbance Cognitive impairment Weight loss Idiopathic polyneuropathy Muscle spasm Lumbosacral radiculopathy Lumbar spinal stenosis Left shoulder pain Cervical radiculopathy Cervical spinal stenosis Cognitive complaints Allergic rhinitis Fatigue Irritable bowel syndrome with diarrhea Chronic diarrhea Medical History Hypokalemia Fall Diarrhea associated with pseudomembranous colitis Acute hyponatremia Vasovagal episode Hypotension Surgical History H/O breast surgery Hx of tonsillectomy Family History Father Congestive heart failure Myocardial infarction Aunt Breast cancer Atrial fibrillation Lung cancer Denies family history of Ovarian cancer Prostate cancer Diabetes Colorectal cancer Stroke Social History Smoking Status: Never smoker Second Hand Exposure: Yes; Do You Dip or Chew Tobacco: No; Hx Alcohol Use: Yes Alcohol type: wine Alcohol Intake Frequency: 4 or More x per/Week Hx Substance Use: No Preferred Language: Somali Communication Ability: Effective Visual Impairment: Limited Hearing Ability: Normal Certified Medical Biller Required: No Beliefs That Will Affect Care: None marital status: Current Living Situation: Spouse current occupational status: retired 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, 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 How many Children do You have: 2 Feels Safe at Home: Yes Childhood Exposure to Second-Hand Smoke: Yes caffeine: Yes Dental Care, Regularly: Yes Physical Activity Frequency: Does not Exercise Seatbelt Use: always Sunscreen Use: Yes Assistive Devices: None Review of Systems Review of Systems: See HPI above Physical Exam Physical Exam: General: no acute distress; pleasant affect; non-toxic appearing; frail appearing; cooperative; SpO2 94% on RA HEENT: normocephalic, atraumatic; no scleral icterus; PERRLA w/ EOMs intact; vision and hearing grossly intact; patient reports sensation is intact and symmetric in the face bilaterally assessed via light touch at 3 dermatomes; patient demonstrates ability to smile, frown, and lift eyebrows without unilateral deficits Neck: supple; no lymphadenopathy; trachea midline; patient demonstrates ability to shrug shoulders against resistance and rotate neck left and right without deficits Skin: warm, dry without signs of tenting; no cyanosis; no rashes, bruising, or erythema noted; hematoma with bulging mass noted on the right lateral forearm CV: chest wall NTP; RRR; S1/S2 normal; no murmurs/rubs/gallops; pulses intact and symmetric at radial, DP, and PT Lungs: no acute respiratory distress; symmetrical chest wall expansion; clear breath sounds across all lung treadwell w/o adventitious sounds; no wheezing ABD: Soft, NTP; BS present; no rebound/guarding; no distention MSK: no tics or fasciculations; no edema noted in the LEs b/l, nonerythematous; 5/5 hand stone polisher strength bilaterally; left knee is wrapped in Nima bandage; 4/5 strength in the left lower extremity when compared to 5/5 in the right lower extremity Neuro: A&Ox3; normal mood and affect; fluent speech; no facial droop; no slurred speech; sensation grossly intact in the face/UEs/LEs b/l; negative pronator drift Results & Data Results & Data Vital Signs (Past 12 Hours) Vital Signs Temp Pulse Pulse Resp BP BP Pulse Ox 01/14/24 12:00 203/95 H 01/14/24 12:00 74 20 99 01/14/24 11:51 73 14 98 01/14/24 11:45 75 16 95 01/14/24 11:42 205/104 H 01/14/24 11:41 211/92 H 01/14/24 11:41 79 18 211/92 H 95 01/14/24 11:07 36.4 C L 81 19 172/74 H 94 O2 Del Method 01/14/24 12:00 01/14/24 12:00 01/14/24 11:51 01/14/24 11:45 01/14/24 11:42 01/14/24 11:41 01/14/24 11:41 Room Air 01/14/24 11:07 Room Air Laboratory Results Abnormal lab results 01/14/24 Range/Units 11:25 RBC 3.65 L (4.20-5.40) M/uL Hgb 11.7 L (12.0-16.0) g/dl Hct 35.0 L (37.0-47.0) % Lymph # (Auto) 1.08 L (1.20-3.40) K/uL [place] # (Auto) 0.72 H (0.11-0.59) K/uL Sodium 132 L (136-145) mmol/L Chloride 96 L (98-107) mmol/L Glucose 101 H (70-99(Fasting)) mg/dl Globulin 2.3 L (2.5-4.0) gm/dl Diagnostic Findings Head CT 01/14/24 11:20 CT angio neck with con, CT angio head w con, CT head/brain wo con CLINICAL HISTORY: neuro deficit, acute stroke suspected TECHNIQUE: Contiguous axial CT images of the head were acquired from the base of the skull to the vertex without intravenous contrast administration. CT angiography of the head and neck was performed following intravenous administration of iodinated contrast. Coronal and sagittal MIPS were obtained from the axial data set and were submitted for review. Automated dose lowering techniques and/or adjustment according to patient size were utilized for this examination. All measurements were calculated based on NASCET criteria. CT DOSE: 1020.55 mGy.cm Comparison: Comparison is made to MRI brain on 03/21/2020 FINDINGS: CT head: Areas of decreased attenuation are present in the periventricular and subcortical white matter bilaterally consistent with small vessel ischemic disease. Generalized cerebral atrophy with commensurate enlargement of the ventricles, sulci, and cisterns is also present. There is a focal hypodensity in the right thalamus which may possibly represent a lacunar infarct. Lungs and soft tissues are unremarkable. CTA Neck: A 3 vessel aortic arch is shown. There is no significant atherosclerotic plaque in the aortic arch or the origins of the innominate, left common carotid, and left subclavian arteries. There is mild calcified atherosclerotic plaque at the bifurcation of the bilateral common carotid arteries without hemodynamically significant flow stenosis. There is no dissection present. The left vertebral artery is dominant. CTA Head: The anterior and posterior cerebral circulations are patent. There is likely nonhemodynamically significant narrowing of the bilateral posterior cerebral arteries. IMPRESSION: 1. Findings compatible with a right thalamic lacunar strokes in this patient with left-sided weakness. 2. No occlusion, hemodynamically significant stenosis, or dissection in the major cervical arteries. 3. No occlusion, hemodynamically significant stenosis, aneurysm, dissection, or arteriovenous malformation in the major intracranial arteries. Assessment of stenosis of the internal carotid arteries is based on NASCET criteria. ACT 112: Negative or not required by law. Electronically signed by: Josh Santamaria M.D. 01/14/2024 11:46 AM Head CTA 01/14/24 11:20 CT angio neck with con, CT angio head w con, CT head/brain wo con CLINICAL HISTORY: neuro deficit, acute stroke suspected TECHNIQUE: Contiguous axial CT images of the head were acquired from the base of the skull to the vertex without intravenous contrast administration. CT ang iography of the head and neck was performed following intravenous administration of iodinated contrast. Coronal and sagittal MIPS were obtained from the axial data set and were submitted for review. Automated dose lowering techniques and/or adjustment according to patient size were utilized for this examination. All measurements were calculated based on NASCET criteria. CT DOSE: 1020.55 mGy.cm Comparison: Comparison is made to MRI brain on 03/21/2020 FINDINGS: CT head: Areas of decreased attenuation are present in the periventricular and subcortical white matter bilaterally consistent with small vessel ischemic disease. Generalized cerebral atrophy with commensurate enlargement of the ventricles, sulci, and cisterns is also present. There is a focal hypodensity in the right thalamus which may possibly represent a lacunar infarct. Lungs and soft tissues are unremarkable. CTA Neck: A 3 vessel aortic arch is shown. There is no significant atherosclerotic plaque in the aortic arch or the origins of the innominate, left common carotid, and left subclavian arteries. There is mild calcified atherosclerotic plaque at the bifurcation of the bilateral common carotid arteries without hemodynamically significant flow stenosis. There is no dissection present. The left vertebral artery is dominant. CTA Head: The anterior and posterior cerebral circulations are patent. There is likely nonhemodynamically significant narrowing of the bilateral posterior cerebral arteries. IMPRESSION: 1. Findings compatible with a right thalamic lacunar strokes in this patient with left-sided weakness. 2. No occlusion, hemodynamically significant stenosis, or dissection in the major cervical arteries. 3. No occlusion, hemodynamically significant stenosis, aneurysm, dissection, or arteriovenous malformation in the major intracranial arteries. Assessment of stenosis of the internal carotid arteries is based on NASCET criteria. ACT 112: Negative or not required by law. Electronically signed by: Josh Santamaria M.D. 01/14/2024 11:46 AM Neck CTA 01/14/24 11:20 CT angio neck with con, CT angio head w con, CT head/brain wo con CLINICAL HISTORY: neuro deficit, acute stroke suspected TECHNIQUE: Contiguous axial CT images of the head were acquired from the base of the skull to the vertex without intravenous contrast administration. CT angiography of the head and neck was performed following intravenous administration of iodinated contrast. Coronal and sagittal MIPS were obtained from the axial data set and were submitted for review. Automated dose lowering techniques and/or adjustment according to patient size were utilized for this examination. All measurements were calculated based on NASCET criteria. CT DOSE: 1020.55 mGy.cm Comparison: Comparison is made to MRI brain on 03/21/2020 FINDINGS: CT head: Areas of decreased attenuation are present in the periventricular and subcortical white matter bilaterally consistent with small vessel ischemic disease. Generalized cerebral atrophy with commensurate enlargement of the ventricles, sulci, and cisterns is also present. There is a focal hypodensity in the right thalamus which may possibly represent a lacunar infarct. Lungs and soft tissues are unremarkable. CTA Neck: A 3 vessel aortic arch is shown. There is no significant atherosclerotic plaque in the aortic arch or the origins of the innominate, left common carotid, and left subclavian arteries. There is mild calcified atherosclerotic plaque at the bifurcation of the bilateral common carotid a rteries without hemodynamically significant flow stenosis. There is no dissection present. The left vertebral artery is dominant. CTA Head: The anterior and posterior cerebral circulations are patent. There is likely nonhemodynamically significant narrowing of the bilateral posterior cerebral arteries. IMPRESSION: 1. Findings compatible with a right thalamic lacunar strokes in this patient with left-sided weakness. 2. No occlusion, hemodynamically significant stenosis, or dissection in the major cervical arteries. 3. No occlusion, hemodynamically significant stenosis, aneurysm, dissection, or arteriovenous malformation in the major intracranial arteries. Assessment of stenosis of the internal carotid arteries is based on NASCET criteria. ACT 112: Negative or not required by law. Electronically signed by: Josh Santamaria M.D. 01/14/2024 11:46 AM Chest X-Ray 01/14/24 11:48 XR chest 1V portable CLINICAL HISTORY: cva TECHNIQUE: Single frontal radiograph of the chest was obtained. Comparison: Comparison is made to chest radiographs 09/30/2023 FINDINGS: No lines and tubes are seen. Cardiomegaly is noted. Incidental note is made of breast implants with calcifications. The lungs are clear. No evidence of pleural effusion or pneumothorax. IMPRESSION: No acute chest disease. ACT 112: Negative or not required by law. Electronically signed by: Josh Santamaria M.D. 01/14/2024 12:16 PM ECG Additional Comments: ECG revealed normal sinus rhythm at 81 bpm; QTc 453 Code Status & VTE Plan Code Status Full code VTE Prophylaxis Plan VTE Prophylaxis will be ordered: Yes Supervising Physician Co-Signing Physician Notes Patient seen and examined, chart reviewed, case discussed with Anuel Spears PA-C and I agree with the assessment and plan as above except as otherwise noted Labs and images reviewed Presents with left-sided sensory changes With numbness and tingling of the left upper extremity.CT with evidence of right thalamic lacunar stroke. MRI pending. Aspirin given patient's BP 712332 on review. Interval SBP while in the ER reportedly 160s, patient seen at the bedside, BP 236/95, recheck 235/97. 5 mg of labetalol given for severe hypertension with lacunar CVA. Given lacunar stroke within 24 hours will allow for permissive hypertension but reduce parameters from 220/122 goal systolic less than 200. BP on recheck improved to 181 systolic. At bedside following this patient feels improved. 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 Sensation of soft touch is intact in hands, arms, and lower extremities bilaterally without asymmetry. No speech deficits. No facial asymmetry. She does have a hematoma with small mobile density overlying her right lateral proximal forearm. She had a fall 2 days ago with bruising which started at that time, small density is new.? Hematoma however mass is discrete and mobile. Ultrasound obtained, consistent with complex hematoma. Continue aspirin daily. Will discuss DAPT with neurology. Agree with above. Echo with bubble study pending. Elsa is seen at the bedside on evening reevaluation. She has had an acute episode of increased weakness in her right and left upper extremity. Is having difficulty lifting her left leg off the bed, worsened strength compared to prior. BP 186/90. BSG 80s. She responds and follows commands weakly has slumped slightly to the right side. Endorses sensation is intact in her hands and feet. Patient taken to CT to reevaluate for hemorrhagic conversion; no hemorrhage is noted. Additional fluids given, continue care as otherwise noted. PG Care Time/CCT Total # of Minutes Spent Total Time Spent with Patient: Total time spent is greater than 50% in coordination of care (as documented) at patient's floor/unit and/or counseling patient: Coding [place] [address] INT INP/OBS CARE 3/75MIN Patient Type Established Medical Decision Making High Complexity Diagnoses Acute CVA (cerebrovascular accident) I63.9 Essential hypertension I10 Hypertension type: unspecified Hematoma of right upper extremity S40.021A Persistent dry cough R05.3 (2) HTN (hypertension) Hypertension type: unspecified Qualified Code(s): I10 - Essential (primary) hypertension
[2024-01-14] MEDS: ASPIRIN CHEW 324 MG PO STA (12:36)
[2024-01-14] MEDS ORDERED: PHARMACIST DISCHARGE MED REC CONSULT PRN (13:06)
[2024-01-14] MEDS: LABETALOL HCL IV 5 MG/ML 20ML IV STA ×2 (13:09→20:16)
--- NOTE | 2024-01-14 15:16 | Magnetic Resonance Report ---
MR brain wo con CLINICAL HISTORY: Right thalamic lacunar stroke TECHNIQUE: Multiplanar and multisequence MR images of the brain were obtained without intravenous con trast. Comparison: Comparison is made to CTA head and neck 01/14/2024 and MRI brain 01/11/2020 FINDINGS: No abnormal restricted diffusion is identified, there is minimal increased DWI signal in the right th alamus without corresponding ADC abnormality. Foci of T2 and FLAIR hyperintensity are noted in the pa raventricular areas consistent with chronic small vessel ischemic disease. Focal T2 hyperintensities in the right thalamus with corresponding T1 hypointensity The ventricular system is normal in appeara nce. No mass is seen. There is no mass effect or midline shift. There is no evidence of acute intrapa renchymal hemorrhage. No extra axial fluid collections are seen. The corpus callosum, pituitary gland , and cerebellar tonsils appear grossly unremarkable. Flow voids of the major intracranial arterial vessels are identified. The imaged portions of the para nasal sinuses, mastoid air cells, and orbits are unremarkable. IMPRESSION: There is edema in the right thalamus at the site of suspected lacunar infarct without definitely rest ricted diffusion. Findings may represent early DWI reversal or subacute infarct. ACT 112: Negative or not required by law. Electronically signed by: Josh Santamaria M.D. 01/14/2024 3:14 PM
[2024-01-14] MEDS ORDERED: busPIRone 5 MG TAB PO PRN (15:25)
[2024-01-14] MEDS ORDERED: DIPHENOXYLATE/ATROPINE 2.5/0.025MG TAB PO PRN (15:25)
[2024-01-14] MEDS ORDERED: ONDANSETRON INJ 2 MG/ML 2 ML VIAL IV PRN (15:25)
[2024-01-14] MEDS ORDERED: ACETAMINOPHEN 325 MG TAB PO PRN (15:25)
[2024-01-14] MEDS: BENZONATATE 100 MG CAPSULE PO PRN (16:59)
--- NOTE | 2024-01-14 17:03 | Ultrasound Report ---
US soft tissue ext ltd CLINICAL HISTORY: Right forearm hematoma TECHNIQUE: Real-time grayscale sonographic images of the right forearm were obtained. Comparison: None available at the time of this dictation. FINDINGS/IMPRESSION: Complex superficial fluid collection at the point of interest measures 2.7 x 1.7 x 0.6 cm without internal flow. Findings are compatible with hematoma. ACT 112: Negative or not required by law. Electronically signed by: Josh Santamaria M.D. 01/14/2024 5:02 PM
--- NOTE | 2024-01-14 18:35 | XCELERA ---
[id number]
--- NOTE | 2024-01-14 19:34 | CT Scan Report ---
CT head/brain wo con CLINICAL HISTORY: r/o hemorrhagic conversion Technique: Contiguous axial CT images of the head were acquired from the base of the skull to the keara parminder without intravenous contrast administration. Images were viewed in brain, subdural and bone [facility] . Automated dose lowering techniques and/or adjustment according to patient size were utilized for this exam. Comparison: Comparison is made to CTA head 2023 Findings: Areas of decreased attenuation are present in the periventricular and subcortical white matter bilate rally consistent with small vessel ischemic disease. Generalized cerebral atrophy with commensurate e nlargement of the ventricles, sulci, and cisterns is also present. There is no acute intracranial hem orrhage or evidence of acute territorial infarction. No shift of the midline structures, mass effect, or extra-axial abnormalities are shown. Atherosclerotic calcifications are present in the intracran ial segments of the internal carotid arteries. Hypodensity in the right thalamus is seen Imaged portions of the paranasal sinuses and mastoid air cells are clear. The orbits appear normal. There are no acute fractures of the calvaria or scalp swelling. Impression: No evidence of intracranial hemorrhage. ACT 112: Negative or not required by law. Electronically signed by: Josh Santamaria M.D. 01/14/2024 7:32 PM
[2024-01-14] MEDS: lamoTRIgine 100 MG TAB PO SCH (21:14)
[2024-01-14] MEDS: DONEPEZIL HCL 5 MG TAB PO SCH (21:14)
[2024-01-14] MEDS: LABETALOL HCL IV 5 MG/ML 20ML IV PRN (21:14)
[2024-01-14] MEDS: AMITRIPTYLINE HCL 50 MG TAB PO SCH (22:23)
--- NOTE | 2024-01-15 07:35 | Neurology Consultation ---
Date of Consultation January 15, 2024 Assessment & Plan (1) Fainting: History of Present Illness Attending Physician: Matias Beaulieu, History of Present Illness pt this morning feeling well. denies having left side weakness. pt with good speech and able to give detail hx of her condition. mri brain reviewed, negative DWI changes, minor FLAIR change on rt thalamus that is nonspecific in nature. pt well known to Dr. Connolly in neurology for known MCI and anxiety and benzo dependency. admission HPI: Elsa is a pleasant 88-year-old female with PMH of cervical radiculopathy, idiopathic polyneuropathy, DJD, proteincalorie malnutrition, depression, benzodiazepine dependence, pernicious anemia, IBS, HTN, and anxiety. She presented on 01/13 as a stroke alert in the ED. The evening prior, she was eating dinner and said something felt "wrong" she then slumped over in her chair and lost urinary continence. Patient's (Edinson) is present at bedside and provides additional history. He reports that she was awake (no LOC), but was not coherent and and became nonverbal. She then had a loss of urinary continence (which is new for her). No slurred speech or facial droop. No numbness/tingling in the face. Patient reports left upper extremity weakness and loss of proprioception when she would go to touch her face. No deficits in the left lower extremity. Patient did have a recent fall in the bathroom 2 days ago where she hit her head and right lateral forearm on the shower. Patient says she is feeling better today, but is still feeling weak. No prior history of strokes. She does have prior history of falls and ambulates with a walker/cane at home. She has history of sightlessness in this in her left eye but this is chronic and not new for her. No changes in vision in the right eye. Patient took her aspirin and olmesartan this morning; no other medications. No recent change in medications. She reports good compliance with taking her aspirin daily. Patient denies smoking or tobacco use. Patient is hypertensive at 227/131 at time admission; vitals otherwise stable. Allergies Allergy/AdvReac Type Severity Reaction Status Date / Time Penicillins Allergy Severe Unknown Verified 09/30/23 12:52 acetaminophen Allergy Unknown Verified 09/30/23 12:52 [From Tylenol-Codeine] aloe vera Allergy Unknown Verified 09/30/23 12:52 amlodipine [From Norvasc] Allergy Unknown Verified 09/30/23 12:52 ciprofloxacin Allergy Anaphylaxis Verified 09/30/23 12:52 codeine Allergy Unknown Verified 09/30/23 12:52 [From Tylenol-Codeine] meloxicam Allergy Unknown Verified 09/30/23 12:52 pseudoephedrine Allergy Unknown Verified 09/30/23 12:52 [From Sudafed] pantoprazole AdvReac Intermediate Gastrointestinal Verified 09/30/23 12:52 Upset Home Medications Medication Instructions Recorded Confirmed Type aspirin 81 mg tablet,delayed 81 mg PO QAM 10/17/18 01/14/24 History release biotin 5 mg capsule 5 mg PO QAM 10/17/18 01/14/24 History [id number] 8 mg-folic 400 1 tab PO QAM 03/04/19 01/14/24 History mcg-K 50 mcg-lutein 300 mcg tablet (Centrum Silver Women) ibuprofen 200 mg tablet (Advil) 400 mg PO Q4H PRN pain 03/18/20 01/14/24 History cholecalciferol (vitamin D3) 10 2,000 unit PO DAILY 09/16/20 01/14/24 History mcg (400 unit) capsule syringe with needle 3 mL 25 x 5/8" #6 ea 10/11/22 09/30/23 Rx (BD Luer-French Syringe) olmesartan 20 mg tablet 20 mg PO DAILY #90 tabs 02/18/23 01/14/24 Rx nitrofurantoin macrocrystal 100 mg 100 mg PO DAILY #90 caps 05/19/23 01/14/24 Rx capsule lamotrigine 100 mg tablet 100 mg PO BID 90 days #180 tabs 09/12/23 01/14/24 Rx buspirone 5 mg tablet 5 mg PO DAILY PRN anxiety #90 tabs 09/30/23 01/14/24 Rx amitriptyline 25 mg tablet 50 mg (2 x 25 mg) PO HS #180 tabs 01/13/24 01/14/24 Rx benzonatate 200 mg capsule 200 mg PO UD PRN cough 01/14/24 01/14/24 History budesonide 32 mcg/actuation nasal 2 spray intranasal DAILY 01/14/24 01/14/24 History spray cyanocobalamin (vitamin B-12) 1,000 mcg IM .[id number] 01/14/24 01/14/24 History 1,000 mcg/mL injection solution diazepam 5 mg tablet 2.5 - 5 mg PO UD PRN anxiety / 01/14/24 01/14/24 History muscle spasm diphenoxylate-atropine 2.5 2 tab PO UD PRN diarrhea 01/14/24 01/14/24 History mg-0.025 mg tablet (Lomotil) donepezil 5 mg tablet 5 mg PO HS 01/14/24 01/14/24 History Patient History Medical History Hypokalemia Fall Diarrhea associated with pseudomembranous colitis Acute hyponatremia Vasovagal episode Hypotension Surgical History H/O breast surgery Hx of tonsillectomy Family History Father Congestive heart failure Myocardial infarction Aunt Breast cancer Atrial fibrillation Lung cancer Denies family history of Ovarian cancer Prostate cancer Diabetes Colorectal cancer Stroke Social History Smoking Status: Never smoker Second Hand Exposure: Yes; Do You Dip or Chew Tobacco: No; Hx Alcohol Use: Yes Alcohol type: wine Alcohol Intake Frequency: 4 or More x per/Week Hx Substance Use: No Preferred Language: Romansh Communication Ability: Effective Visual Impairment: Limited Hearing Ability: Normal Teletypist Required: No Beliefs That Will Affect Care: None marital status: Current Living Situation: Spouse current occupational status: retired 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 good conversation skills. fluent speech, normal comprehension, no apraxia, CN: PERRL, Full EOM, symmetric face, midline T/U/P, grossly full ROM neck Motor: No abnormal movements, normal tone, 5-/5 t/o bilaterally t/o upper and lower ext. Sens: intact to touch b/l grossly Coord: intact FNT b/l DTR: 1+ sym b/l Gait: deferred Impression: 88 yo female with reported fainting and ?transient left side weakness. Pt has known uncontrolled HTN for many years and anxiety and benzo dependent. her MRI brain finding with thalamic lesion does not appears to be acute stroke as DWI is negative. It appears chronic nonspecific change and not acute in nature. I do not feel she had stroke. Her fainting likely either BP related or cardiogenic in nature, likely simple syncopal event. Med side effect also consideration. Recommendations: check for metabolic disorders. Also check U/A no need for DATP at this point, can continue ASA. echo normal. better BP control. I do not feel she needs further stroke work up and no need for permissive HTN. avoid dehydration. consider terminal manager cardiac monitoring as outpt. pt can have routine f/u with Dr. Connolly as outpt when discharged. please call again if new question. Chart reviewed I have spent more than 50% educating patient about potential diagnosis and neurological evaluation and coordinating care with patient's treatment team. Total time spent (including chart review and coordination of care): 60 min (this includes chart review). Results & Data Vital Signs (Past 12 Hours) Vital Signs Temp Pulse Pulse Resp BP BP BP 01/15/24 07:20 36.5 C 68 17 136/71 01/15/24 04:38 36.5 C 66 16 138/69 01/14/24 23:54 36.7 C 62 17 125/58 L 01/14/24 22:23 64 01/14/24 21:29 60 180/69 H 01/14/24 21:28 61 01/14/24 21:14 79 222/79 H 01/14/24 20:46 36.6 C 79 12 222/79 H Pulse Ox O2 Del Method 01/15/24 07:20 95 Room Air 01/15/24 04:38 96 Room Air 01/14/24 23:54 96 Room Air 01/14/24 22:23 01/14/24 21:29 01/14/24 21:28 01/14/24 21:14 01/14/24 20:46 95 Room Air PG Care Time/CCT Total # of Minutes Spent Total Time Spent with Patient: Total time spent is greater than 50% in coordination of care (as documented) at patient's floor/unit and/or counseling patient: Coding Level of Care Code 09984 IN/OBS CONSULT LVL 4,60M Diagnoses Syncope, unspecified syncope type R55 Syncope type: unspecified (1) Fainting Syncope type: unspecified Qualified Code(s): R55 - Syncope and collapse
[2024-01-15 07:58] LABS: Basophils # (auto) 0.06 K/uL (0.00-0.20); Eosinophils # (auto) 0.23 K/uL (0.00-0.50); Eosinophils % (auto) 3.7 %; Hematocrit (blood only) 31.6 % (37.0-47.0); Hemoglobin 10.6 g/dl (12.0-16.0); Immature Granulocytes # (auto) 0.01 K/uL (0.01-0.20); Immature Granulocytes % (auto) 0.2 %; Lymphocytes # (auto) 1.11 K/uL (1.20-3.40); Mean Corpuscular Hemoglobin 31.9 pg (25.0-34.0); Mean Corpuscular Hgb Conc 33.5 g/dL (32.0-36.0); Mean Corpuscular Volume 95.2 fL (80.0-100.0); Mean Platelet Volume 9.8 fL (9.4-12.4); Monocytes % (auto) 11.4 %; Neutrophils # (auto) 4.05 K/uL (1.40-6.50); Neutrophils % (auto) 65.7 %; Platelet Count 270 K/uL (130-400); RDW Coefficient of Variation 11.9 % (11.5-14.5); RDW Standard Deviation 41.1 fL (36.4-46.3); Red Blood Count 3.32 M/uL (4.20-5.40); White Blood Count 6.16 K/ul (4.8-10.8)
[2024-01-15 08:01] LABS: BUN Creatinine Ratio 16.4 (10-20); Chol HDL Ratio 2.2 (0-5); Creatinine Clr Calc Pharmacy 31.6 ml/min; Est GFR (African American) 85.8 ml/min; Est GFR (Non-African American) 74.1 ml/min; Potassium 4.1 mmol/L (3.5-5.1)
[2024-01-15] MEDS ORDERED: nitrofurantoin macrocrystaL 50 MG CAP PO SCH (09:00)
[2024-01-15 09:25] LABS: Estimated Average Glucose 111 mg/dl; Hemoglobin A1C 5.5 % (4.5-5.6)
[2024-01-15] MEDS: FLUTICASONE PROPIONATE NA SPR 16 GM BTL NAE SCH (10:00)
[2024-01-15] MEDS: CLOPIDOGREL BISULFATE 75 MG TAB PO SCH (10:00)
[2024-01-15] MEDS: ASPIRIN 81 MG ECTAB PO SCH (10:00)
--- NOTE | 2024-01-15 10:00 | Hospitalist Progress Note ---
Date of Service January 15, 2024 Assessment & Plan Admission and Anticipated Discharge Date Admission Date: January 14, 2024 Results & Data Results & Data Vital Signs (Past 12 Hours) Vital Signs Temp Pulse Pulse Resp BP BP Pulse Ox 01/15/24 07:20 36.5 C 68 17 136/71 95 01/15/24 04:38 36.5 C 66 16 138/69 96 01/14/24 23:54 36.7 C 62 17 125/58 L 96 01/14/24 22:23 64 O2 Del Method 01/15/24 07:20 Room Air 01/15/24 04:38 Room Air 01/14/24 23:54 Room Air 01/14/24 22:23 Resident Activity Tracking Resident Involvement: Resident Care Provided Care Provided: Adult Hospital Medicine
[2024-01-15 11:19] VITALS: TEMP 98.1; O2SAT 96
[2024-01-15 14:15] VITALS: BP 170/73; RESP 16
--- NOTE | 2024-01-15 16:16 | Discharge Summary ---
Date of Service January 15, 2024 Admission HPI Per Admitting Provider Elsa is a pleasant 88-year-old female with PMH of cervical radiculopathy, idiopathic polyneuropathy, DJD, proteincalorie malnutrition, depression, benzodiazepine dependence, pernicious anemia, IBS, HTN, and anxiety. She presented on 01/13 as a stroke alert in the ED. The evening prior, she was eating dinner and said something felt "wrong" she then slumped over in her chair and lost urinary continence. Patient's (Edinson) is present at bedside and provides additional history. He reports that she was awake (no LOC), but was not coherent and and became nonverbal. She then had a loss of urinary continence (which is new for her). No slurred speech or facial droop. No numbness/tingling in the face. Patient reports left upper extremity weakness and loss of proprioception when she would go to touch her face. No deficits in the left lower extremity. Patient did have a recent fall in the bathroom 2 days ago where she hit her head and right lateral forearm on the shower. Patient says she is feeling better today, but is still feeling weak. No prior history of strokes. She does have prior history of falls and ambulates with a walker/cane at home. She has history of sightlessness in this in her left eye but this is chronic and not new for her. No changes in vision in the right eye. Patient took her aspirin and olmesartan this morning; no other medications. No recent change in medications. She reports good compliance with taking her aspirin daily. Patient denies smoking or tobacco use. Patient is hypertensive at 227/131 at time admission; vitals otherwise stable. ED course: Aspirin 324 mg p.o. ROS: Patient endorses dry cough, loss of urinary continence, and LUE weakness/deficits. Patient denies fever, chills, night-sweats, headaches, blurry vision/loss of vision with right eye, facial droop, slurred speech, LLE deficits, chest pain, chest palpitations, pleuritic CP, SOB, abdominal pain, N/V/D, burning with urination, dysuria, blood in the urine or stool, or numbness or tingling in the arms/face/legs. Admission Exam Per Admitting Provider General: no acute distress; pleasant affect; non-toxic appearing; frail appearing; cooperative; SpO2 94% on RA HEENT: normocephalic, atraumatic; no scleral icterus; PERRLA w/ EOMs intact; vision and hearing grossly intact; patient reports sensation is intact and symmetric in the face bilaterally assessed via light touch at 3 dermatomes; patient demonstrates ability to smile, frown, and lift eyebrows without unilateral deficits Neck: supple; no lymphadenopathy; trachea midline; patient demonstrates ability to shrug shoulders against resistance and rotate neck left and right without deficits Skin: warm, dry without signs of tenting; no cyanosis; no rashes, bruising, or erythema noted; hematoma with bulging mass noted on the right lateral forearm CV: chest wall NTP; RRR; S1/S2 normal; no murmurs/rubs/gallops; pulses intact a nd symmetric at radial, DP, and PT Lungs: no acute respiratory distress; symmetrical chest wall expansion; clear breath sounds across all lung treadwell w/o adventitious sounds; no wheezing ABD: Soft, NTP; BS present; no rebound/guarding; no distention MSK: no tics or fasciculations; no edema noted in the LEs b/l, nonerythematous; 5/5 tax revenue officer strength bilaterally; left knee is wrapped in Nima bandage; 4/5 strength in the left lower extremity when compared to 5/5 in the right lower extremity Neuro: A&Ox3; normal mood and affect; fluent speech; no facial droop; no slurred speech; sensation grossly intact in the face/UEs/LEs b/l; negative pronator drift Principal Diagnosis Polypharmacy, dehydration, presyncope Discharge Exam Constitutional WD/WN, vitals as above Respiratory normal respiratory effort, lungs clear to auscultation Cardiovascular RRR, no murmur, no edema Skin right forearm with diffuse hematoma Neurologic CN's II-XI intact bilaterally Speech / Cognition: normal speech Coordination: normal [id number] test Strength preserved and symmetrical in bilateral UEs and LEs Psychiatric A+Ox3, euthymic affect Discharge Data Allergies Allergy/AdvReac Type Severity Reaction Status Date / Time Penicillins Allergy Severe Unknown Verified 09/30/23 12:52 acetaminophen Allergy Unknown Verified 09/30/23 12:52 [From Tylenol-Codeine] aloe vera Allergy Unknown Verified 09/30/23 12:52 amlodipine [From Norvasc] Allergy Unknown Verified 09/30/23 12:52 ciprofloxacin Allergy Anaphylaxis Verified 09/30/23 12:52 codeine Allergy Unknown Verified 09/30/23 12:52 [From Tylenol-Codeine] meloxicam Allergy Unknown Verified 09/30/23 12:52 pseudoephedrine Allergy Unknown Verified 09/30/23 12:52 [From Sudafed] pantoprazole AdvReac Intermediate Gastrointestinal Verified 09/30/23 12:52 Upset Consultations 01/14/24 12:18 ED Decision to Admit Stat 01/14/24 13:06 Consult Neurology Routine Ordered Studies 01/14/24 11:20 CT angio head w con Stat CT angio neck with con Stat CT head/brain wo con Stat 01/14/24 13:16 US soft tissue ext ltd Urgent 01/14/24 13:23 MRI Brain [MR brain wo con] Stat 01/14/24 19:16 CT head/brain wo con Stat Hospital Course (1) Pre-syncope: (2) Dehydration: (3) Polypharmacy: (4) Hematoma of right upper extremity: (5) HTN (hypertension): (6) Hyperlipidemia: Plan Presyncopal episode likely due to dehydration, polypharmacy: On clarification of hx with patient and , episode of concern appears more consistent with presyncope and without focal weakness, sensory changes etc. that would match stroke pattern Stoke work up significant for: - CT head with focal hypodensity in right thalamus, otherwise CTA head/neck without occlusion, HD significant stenosis, dissection, aneurysm Neurology was consulted, felt MRI brain did not appear consistent with acute stroke as DWI was negative - more consistent with chronic, nonspecific changes. - DAPT deferred - Secondary risk factors: Total cholesterol 219, LDL 100, A1c 5.5% Dehydration: - Recommended increasing fluid consumption with goal of 60+ oz per day Polypharmacy: - Pt with a lengthy med list with several with potential to induce altered mentation. Recommend truncating as feasible and using a pillbox to avoid medication administration errors. If unable to manage medications in the future, would recommend home health nursing involvement as needed. Total Time Total Time Spent Total Time Spent (In Minutes): <30 Discharge Plan Discharge Items Patient Disposition: Home - Self-Care Reason For Visit: CVA Discharge Diagnosis: polypharmacy, weakness Activity: Resume your previous activity Non-emergency contact: Primary Care Provider Call non-emergency contact if: you have any medication questions and your symptoms worsen Follow-up/Referrals: Tricia Haney MD [Primary Care Provider] - Diet: Heart Healthy Addtl Attending Provider Instructions: As discussed, we cannot say for certain what caused the symptoms that led to you being hospitalized, but based on imaging studies and the assessment by our neurology team, it does not appear that you had a stroke. Rather, it is more likely that this was related to a combination of dehydration or medication error. Moving forward, we highly suggest that you keep track of your fluid intake, with a goal of drinking at least 60 ounces per day. Additionally, we would recommend using a pill box/sorter for your medications to reduce the risk of accidentally missing or doubling doses. Pending Studies at Discharge: No Stand-Alone Forms: [facility] [employer], Smoking Cessation Medications and DC Order Prescriptions: Continued ibuprofen [Advil] 200 mg tablet 400 mg PO Q4H PRN (Reason: pain) Rx Instructions: max qid (DME) BD Luer-French Syringe 3 mL 25 x 5/8" syringe See Dose Instructions .ROUTE .MEDSUPPLY Qty: 6 3RF Dose Instruction: As directed Rx Instructions: Use as directed with Vitamin B injection every 2 weeks olmesartan 20 mg tablet 20 mg PO DAILY Qty: 90 3RF nitrofurantoin macrocrystal 100 mg capsule 100 mg PO DAILY Qty: 90 3RF Rx Instructions: 100mg daily OR 100mg within 2h after intercourse For UTI prevention lamotrigine 100 mg tablet 100 mg PO BID 90 Days Qty: 180 3RF amitriptyline 25 mg tablet 50 mg PO HS Qty: 180 3RF Rx Instructions: hasnt picked up yet per pharmacy Centrum Silver Women 8 mg iron-400 mcg-300 mcg tablet 1 tab PO QAM cholecalciferol (vitamin D3) 10 mcg (400 unit) capsule 2,000 unit PO DAILY Rx Instructions: OTC unable to verify biotin 5 mg capsule 5 mg PO QAM Rx Instructions: OTC unable to verify aspirin 81 mg tablet,delayed release (DR/EC) 81 mg PO QAM Rx Instructions: OTC unable to verify buspirone 5 mg tablet 5 mg PO DAILY PRN (Reason: anxiety) Qty: 90 3RF budesonide 32 mcg/actuation spray,non-aerosol 2 spray intranasal DAILY Rx Instructions: INSTILL 2 SPRAYS INTO EACH NOSTRIL DAILY donepezil 5 mg tablet 5 mg PO HS Rx Instructions: last filled 11/07 for 90 day supply TAKE 1 TABLET BY MOUTH AT BEDTIME benzonatate 200 mg capsule 200 mg PO UD PRN (Reason: cough) Rx Instructions: original: 200 mg po bid prn last filled 09/12/23 for 100 mg po bid prn cough per pharmacy diphenoxylate-atropine [Lomotil] 2.5-0.025 mg tablet 2 tab PO UD PRN (Reason: diarrhea) Rx Instructions: last filled in Nov 2022 per pharmacy 2 tab po qid prn cyanocobalamin (vitamin B-12) 1,000 mcg/mL solution 1,000 mcg IM .[id number] Rx Instructions: INJECT 1000MCG (1ML) INTRAMUSCULARLY (INTO THE MUSCLE) EVERY 2 WEEKS ON M ONDAY last filled 12/27 diazepam 5 mg tablet 2.5 - 5 mg PO UD PRN (Reason: anxiety / muscle spasm) Rx Instructions: 2.5-5 mg po bid prn per pharmacy Discharge Orders: Discharge Order (Routine); Ordered 01/15/24 Ordered By: Ramana Hendrix Admission Data Admit Date/Time: 01/14/24 13:12 Attending Provider: Matias Beaulieu Admit Provider: Cali Romero Primary Care Provider: Tricia Haney Other Providers: Cali Romero; Brandon Grant Other Interventions: Discharge Summary Assessment (RN) Last Done: 01/15/24 16:24 Supervising Physician Co-Signing Physician Notes I personally examined the patient and verified all guthrie points of history and exam, discussed case, and agree with decision making with Dr Hendrix Feeling better and would like to go home. Revisited HPI from both patient and husbandneither note either on open ended/spontaneous speech type questioning and taking the HPI or on directed questioning of any focal neurodeficitsrather she was more globally weak almost unconscious but not quite. Again both deny any lateralizing signs. Vitals noted, in general she is awake and alert pleasant no distress. HEENT normocephalic atraumatic mucous membranes moist. Breathing unlabored no accessory muscle use good effort. Skin without rashes pallor or icterus. Neuro without focal deficits. Near syncope/weaknessnothing about her history seems stroke or strokelike, so while I would have to defer to neurology and radiology about the specific MRI findings, her clinical picture certainly does not fit with this at allagree with neurology in this respect. I suspect either dehydration (she notes she probably drinks 20-30 ounces a day) or polypharmacy (she has a rather long and risky medication list but notes that she takes it just based on knowing what she supposed to take when she is supposed to take itdoes not utilize a pill counter pillbox etc. We discussed hydration and tracking fluidswith a goal of 60 ounces of fluid a day, and we discussed utilizing a pill counter/pillbox to ensure her polypharmacy risk is lessened. Safe/stable for home. Otherwise as above Resident Activity Tracking Resident Involvement: Resident Care Provided Care Provided: Adult Hospital Medicine
[2024-01-15 16:26] VITALS: PULSE 85
--- NOTE | 2024-01-15 19:39 | Billing Data ---
Date of Service January 15, 2024 Coding Level of Care Code 96469 IN/OBS DISCH 30 MIN/LESS
--- NOTE | 2024-01-17 05:20 | Electrocardiogram Report ---
Test Reason : Blood Pressure : */* mmHG Vent. Rate : 81 BPM Atrial Rate : 81 BPM P-R Int : 176 ms QRS Dur : 88 ms QT Int : 390 ms P-R-T Axes : 37 36 76 degrees QTcB Int : 453 ms Normal sinus rhythm Normal ECG When compared with ECG of 10-Jan-2020 22:59, Premature atrial complexes are no longer Present Nonspecific T wave abnormality now evident in Lateral leads Confirmed by Onur Tapia ([id number]) on 01/17/2024 5:20:51 AM Referred By: REFERRED SELF Confirmed By: Onur Tapia
--- NOTE | 2024-01-17 05:47 | Electrocardiogram Report ---
Test Reason : Blood Pressure : */* mmHG Vent. Rate : 74 BPM Atrial Rate : 74 BPM P-R Int : 168 ms QRS Dur : 88 ms QT Int : 406 ms P-R-T Axes : 34 30 59 degrees QTcB Int : 450 ms Normal sinus rhythm Normal ECG When compared with ECG of 14-Jan-2024 11:38, (unconfirmed) No significant change was found Confirmed by Onur Tapia ([id number]) on 01/17/2024 5:47:05 AM Referred By: REFERRED SELF Confirmed By: Onur Tapia
== END 2024-01-15 16:39 | disposition home or self-care (01) | DRG 641 ==
LOC: ED 11:03 → EDINP 13:12 → SUATTDRO 13:12 → 4W 15:26